=== PATIENT | female | born 1945 | race Caucasian/White ===

== ENCOUNTER 2018-02-05 01:12 | Outpatient (CLI) | payer OTHER, SELFPAY ==
--- NOTE | 2018-02-05 10:22 | DI.RAD_ITS ---
SYMPTOM/DIAGNOSIS: PRODUCTIVE COUGH, NO RESPONSE TO AB, R05 PA AND LATERAL CHEST: The lungs are free of infiltrate. There is no pleural effusion. The cardiovascular structures are intact. SUMMARY: No evidence of acute cardiopulmonary disease.
== END 2018-02-05 01:32 ==
PROVIDERS: PCP Family Medicine; Visit Provider Family Medicine
DX: R05 Cough (principal)
CPT/HCPCS: 71046

== ENCOUNTER 2018-11-19 00:36 | Outpatient (CLI) | payer OTHER, SELFPAY ==
--- NOTE | 2018-11-19 05:44 | DI.US_ITS ---
SYMPTOM/DIAGNOSIS: LUQ PAIN ABDOMEN ULTRASOUND: The visualized liver parenchyma appears somewhat echogenic and there is decrease through transmission raising the possibility of hepatic steatosis. Dependent portions of the liver are non visualized. No evidence of cholelithiasis or biliary dilatation. Pancreas appears intact as visualized. The kidneys are unremarkable bilaterally with no evidence of hydronephrosis or nephrolithiasis. There is a question of mild splenomegaly with the spleen measuring up to about 15 cm. in length. No focal splenic lesion identified. Abdominal aorta and IVC are of normal diameter as visualized. CONCLUSION: No evidence of cholelithiasis. Hepatic steatosis and question mild splenomegaly.
--- NOTE | 2018-11-19 07:30 | DI.MAMMO_ITS ---
SYMPTOM/DIAGNOSIS: SCREENING, Z12.31 MAMMOGRAMS: Mammograms were interpreted according to the usual protocol including computer analysis with CAD system, tomosynthesis and C view imaging. The breasts are of moderate density with fairly symmetrical distribution of fibroglandular tissue. No dominant mass identified in either breast. There is a group of microcalcifications in the left breast which have appeared stable on previous examinations including 01/2016. On the current examination, there is an increased number of microcalcifications in this area which lies in the lower outer quadrant of the left breast. This includes some questionable new pleamorphic forms. No other significant change identified in either breast. Regarding the change in the group of microcalcifications of the left breast, the possibility of malignancy could not be excluded. Additional evaluation with magnification spot compression views of the left breast and left breast ultrasound recommended to evaluate the need for biopsy. CONCLUSION: Additional mammographic views of the left breast requested as described above. Breast ultrasound recommended. Category 0. Breast density, Category B. MQSA ASSESSMENT OF FINDINGS: Incomplete: Needs additional imaging evaluation. Category 0. Patient will receive a letter notifying them of these results. BI-RADS category B. There are scattered areas of fibroglandular density.
== END 2018-11-19 00:56 ==
PROVIDERS: PCP Family Medicine; Visit Provider Family Medicine
DX: Z12.31 Encounter for screening mammogram for malignant neoplasm of breast (principal); R92.8 Other abnormal and inconclusive findings on diagnostic imaging of breast; R10.12 Left upper quadrant pain; K76.0 Fatty (change of) liver, not elsewhere classified; R16.1 Splenomegaly, not elsewhere classified
CPT/HCPCS: 77063; 77067; 76700

== ENCOUNTER 2018-11-26 00:37 | Outpatient (CLI) | payer OTHER, SELFPAY ==
--- NOTE | 2018-11-26 10:00 | DI.COMBO_ITS ---
SYMPTOM/DIAGNOSIS: F/U INCREASED NUMBER OF MICROCALCIFICATIONS ON MAMMOGRAM LT BREAST LEFT BREAST ADDITIONAL VIEWS AND LEFT BREAST ULTRASOUND: Additional images are interpreted according to the usual protocol including tomosynthesis and 2D imaging. Mediolateral magnification compression spot films of the left breast show a grouping of small calcifications, some of which appear pleamorphic as previously noted. At ultrasound, there is no mass. The possibility of a malignancy could not be excluded in this patient and further assessment with a biopsy is recommended. IMPRESSION: Category 4, biopsy is recommended. MQSA ASSESSMENT OF FINDINGS: Suspicious. Biopsy should be considered. Category 4. Patient will receive a letter notifying them of these results. BI-RADS category B. There are scattered areas of fibroglandular density.
== END 2018-11-26 00:57 ==
PROVIDERS: PCP Family Medicine; Visit Provider Family Medicine
DX: Z12.31 Encounter for screening mammogram for malignant neoplasm of breast (principal); R92.0 Mammographic microcalcification found on diagnostic imaging of breast
CPT/HCPCS: 76642; 77063; 77067

== ENCOUNTER 2020-02-24 07:59 | Outpatient (CLI) | payer OTHER, SELFPAY ==
[2020-02-26 14:48] LABS: Patient Race White; SARS-CoV-2 RNA Undetected (Undetected); SARS-CoV-2 Specimen Source Nasal
== END 2020-02-24 08:19 ==
PROVIDERS: PCP Family Medicine; Visit Provider Emergency Medicine
DX: J02.9 Acute pharyngitis, unspecified (principal); R05 Cough; R51.9 Headache, unspecified; R53.83 Other fatigue
CPT/HCPCS: U0003

== ENCOUNTER 2020-05-30 20:00 | Emergency (ER) | payer OTHER, SELFPAY ==
[2020-05-30 20:12] VITALS: BP 191/70; PULSE 79; RESP 18; O2SAT 95
--- NOTE | 2020-05-30 20:13 | ED.GENADUL_ITS ---
Discharge Plan Disposition Patient Disposition: HOME Condition: Good Discharge Details Clinical Impression: Contusion of right wrist, Abrasion Primary Care Provider: Karen Tobias ED Provider: Debbie Herrera Home Meds and New Rx's Prescriptions: Continued Restasis 1 EACH dropperette 1 drp OU BID Qty: 3 RF: 4 clobetasol-emollient 15 GM cream 15 gm Topical BID 14 Days Qty: 1 RF: 0 albuterol sulfate [ProAir HFA] 8.5 GM HFA aerosol inhaler 2 puff Inhalation Q6H PRN Qty: 1 RF: 0 amlodipine 5 mg tablet 5 mg PO DAILY Qty: 90 RF: 4 lisinopril 40 mg tablet 40 mg PO DAILY Qty: 90 RF: 4 pantoprazole [Protonix] 40 mg tablet,delayed release (DR/EC) 40 mg PO DAILY Qty: 90 RF: 4 pravastatin 20 mg tablet 20 mg PO DAILY Qty: 90 RF: 4 sertraline 50 mg tablet 50 mg PO DAILY Qty: 90 RF: 4 ketoconazole 2 % cream 1 applic TP BID Qty: 60 RF: 3 Discharge Instructions Instructions: Contusion in Adults (ED) Additional Instructions: Encourage rest, ice, elevation. May continue with Tylenol and/or ibuprofen as needed for discomfort. Please continue with splint while pain persist. Please follow-up with primary care for reevaluation next 1 to 2 weeks. Also discussed your elevated blood pressure further with your primary care. If you develop any new or worsening symptoms please seek care urgently once again. Referrals: Karen Tobias MD [Primary Care Provider] - Discharge Data Discharge Date/Time-TO BE ENTERED AT DEPARTURE: 05/30/20 20:55 Medical Decision Making Patient is a pleasant 74-year-old [id number] female presents today with chief complaint of right wrist pain. She reports a prior to arrival she fell and caught herself on a gate. She denies other injury condition. Did not trigger hand. She has been noted to tingling. Pain is at radiate. Indicates the distal radius as area of maximal tenderness. Suffered a small superficial abrasion on the anterior aspect of the wrist. Sensation is intact. No pain over the snuffbox. Good range of motion with no ligamentous. Capillary refill intact, 2+ distal pulses. Full range of motion of her fingers and elbow. Range of motion of the wrist is limited secondary to pain. Patient reports that she had NSAID prior to arrival. We will augment this with Tylenol. Patient is reviewed by myself. Do not see any misalignment or fracture. When read from radiologist. Nothing evidence to suggest scaphoid fracture. She has no pain with axial loading of the thumb, no pain palpation of the anatomical snuffbox. We will place the patient in a universal wrist splint to help support during the time of discomfort. Encouraged rest, ice, elevation. She will continue with Tylenol and ibuprofen as needed for comfort. Blood pressure is initially quite elevated lipids come down significantly. She does have a history of hypertension will discuss this further with her primary care. Also questions and concerns were addressed and she is agreement this plan. She will follow-up with primary care in the next 1 to 2 weeks for reevaluation of her wrist. FINDINGS: Bones/joints: No fracture or subluxation. Degenerative changes. Soft tissues: Normal. IMPRESSION: No acute findings. HPI General Mode of arrival: ambulatory . Date/Time Provider Initiated Documentation: 05/30/20 20:12 . Limitations to Documentation: no limitations . Information obtained by: patient and RN notes reviewed . History of Present Illness 74 year old F presents to the emergency department with the chief complaint of right wrist pain after FOOSH, described as severe, with intens ity rated at 10. Quality is described as aching, and is localized to the right and upper extremity. Patient reports no radiation. Patient started experiencing this hour(s) (1) and it has been constant. Immobilization improves symptom(s), Movement worsens symptoms . Patient notes no other symptoms.. Patient did receive the following treatments prior to arrival, NSAID Related Data Home Medications Medication Instructions Recorded Confirmed Restasis 1 drp OU BID #3 ea 11/04/17 03/12/19 clobetasol-emollient 15 gm TOPICAL BID 14 Days #1 tube 11/04/17 03/12/19 albuterol sulfate [ProAir HFA] 2 puff INHALATION Q6H PRN #1 01/01/18 03/12/19 inhaler amlodipine 5 mg tablet 5 mg PO DAILY #90 tab-cap 08/17/19 lisinopril 40 mg tablet 40 mg PO DAILY #90 tab-cap 08/17/19 pantoprazole 40 mg tablet,delayed 40 mg PO DAILY #90 tab-cap 08/17/19 release pravastatin 20 mg tablet 20 mg PO DAILY #90 tab-cap 08/17/19 sertraline 50 mg tablet 50 mg PO DAILY #90 tab-cap 08/17/19 ketoconazole 2 % topical cream 1 applic TP BID #60 gm 10/29/19 Previous Rx's Medication Instructions Recorded Restasis 1 drp OU BID #3 ea 11/04/17 clobetasol-emollient 15 gm TOPICAL BID 14 Days #1 tube 11/04/17 albuterol sulfate [ProAir HFA] 2 puff INHALATION Q6H PRN #1 01/01/18 inhaler amlodipine 5 mg tablet 5 mg PO DAILY #90 tab-cap 08/17/19 lisinopril 40 mg tablet 40 mg PO DAILY #90 tab-cap 08/17/19 pantoprazole 40 mg tablet,delayed 40 mg PO DAILY #90 tab-cap 08/17/19 release pravastatin 20 mg tablet 20 mg PO DAILY #90 tab-cap 08/17/19 sertraline 50 mg tablet 50 mg PO DAILY #90 tab-cap 08/17/19 ketoconazole 2 % topical cream 1 applic TP BID #60 gm 10/29/19 Allergies Allergy/AdvReac Type Severity Reaction Status Date / Time Metronidazole HCl AdvReac Severe stomach Unverified 03/12/19 09:00 [From Flagyl] upset amoxicillin [Amoxicillin] AdvReac Intermediate GI UPSET Unverified 03/12/19 09:00 clavulanic acid AdvReac Intermediate GI UPSET Unverified 03/12/19 09:00 erythromycin base AdvReac Intermediate Nausea Unverified 03/12/19 09:00 [Erythromycin Base] meloxicam AdvReac Intermediate Nausea Unverified 03/12/19 09:00 Sulfa (Sulfonamide AdvReac Intermediate NAUSEA AND Unverified 03/12/19 09:00 Antibiotics) VOMITING Review of Systems Constitutional Constitutional: Reports as per HPI, Denies chills, Denies fever(s), Denies headache(s) and Denies weakness ENT Ears, Nose, Mouth, and Throat: Denies headache(s) Cardiovascular Cardiovascular: Reports as per HPI Respiratory Respiratory: Reports as per HPI and Denies cough Musculoskeletal Musculoskeletal: Reports as per HPI and Denies tingling Integumentary/Breasts Skin/Breast: Reports as per HPI, Denies rash and Denies wounds Neurologic Neurologic: Reports as per HPI, Denies headache(s), Denies tingling, Denies paresthesias and Denies weakness [facility] Medical History Acute gouty arthritis (05/14/17) Benign essential hypertension COPD (chronic obstructive pulmonary disease) Diverticulosis of colon without diverticulitis GERD (gastroesophageal reflux disease) Heart murmur Hypercholesterolemia Non-alcoholic fatty liver disease Osteoarthritis of knee Polyp of colon 07/2010; 12/03/12 : multiple polyps including tubular adenomas and pandiverticulosis. 2016:sessile serrated adenoma/ Surgical History Abdominal hysterectomy fibroids Bilateral salpingectomy with oophorectomy Cervical Procedure (~1983) 1983; cryotherapy and bx Colonoscopy - IV Sedation (12/03/12) Colonoscopy - MAC (04/20/16) Dilation and curettage (~1994) for benign reasons. Had superficial wound dehiscence. Social History Smoking/Tobacco Use Status: Former Tobacco Use Quit Date: 06/13/12 Pack-years: 25 Smoking risk assessment performed?: Yes Alcohol Intake: current Alcohol Intake frequency: a few times a month Drug use: Never Substance use type: does not use Adopted: Yes Duration: 15-30 minutes/day Frequency: 3-4 times per week Seatbelt use: always Do you feel safe at home: Yes Do you feel safe in your relationship?: Yes Exam Const General: cooperative, healthy appearing, comfortable, no acute distress, well developed and well groomed Nutritional Appearance: average body habitus and well nourished Orientation: alert and awake Resp Effort & Inspection: normal respiratory effort, able to speak in complete sentences and no respiratory distress Cardio Rate: regular rate Rhythm: regular rhythm Skin Trauma: abrasion (anterior right wrist) Neuro General: patient alert and patient awake Cognition: normal cognition Speech: speech normal Gait: normal gait Motor: muscle tone normal throughout Sensory Exam: no sensory deficits noted Extrem Elbow/forearm/wrist images: 1. area of tenderness and swelling. Small area of abrasion noted with no active bleeding, no deep wound. Full ROM of fingers and elbow. No numbness or tingling. No snuff box tenderness. ROM of wrist limited secondary to pain. No palpable fracture. Psych Appearance: grossly normal and well kempt Mental Status: mental status grossly normal Speech and Movement: speech and movement normal
--- NOTE | 2020-05-30 20:15 | DI.RAD_ITS ---
EXAM: XR WRIST RT COMPLETE CLINICAL HISTORY: radial pain after FOOSH. TECHNIQUE: 2D digital imaging was performed. COMPARISON: No exams were available for comparison FINDINGS: BONES: On the lateral view there appears to be disruption of the cortex of the posterior aspect of th e distal radius suspicious for nondisplaced fracture. No bony destructive lesion is seen. JOINTS: The carpal bones are normally aligned. Degenerative changes are seen in the wrist particularl y at the 1st CMC joint. SOFT TISSUE: Soft tissue swelling about the wrist. IMPRESSION: Findings suspicious for nondisplaced fracture involving the posterior cortex of the distal radius bes t appreciated on the lateral view. DATA REPOSITORY: RADIATION DOSE DELIVERED:
[2020-05-30] MEDS: Acetaminophen 500 MG TAB 1000 MG PO (20:28)
[2020-05-30 20:48] VITALS: BP 165/74
[2020-05-30 20:52] VITALS: BP 165/74; PULSE 79; RESP 18; TEMP 36.4; O2SAT 95
--- NOTE | 2020-05-30 21:09 | DI.VRAD_ITS ---
PROCEDURE INFORMATION: Exam: XR Right Wrist Exam date and time: 05/30/2020 8:26 PM Age: 74 years old Clinical indication: Wrist; Right; Patient HX: Radial pain after foosh TECHNIQUE: Imaging protocol: XR Right wrist. Views: 3 or more views. COMPARISON: No relevant prior studies available. FINDINGS: Bones/joints: No fracture or subluxation. Degenerative changes. Soft tissues: Normal. IMPRESSION: No acute findings. Dictated and Authenticated by: Brenton Palmer MD. Ordering:MELODIE Lewis MD
== END 2020-05-30 20:55 | disposition home or self-care (01) ==
PROVIDERS: Emergency Provider Physician Assistant; PCP Family Medicine
DX: S60.811A Abrasion of right wrist, initial encounter (principal); X50.9XXA Other and unspecified overexertion or strenuous movements or postures, initial encounter; I10 Essential (primary) hypertension; J44.9 Chronic obstructive pulmonary disease, unspecified; Z87.891 Personal history of nicotine dependence
CPT/HCPCS: 29125; 99283; 73110

== ENCOUNTER 2020-06-06 10:21 | Outpatient (CLI) | payer OTHER, SELFPAY ==
--- NOTE | 2020-06-06 09:30 | DI.RAD_ITS ---
EXAM: XR WRIST RT COMPL NAVICULAR CLINICAL HISTORY: R wrist injury. TECHNIQUE: 2D digital imaging was performed. COMPARISON: CR,XR XR WRIST RT COMPLETE from 05/30/2020 FINDINGS: There is no evidence of acute fracture nor carpal dislocation nor significant ulnar variance. Previo usly described addition density on the dorsal aspect of distal radius is unchanged. I do not see an obvious fracture line at this level. Degenerative changes are noted in the lateral aspect of the wri st at the articulation between the thumb metacarpal and trapezium. There are no erosions. No signif icant ulnar variance. IMPRESSION: DATA REPOSITORY: RADIATION DOSE DELIVERED:
== END 2020-06-06 10:41 ==
PROVIDERS: PCP Family Medicine; Referring Provider Family Medicine; Visit Provider Student in an Organized Health Care Education/Training Program
DX: S60.211A Contusion of right wrist, initial encounter (principal); M19.031 Primary osteoarthritis, right wrist; M25.531 Pain in right wrist; S52.511A Displaced fracture of right radial styloid process, initial encounter for closed fracture; W01.0XXA Fall on same level from slipping, tripping and stumbling without subsequent striking against object, initial encounter
CPT/HCPCS: 99214; 73110

== ENCOUNTER 2020-07-01 10:15 | Outpatient (CLI) | payer OTHER, SELFPAY ==
--- NOTE | 2020-07-01 10:00 | DI.RAD_ITS ---
EXAM: XR WRIST RT COMPL NAVICULAR CLINICAL HISTORY: right wrist pain. TECHNIQUE: 2D digital imaging was performed. COMPARISON: CR XR WRIST RT COMPL NAVICULAR from 06/06/2020 FINDINGS: BONES: There is a subacute appearing fracture extending transversely through the distal radial metaph ysis. There is no visible involvement of the articular surface. The distal ulna and carpal bones ap pear intact. Degenerative changes are seen at the 1st carpal metacarpal joint.. No bony destructive lesion is seen. JOINTS: The carpal bones are normally aligned. SOFT TISSUE: Normal. IMPRESSION: Subacute nondisplaced fracture of the distal radius. DATA REPOSITORY: RADIATION DOSE DELIVERED:
== END 2020-07-01 10:16 | disposition home or self-care (01) ==
LOC: DIORS 10:16
PROVIDERS: PCP Family Medicine; Referring Provider Family Medicine; Visit Provider Student in an Organized Health Care Education/Training Program
DX: M25.531 Pain in right wrist (principal); M18.51 Other unilateral secondary osteoarthritis of first carpometacarpal joint, right hand; S52.511A Displaced fracture of right radial styloid process, initial encounter for closed fracture; S52.591D Other fractures of lower end of right radius, subsequent encounter for closed fracture with routine healing; W19.XXXD Unspecified fall, subsequent encounter
CPT/HCPCS: 99214; 73110

== ENCOUNTER 2020-07-29 11:33 | Outpatient (CLI) | payer OTHER, SELFPAY ==
--- NOTE | 2020-07-29 11:06 | DI.RAD_ITS ---
EXAM: XR WRIST RT LIMITED INDICATION: f/u fracture. COMPARISON: CR XR WRIST RT COMPL NAVICULAR from 06/06/2020 CR XR WRIST RT COMPL NAVICULAR from 06/06/2020 CR XR WRIST RT COMPL NAVICULAR from 07/01/2020 CR XR WRIST RT COMPL NAVICULAR from 07/01/2020 TECHNIQUE: 2D digital imaging was performed. FINDINGS: Increasing sclerosis, consistent with continued healing is noted at the distal radial fracture which remains nondisplaced. Degenerative changes are again noted at the 1st carpal metacarpal joint. DATA REPOSITORY: RADIATION DOSE DELIVERED:
== END 2020-07-29 11:34 | disposition home or self-care (01) ==
LOC: DIORS 11:33
PROVIDERS: PCP Family Medicine; Referring Provider Family Medicine; Visit Provider Student in an Organized Health Care Education/Training Program
DX: S52.591D Other fractures of lower end of right radius, subsequent encounter for closed fracture with routine healing (principal); M18.11 Unilateral primary osteoarthritis of first carpometacarpal joint, right hand; X58.XXXD Exposure to other specified factors, subsequent encounter
CPT/HCPCS: 99213; 73100

== ENCOUNTER 2020-08-22 18:24 | Outpatient (REF) | payer OTHER, SELFPAY ==
[2020-08-24 12:24] LABS: COVID-19 RT-PCR UVMMC Result Negative (Negative)
== END 2020-08-22 18:25 | disposition home or self-care (01) ==
LOC: LBN 18:24
PROVIDERS: PCP Family Medicine; Visit Provider Nurse Practitioner Family
DX: Z20.822 Contact with and (suspected) exposure to COVID-19 (principal); J02.9 Acute pharyngitis, unspecified
CPT/HCPCS: U0003

== ENCOUNTER 2020-09-02 02:15 | Outpatient (CLI) | payer OTHER, SELFPAY ==
[2020-09-02 11:27] LABS: Hemoglobin A1C 6.2 % (<5.7)
[2020-09-02 11:43] LABS: ALT 73 U/L (14-59); AST 50 U/L (15-37); Albumin 3.9 g/dL (3.4-5.0); Alkaline Phosphatase 146 U/L (46-116); Anion Gap 8.5 mmol/L (3-11); BUN 13 mg/dL (7-18); Bilirubin, Total 0.8 mg/dL (0.2-1.0); CO2 28.5 mmol/L (21.0-32.0); CREATININE 0.9 mg/dL (0.55-1.02); Calculated LDL 114 mg/dL (<100); Chloride 106 mmol/L (98-107); Cholesterol 189 mg/dL (<200); Glucose 146 mg/dL (74-106); HDL Cholesterol 37 mg/dL (40-60); Potassium 3.9 mmol/L (3.5-5.1); Sodium 143 mmol/L (136-145); Total Protein 7.4 g/dL (6.4-8.2); Triglyceride 192 mg/dL (<150)
== END 2020-09-02 02:16 | disposition home or self-care (01) ==
LOC: LBO 02:15
PROVIDERS: PCP Family Medicine; Visit Provider Family Medicine
DX: I10 Essential (primary) hypertension (principal); R73.03 Prediabetes; E83.42 Hypomagnesemia
CPT/HCPCS: 36415; 80053; 80061; 83036; 83735

== ENCOUNTER 2020-09-12 12:27 | Outpatient (CLI) | payer OTHER, SELFPAY ==
[2020-09-12] MEDS: Albuterol HFA 18 GM 200 PUFF INH IH (11:23)
[2020-09-12] MEDS: Inhaler, Assist Device 1 EACH MC (11:23)
--- NOTE | 2020-09-12 13:21 | W.PFT ---
Date of service: 09/12/20 Time of Service: 10:40 Pulmonary Function Test Result Interpretation Spirometry: Mild obstructive airways disease with Some, but not significant bronchodilator response Lung Volumes: No evidence of restriction Diffusion Capacity: Mildly reduced which is normal when corrected to alveolar volume Airway Pressure: Elevated Impression Borderline mild obstructive airways disease with some but not significant bronchodilator response Clinical Correlation therefore is recommended.
== END 2020-09-12 12:28 | disposition home or self-care (01) ==
LOC: RT 09-14 12:27
PROVIDERS: PCP Family Medicine; Visit Provider Family Medicine
DX: R06.09 Other forms of dyspnea (principal); R07.89 Other chest pain; Z87.891 Personal history of nicotine dependence
CPT/HCPCS: 94060; 94726; 94729

== ENCOUNTER 2020-09-15 02:29 | Outpatient (CLI) | payer OTHER, SELFPAY ==
--- NOTE | 2020-09-15 07:30 | DI.MAMMO_ITS ---
Exam(s) MAMMO SCREENING EXAM: MAMMO SCREENING CLINICAL HISTORY: screening,Z12.39 TECHNIQUE: Mammograms were interpreted according to the usual protocol including computer analysis w [employer] CAD system, tomosynthesis and C-view imaging. COMPARISON: FINDINGS: The breasts are of moderate density with fairly symmetrical distribution of fibroglandular tissue. N o dominant mass or clumped microcalcification is identified in either breast. The current examinatio n is compared with previous examinations including November 2018 and there has been no gross interval juan nge in appearance in comparison with the prior studies. IMPRESSION: No specific evidence of malignancy at this time. Routine screening examinations are suggested at yea rly intervals in this age group according to the ACS ACR guidelines. BI-RADS Category 1 - Negative Breast Density - Category B - Scattered areas of fibroglandular density
--- NOTE | 2020-09-15 12:56 | DI.US_ITS ---
APPROVED REPORT EXAM: Comprehensive 2D, Doppler, and color-flow Echocardiogram Patient Location: Out-Patient Cover Cutter: Roxie Rivera RDCS (AE) Indications: Dyspnea on exertion Other Information Study Quality: Adequate Conclusion Normal left ventricular chamber size. Mild concentric left ventricular hypertrophy. Estimated eject ion fraction is 60 to 65%. Wall motion is normal Normal right ventricular size and systolic function Both atria are normal in size No significant valvular disease Wall motion Left Ventricle The left ventricle is normal size. The left ventricular systolic function is normal. The left ventric ular ejection fraction is within the normal range. Mild concentric left ventricular hypertrophy. Ther e is normal LV segmental wall motion. There is no ventricular septal defect visualized. LVEF is 60-65 %. Right Ventricle The right ventricle is normal size. The right ventricular systolic function is normal. The RVSP is 34 .3mmHg. Atria The left atrium size is normal. The right atrium size is normal. The interatrial septum is intact wit h no evidence for an atrial septal defect. Aortic Valve The aortic valve is normal in structure. There is no aortic valvular stenosis. No aortic regurgitatio n is present. Mitral Valve The mitral valve is normal in structure. No evidence of mitral valve stenosis. Trace mitral regurgita tion. Tricuspid Valve The tricuspid valve is normal in structure. There is no tricuspid valve stenosis. Trace tricuspid reg urgitation. Pulmonic Valve The pulmonary valve is normal in structure. There is no pulmonic valvular stenosis. Trace to mild pul aliyah regurgitation. Great Vessels The aortic root is normal in size. The ascending aorta is normal in size. Aortic arch is not well vis ualized. IVC is normal in size and collapses >50% with inspiration. Pericardium There is no pericardial effusion. 2D Dimensions IVSD d PLAX 1.12 cm F: 0.6-1.0 LV Vol A2C d MOD 89.4 mL LVPW d PLAX 1.16 cm F: 0.6 - 1.0 LV Vol A4C d MOD 112.5 mL LVID d PLAX 4.70 cm F: 3.8 - 5.2 LA vol/ BSA A2C s A-L 28.9 mL/m2 LVDs 3.00 cm F: 2.2 - 3.5 LA vol/ BSA A4C s A-L 35.2 mL/m2 Ao Root d 2.40 cm F: 2.7 - 3.3 LA Vol/ BSA Biplane s A-L 33.4 mL/m2 RA Area A4C 15.72 cm2 LA Area A4C s MOD 21.84 cm2 RA Vol/ BSA A4C s A-L 21.5 mL/m2 LA Area A2C s MOD 18.92 cm2 Ao Asc Diam d 3.27 cm F: 2.3 - 3.1 LV EF A4C MOD 58.9 % LV EF Teichholz 64.9 % LV EF A2C MOD 67.7 % LVEF (Todd's) 60.67 % F: 54 - 74 LV EF Biplane MOD 60.7 % LV Volume 76.39 mL F: 46 - 106 SV 61.63 mL LV Volume Index 38.58 mL/m2 F: 29 - 61 SV Index 31.06 mL/m2 LV Vol Biplane MOD 101.6 mL FS 35.50 % M-Mode TAPSE 2.75 cm (M/F) >1.7 LV Diastology MV E' medial 0.108 (>0.07 m/s) E/A Ratio 1.2 LV E/e MED 10.90 (<14) MV E Vmax 1.17 (0.4-1.3 m/s) MV E' lateral 0.093 (>0.1 m/s) MV A Vmax 0.95 (0.4-1.3 m/s) LV E/e LAT 12.60 (<14) MV E/A Ratio 1.19 MV E/E' medial 10.91 MV E/E' lateral 12.63 Aortic Valve LVOT Area 2.92 cm2 AoV Area Vmax 2.42 cm2 LVOT Vmax 1.56 m/s AoV Area/ BSA (Vmax) 1.22 cm2/m2 LVOT Mean Manuel. 1.03 m/s SONALI Mean Manuel. 2.18 cm2 LVOT Peak Grad 9.7 mmHg SONALI Mean Manuel. Index 1.10 cm2/m2 LVOT Mean Grad 5.0 mmHg LVOT VTI 0.334 m LVOT Diam s 1.90 cm AoV Vmax 1.88 m/s Velocity Ratio 0.82 AoV Mean Manuel. 1.38 m/s AoV Peak Grad 14.1 mmHg LVOT SV 97.47 mL AoV Mean Grad 8.4 mmHg AoV VTI 0.456 m AoV Area VTI 2.14 cm2 AoV Area/ BSA (VTI) 1.08 cm/m2 Mitral Valve MV DT 284 (160-240 msec) MV PHT 82 msec MV Area PHT 2.67 cm2 MV VTI 0.382 m MV VTI Annulus 0.397 m MV Area VTI 2.66 (4.0-6.0 cm2) Pulmonary Valve PV Vmax 1.17 (0.5-1.5 m/s) RVOT Peak Gr. 5.42 mmHg PV Peak Grad 5.5 mmHg RVOT Mean Gr. 2.70 mmHg PV Mean Grad 2.9 mmHg RVOT VTI 0.257 m PV VTI 0.236 m RVOT Vmax 1.16 m/s Tricuspid Valve TR Peak Grad 31.3 mmHg TR Vmax 2.80 m/s RA Pressure 3.00 mmHg RVSP (TR) 34.3 mmHg
== END 2020-09-15 02:49 ==
PROVIDERS: PCP Family Medicine; Visit Provider Family Medicine
DX: R06.09 Other forms of dyspnea (principal); Z12.31 Encounter for screening mammogram for malignant neoplasm of breast
CPT/HCPCS: 77063; 77067; 93306

== ENCOUNTER → 2020-09-23 10:02 | Outpatient (BNVA) | payer OTHER, SELFPAY | PROVIDERS: PCP Family Medicine; Referring Provider Family Medicine; Visit Provider Surgery | DX: R15.2 Fecal urgency (principal); J44.9 Chronic obstructive pulmonary disease, unspecified; Z87.891 Personal history of nicotine dependence; R06.02 Shortness of breath | CPT/HCPCS: 99214 ==

== ENCOUNTER 2020-10-12 09:26 | Day surgery (SDC) | payer OTHER, SELFPAY ==
--- NOTE | 2020-10-12 06:59 | W.COLOREPORT ---
Date of service: 10/12/20 Time of Service: 10:43 Colonoscopy Report Date of procedure: 10/12/20 Pre-op diagnosis general: Hx of polyps Post-op diagnosis procedure note: other (diverticulosis, polyps, lipoma) Procedure: Colonoscopy with polypectomy Surgeon: Ruchi Fisher Anesthesia Type: General:No Airway (ASA 3/ Mc Noe CRNA) Estimated blood loss (mL): 3 Pathology: other (Cecal polyp, sigmoid polyp, lipoma bx) Complications: None Disposition: same day Indications: Mrs Restrepo is a pleasant 75-year-old female who is here today to discuss another colonoscopy. Her last colonoscopy was in 2015 at which time she was noted to have a sessile serrated adenoma in the transverse colon. She was asked to come back in 5 years. She denies any melena, hematochezia, abdominal pain or unintentional weight loss. Over the last year she has developed with fecal urgency and incontinence usually about 15 to 20 minutes after eating. She has also developed urinary frequency and incontinence. This started gradually. She says sometimes she does have a more solid stool which she is able to control. She still gets the urgency but does not have any incontinence with that. She has not noted any blood in her stool. She has had a hysterectomy in the past. She has not felt like there is tissue coming out of the rectum. There is no prolapse of her bladder that she is aware of. She does have a past medical history of COPD. She gets short of breath with walking has a tight chest with walking as well. She denies any chest pain. She did have a recent echo. She has an ejection fracture of 60 to 65%. There is no aortic stenosis. The echocardiogram was reviewed. Risks, benefits and complications have been reviewed. Complications include but are not limited to bleeding, pain, perforation, missed small lesion/polyp, sore throat, aspiration and adverse reaction to the medications. Questions were entertained and answered to their satisfaction and they wished to proceed. No guarantees were given or implied. Proceed with colonoscopy under sedation Prep: Miralax/Dulcolax Procedure Start Time: :43 Procedure End Time: 11:11 Retraction Time: 23 minutes Findings: Diverticulosis polyps of cecum and sigmoid colon ? lipoma at the ileocecal valve Procedure Description: After informed consent was obtained the patient was taken to the procedure room and placed in a left decubitous position. Monitors were applied and a time out was done. The patients name, date of , procedure, allergies to medications and metal in their body was reviewed. The patient was then sedated. Once sedated and comfortable a rectal exam was done. External exam was normal. Internal exam revealed a normal sphincter tone and no palpable masses. The scope was then introduced and retro-flexed. No internal hemorrhoids, polyps or masses were identified on retro-flexion. The scope was then advanced to the cecum without difficulty. The ileocecal vlave and appendiceal orifice were identified. The prep was adequate. The scope was then slowly retracted over 23 minutes back into the rectum. Polyps were removed with cold forceps in the cecum and sigmoid colon. Biopsies were done of a soft mass that looked like a lipoma at the ileocecal vlave. There was moderate diverticulosis noted of the descending and sigmoid colon. The scope was removed and the patient was woken up and taken back to Same day surgery in stable condition. The patient tolerated the procedure well and there were no immediate complications. Follow up: The patient should follow up in 5 years unless they develop changes in bowel habits or other new gastrointestinal complaints.
--- NOTE | 2020-10-12 07:00 | W.PM.DSUDISC ---
Discharge Plan Disposition Patient Disposition: HOME Condition: Good Discharge Details Reason For Visit: Hx of colon polyps Attending Provider: Ruchi Fisher Primary Care Provider: Karen Tobias Home Meds and New Rx's Prescriptions: Continued atorvastatin 40 mg tablet 20 mg PO DAILY Qty: 30 RF: 4 amlodipine 5 mg tablet 10 mg PO DAILY Qty: 90 RF: 0 lisinopril 40 mg tablet 40 mg PO DAILY Qty: 90 RF: 4 sertraline 50 mg tablet 50 mg PO DAILY Qty: 90 RF: 4 pantoprazole [Protonix] 40 mg tablet,delayed release (DR/EC) 40 mg PO DAILY Qty: 90 RF: 2 ketoconazole 2 % cream 1 applic TP BID Qty: 60 RF: 3 Discontinued bisacodyl [Dulcolax (bisacodyl)] 5 mg tablet,delayed release (DR/EC) 5 mg PO ONCE Qty: 4 RF: 0 polyethylene glycol 3350 17 gram powder in packet 255 g PO DAILY Qty: 15 RF: 0 Discharge Instructions Additional Instructions: Findings: 2 small polyps a lipoma ( benign fatty tumour) Diverticulosis Follow up: 5 years Please call if you develop: fevers >101.5 Nausea or Vomiting Abdominal pain that is not transient Rectal bleeding that is more then a tbsp A hard abdomen and inability to pass gas DAY SURGERY UNIT POST ENDOSCOPY INSTRUCTIONS Instructions for everyone who is given Anesthesia: For your safety, please do the following for the next 24 Hours: a. Do not drive or operate dangerous equipment b. Do not drink alcohol beverages or use any recreational drugs for the first 24 hours or while taking pain medications. The medications in your body may have a reaction that can be dangerous. c. Do not make any important decisions or sign any important papers 1. Generally there are no restrictions on your activity after a day or so has gone by, but you may feel a bit fatigued for a few days. 2. After you arrive home you may have a light meal and return to a normal diet as you can tolerate it without feeling sick to your stomach. 3. After surgery, you may feel pain or discomfort. This should be only transient, but if it persists please contact your doctor. 4. If there are any questions regarding the findings of your procedure, please feel free to contact your doctor. 6. If you are unable to contact your doctor with a problem, contact the hospital at [phone]. 7. Continue all your regular medications unless directed otherwise. I understand the above instructions and have no questions. Signature of Patient or Responsible Adult Escort Date/Time Name of Responsible Adult Escort Signature of Nurse Date/Time Activity:: Activity as Tolerated Diet:: High Fiber diet Discharge Orders Discharge Orders: Discharge Order (Routine); Ordered 10/12/20 Ordered By: Ruchi Fisher
[2020-10-12 10:05] VITALS: BP 160/73; PULSE 73; RESP 18; TEMP 36.3; O2SAT 95
[2020-10-12] MEDS: Lactated Ringers 1,000 ML 80 ML IV (10:20)
--- NOTE | 2020-10-12 10:20 | W.ANESPRE ---
General Info Date of Service Date Performed: 10/12/20 Height: 5 ft Weight: 96.7 kg Body Mass Index (BMI): 41.6 Surgical Procedure: Operation Date: 10/12/20 11:05 Proposed Procedures Side Surgeon p Colonoscopy Ruchi Fisher MD Meds Allergies and Home Medications Allergies Allergy/AdvReac Type Severity Reaction Status Date / Time Metronidazole HCl AdvReac Severe stomach Verified 10/12/20 10:01 [From Flagyl] upset amoxicillin [Amoxicillin] AdvReac Intermediate GI UPSET Verified 10/12/20 10:01 clavulanic acid AdvReac Intermediate GI UPSET Verified 10/12/20 10:01 erythromycin base AdvReac Intermediate Nausea Verified 10/12/20 10:01 [Erythromycin Base] meloxicam AdvReac Intermediate Nausea Verified 10/12/20 10:01 Sulfa (Sulfonamide AdvReac Intermediate NAUSEA AND Verified 10/12/20 10:01 Antibiotics) VOMITING Home Medication Medication Instructions Recorded lisinopril 40 mg tablet 40 mg PO DAILY #90 tab-cap 09/02/20 pantoprazole 40 mg tablet,delayed 40 mg PO DAILY #90 tab-cap 09/02/20 release sertraline 50 mg tablet 50 mg PO DAILY #90 tab-cap 09/02/20 atorvastatin 40 mg tablet 20 mg PO DAILY #30 tab 09/07/20 amlodipine 5 mg tablet 10 mg PO DAILY #90 tab-cap 09/09/20 ketoconazole 2 % topical cream 1 applic TP BID #60 gm 09/13/20 bisacodyl 5 mg tablet,delayed 5 mg PO ONCE #4 tab 09/23/20 release polyethylene glycol 3350 17 gram 255 g PO DAILY #15 ea 09/23/20 oral powder packet Current Visit Medications: Current Medications Generic Name Dose Route Start Last Admin Trade Name Freq PRN Reason Stop Dose Admin Hyoscyamine Sulfate 0.125 mg 10/12/20 07:01 Hyoscyamine 0.125 Mg Sl/Oral/Chew SL DIRECTED PRN Ringer's Solution 1,000 mls @ 80 mls/hr 10/12/20 06:00 IV 11/10/20 23:59 INFUSION RADHA IV Miscellaneous Supplies 1 each 10/12/20 06:00 Iv Access IV 11/10/20 23:59 DIRECTED RADHA Ondansetron HCl 4 mg 10/12/20 07:01 Ondansetron 4 Mg/2 Ml Vial IVP Q4H PRN PRN Nausea / Vomiting Sodium Chloride 0 ml 10/12/20 06:00 Normal Saline Flush 10 Ml Syr IV 11/10/20 23:59 PRN PRN Sodium Chloride 0 ml 10/12/20 06:00 Normal Saline 10 Ml Vial IJ 11/10/20 23:59 DIRECTED PRN Sterile Water 0 ml 10/12/20 06:00 Water,Injection,Sterile 10 Ml Vial IJ 11/10/20 23:59 DIRECTED PRN PFSH Active Problems Active Problems: Problem Status Onset Code Chronic obstructive lung disease J44.9 Depressive disorder F32.9 Diverticulosis of colon without diverticulitis 12/01/12 K57.30 Essential hypertension 09/08/13 I10 Gastroesophageal reflux disease K21.9 Heart murmur R01.1 Hyperlipidemia 08/12/12 E78.5 Increased body mass index 08/18/13 R63.8 Non-alcoholic fatty liver disease 12/01/12 K76.0 Pre-diabetes R73.03 Serrated adenoma of colon 04/20/16 D12.6 Smoker F17.200 Exertional dyspnea R06.00 Fracture of right distal radius 05/30/20 S52.501A Osteoarthritis of knee M17.10 Medical History Medical History Acute gouty arthritis (05/14/17) Benign essential hypertension COPD (chronic obstructive pulmonary disease) Diverticulosis of colon without diverticulitis Fracture of right distal radius (05/30/20) GERD (gastroesophageal reflux disease) Heart murmur Hypercholesterolemia Non-alcoholic fatty liver disease Osteoarthritis of knee Polyp of colon 07/2010; 12/03/12 : multiple polyps including tubular adenomas and pandiverticulosis. 2016:sessile serrated adenoma/ Surgical History Surgical History (Updated 10/12/20 @ 10:04 by Danelle Lange) Abdominal hysterectomy fibroids Bilateral salpingectomy with oophorectomy Cervical Procedure (~1983) 1983; cryotherapy and bx Colonoscopy - IV Sedation (12/03/12) Colonoscopy - MAC (04/20/16) Dilation and curettage (~1994) for benign reasons. Had superficial wound dehiscence. Hx of breast biopsy Left Tobacco Smoking/Tobacco Use Status: Former Tobacco Use Passive smoking exposure: Yes Alcohol Alcohol Intake: current Alcohol intake frequency: a few times a month Alcohol type: beer, wine and hard liquor Substance Use Substance use: Never Substance use type: does not use Details: alcohol: t-7 Vital Signs and Lab Results Vital Signs Most Recent Vital Signs in EMR: Most Recent Vital Signs Temp Pulse Resp BP Pulse Ox 36.3 C L 73 18 160/73 H 95 10/12/20 10:10/12/20 10:10/12/20 10:10/12/20 10:10/12/20 10:05 Lab Results Blood Type / Crossmatch: No Data to Display Complete Blood Count: No Data to Display Complete Metabolic Panel: No Data to Display Liver Function Panel: No Data to Display Coagulation Panel: No Data to Display Cardiac Panel: No Data to Display Arterial Blood Gas: No Data to Display Venous Blood Gas: No Data to Display Pancreas Panel: No Data to Display Thyroid Panel: No Data to Display Infectious Disease: No Data to Display Blood Cultures: No Data to Display Toxicology Panel: No Data to Display Imaging and Studies Imaging and Studies Echocardiogram Summary: 09/15/20 : 1945 Age: 75 APPROVED REPORT EXAM: Comprehensive 2D, Doppler, and color-flow Echocardiogram Patient Location: Out-Patient Film Writer: Roxie Rivera RDCS (AE) Indications: Dyspnea on exertion Other Information Study Quality: Adequate Conclusion Normal left ventricular chamber size. Mild concentric left ventricular hypertrophy. Estimated ejection fraction is 60 to 65%. Wall motion is normal Normal right ventricular size and systolic function Both atria are normal in size No significant valvular disease Pulmonary Function Summary: PFT reviewed and WNL Anesthesia Assessment and Plan Anesthesia History Personal History: No History of Anesthesia Complications Family History: No Family History of Anesthesia Complications Exercise Tolerance Exercise Tolerance: Metabolic Equivalents<4 Pertinent Negatives Pertinent Negatives: No Symptoms of GERD, No Major Cardiovascular Symptoms or Complaints and No Major Pulmonary Symptoms or Complaints (Recent SOB) Cardiac & Pulmonary Exam Cardiac Exam: Normal S1/S2 Heart Sounds and Heart Murmur Present (Unable to auscultate) Pulmonary Exam: Clear Bilateral Breath Sounds Airway Exam Known Difficult Airway: No Mallampati Class: 2 Mouth Opening: Normal (> 3cm) Thyromental Distance: Greater than 3 cm Neck Range of Motion: Full ROM Neck Circumference: Normal Teeth Condition: Normal Dentition ASA Classification ASA Score: ASA 3 Emergency Case?: No NPO Status NPO Status: NPO Clears >2 hours, Solids >8 hours Anesthesia Plan Resuscitation Status: Full Code Anesthesia Technique: General Anesthesia Airway Planned: Natural Airway Monitors Used: Standard Monitors
[2020-10-12 10:22] VITALS: BMI 41.6
--- NOTE | 2020-10-12 10:50 | BOWEL_PTH ---
PATIENT: Ariella Restrepo LOC: [facility] U#:[id number] AGE/SX: 75/F ROOM: RE10/12/[address]: Ruchi Fisher MD : 1945 BED: DIS: 10/12/2020 SPEC #: [id number] RECD: 10/12/20 12:45 STATUS: MALIKA MCKEON #: [id number] ROBERTO CARLOS: 10/12/20 10:[address]: Ruchi Fisher DEPT: Surgical Specimen RECD BY: Tea Guillen ENTERED: 10/12/20 12:47 SP TYPE: Bowel OTHR DR: Karen Tobias MD Tissues: 1 - BIOPSY BOWEL 2 - SOFT TISSUE MISC (INC. LIPOMA) 3 - BIOPSY BOWEL Procedures: GROSS AND MICRO LEVEL 4 GROSS AND MICRO LEVEL 3 Comments: [id number]
[2020-10-12 11:13] VITALS: BP 117/66; PULSE 62; RESP 18; TEMP 36.1; O2SAT 95
--- NOTE | 2020-10-12 11:15 | W.ANESPOSTOP ---
Postoperative Evaluation Date, Time and Location Date Performed: 10/12/20 Time Performed: 11:15 Patient Location: Day Surgery Unit Vital Signs Most Recent Imported Vital Signs: Most Recent Vital Signs Temp Pulse Resp BP Pulse Ox 36.3 C L 73 18 160/73 H 95 10/12/20 10:05 10/12/20 10:05 10/12/20 10:05 10/12/20 10:05 10/12/20 10:05 Most Recent Manually Entered Vital Signs: Adult Blood Pressure: 117/66 Heart Rate: 62 Respirations: 18 Oxygen Saturation (%): 95 Temperature (C): 36.1 C Pain Score (0-10 Scale): 0 Pain Score Most Recent Pain Score: Most Recent Pain Score Pain Level 0 10/12/20 10:05 Assessment Mental Status: Arousable with meaningful communication Airway and Respiratory Function: Patent airway with normal (patient baseline) respiratory exam Cardiovascular Function: Hemodynamically Stable Hydration Status: Adequately Hydrated Nausea & Vomiting: No Nausea or Vomiting Pain: Pt. Denies Any Pain Peripheral Nerve Block: Patient did not receive a nerve block
[2020-10-12 11:16] VITALS: BP 117/66; PULSE 62; RESP 18; TEMPC 36.1; O2SAT 95
[2020-10-12 11:35] VITALS: BP 142/68; PULSE 60; RESP 18; TEMP 36.4; O2SAT 96
== END 2020-10-12 12:24 | disposition home or self-care (01) ==
LOC: SUR 09:27
PROVIDERS: PCP Family Medicine; Visit Provider Surgery
PROC: 0DJD8ZZ Inspection of Lower Intestinal Tract, Via Natural or Artificial Opening Endoscopic (ICD-10-PCS; CPT 45378; principal; 2020-10-12 11:00)
DX: Z12.11 Encounter for screening for malignant neoplasm of colon (principal); Z86.010 Personal history of colon polyps; D12.0 Benign neoplasm of cecum; K57.30 Diverticulosis of large intestine without perforation or abscess without bleeding; D17.5 Benign lipomatous neoplasm of intra-abdominal organs
CPT/HCPCS: 45380; 88305; 88304; J2001

== ENCOUNTER 2020-11-26 13:54 | Emergency (ER) | payer OTHER, SELFPAY ==
[2020-11-26 14:00] VITALS: BP 189/55; PULSE 83; TEMP 36.7; O2SAT 96
--- NOTE | 2020-11-26 14:15 | DI.CT_ITS ---
Exam(s) CT HEAD WO EXAM: CT HEAD WO CLINICAL HISTORY: fall, struck posterior head. TECHNIQUE: Imaging Protocol: Axial computed tomography images with coronal and sagittal reformatted images were created and reviewed COMPARISON: No exams were available for comparison FINDINGS: There are no skull fractures nor fluid in the visualized paranasal sinuses. Mild mucosal thickening is noted in left sphenoid sinus. There is no evidence of intracranial hemorrhage, mass effect, or shift of midline structures. There are no extra-axial fluid collections. The ventricles are not enlarged or shifted and there is no blo od within the ventricular system nor within the basal cisterns. IMPRESSION: No acute intracranial findings on this noninfused CT scan of the brain. No evidence of intracranial hemorrhage, intra or extra-axial, given the trauma history here. RADIATION DOSE DELIVERED: 666.3mGy.cm Total DLP DATA REPOSITORY: All CT scans at this facility are submitted to the National Radiology Data Registry (NRDR) Dose Index Registry (DIR) with the [employer] (A[employer]). RADIATION OPTIMIZATION: All CT scans at this facility use at least one of these dose optimization te chniques: automated exposure control; mA and/or kV adjustment per patient size (includes targeted exa ms where dose is matched to clinical indication); or iterative reconstruction.
--- NOTE | 2020-11-26 14:25 | W.ED.GENAD ---
Discharge Plan Disposition Patient Disposition: HOME Condition: Stable Discharge Details Clinical Impression: Laceration of scalp, Head injury Primary Care Provider: Karen Tobias ED Provider: Debbie Herrera Home Meds and New Rx's Prescriptions: Continued lisinopril 40 mg tablet 40 mg PO DAILY Qty: 90 RF: 4 sertraline 50 mg tablet 50 mg PO DAILY Qty: 90 RF: 4 pantoprazole [Protonix] 40 mg tablet,delayed release (DR/EC) 40 mg PO DAILY Qty: 90 RF: 2 ketoconazole 2 % cream 1 applic TP BID Qty: 60 RF: 3 amlodipine 10 mg tablet 10 mg PO DAILY Qty: 30 RF: 0 atorvastatin 40 mg tablet 10 mg PO DAILY RF: 0 Discharge Instructions Instructions: Laceration (ED), Head Injury (ED) Additional Instructions: There is no evidence at this time for bleeding inside of your head in imaging. Your laceration was closed with candie. Keep wound clean, dry, covered. Tylenol as needed for discomfort. Please monitor wound for signs infection including redness, warmth, drainage, increased pain, fever/chills. If you develop these or the new/worsening symptoms please seek care urgently once again. Please return in 1 week for suture removal. Referrals: Karen Tobias MD [Primary Care Provider] - Discharge Data Discharge Date/Time-TO BE ENTERED AT DEPARTURE: 11/26/20 16:21 Medical Decision Making Patient is a pleasant 75 year old female, brought in by , with c/c of head injury and scalp laceration. She states that she tripped while vacuuming and fell backward striking her head against the fireplace. Denies LOC. States that she is having pain over area that struck and area of laceration bu tno real headache. Denies visual changes. No N/V. Denies weakness, sensoary changes. Patient is not anticoagulated. On exam, patient appears nontoxic. She has 1.5cm laceration posterior scalp with associated swelling. No palpable skull fracture. C-spine without tenderness, full ROM. Patient has minimal bleeding. Discussed closure options. we discussed risks/benefits as well as expected procedural steps of closure iwith candie. Patient voices understanding and wishes to proceed. Mechanism and age also has me concerned for possible ICH. Will obtain CT head. Please see procedure note. Patient tolerated this well. Wound was anesthetized with lido with epi. Sufficient anesthesia was obtained. Wound was irrigated, explored to base in a bloodless field with no FB or debris noted. Closed with one staple. Patient tolerated this well. Wound care discussed in depth. Imaging reviewed by radiologist: FINDINGS: Brain: There is hypoattenuation in the supratentorial white matter, likely sequela of chronic small vessel ischemic disease. No acute intracranial hemorrhage, midline shift or mass effect. No CT evidence of acute territorial infarction. Cerebral ventricles: No ventriculomegaly. Paranasal sinuses: Visualized sinuses are unremarkable. No fluid levels. Mastoid air cells: Visualized mastoid air cells are well aerated. Bones/joints: Unremarkable. No acute fracture. Soft tissues: Small right occipital scalp hematoma noted. Skin staple in place. IMPRESSION: 1. Hypoattenuation in the supratentorial white matter, likely sequela of chronic small vessel ischemic disease. 2. No acute intracranial abnormality. Discussed these findings with the patient. She has had improvement of her pain with ice and tylenol. Return precautions discussed. Wound care discussed. She will return in one week for reevaluation and staple removal. All of her questions and concerns were addressed, she is in agreement with this plan. [facility] General Mode of arrival: ambulatory. Date/Time Provider Initiated Documentation: 11/26/20 13:59. Limitations to Documentation: no limitations. Information obtained by: patient, family (hsuband) and RN notes reviewed. History of Present Illness 75 year old F presents to the emergency department with the chief complaint of scalp laceration, described as severe, with intensity rated at 8. Quality is described as aching, and is localized to the head. Patient reports no radiation. Patient started experiencing this minute(s) and it has been constant. No relieving factors improve symptom(s), No exacerbating factors reported . Patient notes headaches (over area of contusion); denies confusion, chest pain, fever/chills, nausea/vomiting, shortness of breath, syncope and weakness. Patient did receive the following treatments prior to arrival, none Related Data Home Medications Medication Instructions Recorded Confirmed lisinopril 40 mg tablet 40 mg PO DAILY #90 tab-cap 09/02/20 11/26/20 pantoprazole 40 mg tablet,delayed 40 mg PO DAILY #90 tab-cap 09/02/20 11/26/20 release sertraline 50 mg tablet 50 mg PO DAILY #90 tab-cap 09/02/20 11/26/20 ketoconazole 2 % topical cream 1 applic TP BID #60 gm 09/13/20 11/26/20 amlodipine 10 mg tablet 10 mg PO DAILY #30 tab 11/03/20 11/26/20 atorvastatin 10 mg PO DAILY 11/26/20 11/26/20 Previous Rx's Medication Instructions Recorded lisinopril 40 mg tablet 40 mg PO DAILY #90 tab-cap 09/02/20 pantoprazole 40 mg tablet,delayed 40 mg PO DAILY #90 tab-cap 09/02/20 release sertraline 50 mg tablet 50 mg PO DAILY #90 tab-cap 09/02/20 ketoconazole 2 % topical cream 1 applic TP BID #60 gm 09/13/20 amlodipine 10 mg tablet 10 mg PO DAILY #30 tab 11/03/20 Allergies Allergy/AdvReac Type Severity Reaction Status Date / Time Metronidazole HCl AdvReac Severe stomach Verified 11/26/20 14:04 [From Flagyl] upset amoxicillin [Amoxicillin] AdvReac Intermediate GI UPSET Verified 11/26/20 14:04 clavulanic acid AdvReac Intermediate GI UPSET Verified 11/26/20 14:04 erythromycin base AdvReac Intermediate Nausea Verified 11/26/20 14:04 [Erythromycin Base] meloxicam AdvReac Intermediate Nausea Verified 11/26/20 14:04 Sulfa (Sulfonamide AdvReac Intermediate NAUSEA AND Verified 11/26/20 14:04 Antibiotics) VOMITING General Stated Complaint: HeadInjury STEFANIA: 3 Review of Systems Constitutional Constitutional: Reports as per HPI, Denies chills, Denies fever(s), Denies frequent falls, Reports headache(s) and Denies weakness Eyes Eyes: Reports as per HPI, Denies blurry vision, Denies change in vision and Denies photophobia ENT Ears, Nose, Mouth, and Throat: Denies vertigo, Reports headache(s) and Denies neck pain Cardiovascular Cardiovascular: Reports as per HPI, Denies chest pain, Denies lightheadedness, Denies radiating jaw, neck or arm pain, Denies dyspnea and Denies dyspnea on exertion Respiratory Respiratory: Reports as per HPI, Denies chest congestion, Denies cough, Denies dyspnea, Denies dyspnea on exertion, Denies stridor and Denies wheezing Gastrointestinal Gastrointestinal: Reports as per HPI, Denies nausea and Denies vomiting Musculoskeletal Musculoskeletal: Reports as per HPI, Denies back pain, Denies myalgias, Denies muscle cramps, Denies neck pain and Denies numbness Integumentary/Breasts Skin/Breast: Reports as per HPI and Reports wounds Neurologic Neurologic: Reports as per HPI, Denies abnormal movements, Denies abnormal speech, Denies behavioral changes, Denies confusion, Denies vertigo, Denies frequent falls, Reports headache(s), Denies localized weakness, Denies numbness, Denies sensory deficit and Denies weakness Psychiatric Psychiatric: Denies behavioral changes and Denies confusion Allergic/Immunologic Allergic/Immunologic: Denies wheezing [facility] Medical History (Updated 11/26/20 @ 15:53 by SINDHU Posey) Acute gouty arthritis (05/14/17) Benign essential hypertension COPD (chronic obstructive pulmonary disease) Diverticulosis of colon without diverticulitis Fracture of right distal radius (05/30/20) GERD (gastroesophageal reflux disease) Heart murmur Hypercholesterolemia Non-alcoholic fatty liver disease Osteoarthritis of knee Polyp of colon 07/2010; 12/03/12 : multiple polyps including tubular adenomas and pandiverticulosis. 2016:sessile serrated adenoma/ Surgical History Abdominal hysterectomy fibroids Bilateral salpingectomy with oophorectomy Cervical Procedure (~1983) 1983; cryotherapy and bx Colonoscopy - IV Sedation (12/03/12) Colonoscopy - MAC (04/20/16) Dilation and curettage (~1994) for benign reasons. Had superficial wound dehiscence. History of colonoscopy (~10/2020) Hx of breast biopsy Left Social History Smoking/Tobacco Use Status: Former Tobacco Use Quit Date: 06/13/12 Pack-years: 25 Smoking risk assessment performed?: Yes Alcohol Intake: current Alcohol Intake frequency: a few times a month Alcohol type: beer, wine and hard liquor Drug use: Never Substance use type: does not use Details: alcohol: t-7 Adopted: Yes Duration: 15-30 minutes/day Frequency: 3-4 times per week Seatbelt use: always Do you feel safe at home: Yes Do you feel safe in your relationship?: Yes Exam Const General: cooperative, healthy appearing, comfortable, no acute distress, well developed and well groomed Nutritional Appearance: well nourished and overweight Orientation: alert, awake and oriented x3 [facility] Head: no palpable skull fracture, no Meyer's sign, contusion (posterior scalp), laceration, no occipital foramen tenderness, no palpable skull fracture and no raccoon eyes Head images: 1. area of swelling. Clintt has 1.5cm linear laceration into the subQ tissue. Deep structures intact. No active bleeding. Surrounding tissue is swollen and bruised. Ears: hearing grossly normal bilaterally, external ears normal and TM's normal bilaterally General nose exam: external nose normal Mouth: oral mucosae normal and moist mucous membranes Throat: posterior oropharynx normal Eyes General: appearance normal, both eyes and all related structures Alignment and Position: alignment normal Periorbital: periorbital findings normal Eyelids: eyelids normal Sclera: sclerae normal Cornea: corneas normal Pupils: PERRL EOM: EOM intact bilaterally Neck Neck: normal visual inspection and full ROM Resp Effort & Inspection: normal respiratory effort, able to speak in complete sentences and no respiratory distress Auscultation: clear to auscultation bilaterally, no rales, no rhonchi and no wheezes Cardio Rate: regular rate Rhythm: regular rhythm Heart Sounds: S1 normal and S2 normal Back/Spine/Pelvis Cervical Spine: normal cervical lordosis, cervical ROM normal, No cervical muscular tenderness, No pain with cervical ROM, No cervical spinal tenderness and No step off deformity Skin Trauma: laceration Neuro General: patient alert, patient awake and patient oriented x3 Cranial Nerves: CN's II-XI intact bilaterally Cognition: normal cognition Speech: speech normal Gait: normal gait Motor: muscle tone normal throughout, strength 5/5 throughout, no pronator drift, no movement abnormalities noted and no fasciculations Sensory Exam: no sensory deficits noted Coordination: [id number] test normal and [id number] test normal Extrem General: normal to inspection and capillary refill normal Psych Appearance: grossly normal and well kempt Mental Status: mental status grossly normal Speech and Movement: speech and movement normal Course Vital Signs Vital signs: Vital Signs Temperature 36.7 C 11/26/20 14:00 Pulse 83 11/26/20 14:00 Blood Pressure 189/55 H 11/26/20 14:00 Pulse Oximetry 96 11/26/20 14:00 Temperature 36.7 C 11/26/20 14:00 Temperature Source Temporal Artery Scan 11/26/20 14:00 Pulse 83 11/26/20 14:00 Respiratory Effort Non-Labored 11/26/20 14:05 Blood Pressure 189/55 H 11/26/20 14:00 Blood Pressure Position Sitting 11/26/20 14:00 Pulse Oximetry 96 11/26/20 14:00 Oxygen Delivery Method Room Air 11/26/20 14:00 Oxygen Flow Rate 0 11/26/20 14:00 Pain Level 8 11/26/20 14:00 Procedures Laceration Laceration 1: Site: scalp Size (cm): 1.5 Description: linear Depth: simple, single layer Local Anesthetic: Lidocaine 1% and with Epi Amount of anesthesia used (mL): 3 Pre-repair: wound explored, irrigated extensively and deep structures intact Skin layer closed with: other (candie) Number of sutures: 1
--- NOTE | 2020-11-26 15:43 | DI.VRAD_ITS ---
PROCEDURE INFORMATION: Exam: CT Head Without Contrast Exam date and time: 11/26/2020 2:22 PM Age: 75 years old Clinical indication: Injury or trauma; Fall; Abrasion; Head, generalized TECHNIQUE: Imaging protocol: Computed tomography of the head without contrast. Total images: 965 COMPARISON: No relevant prior studies available. FINDINGS: Brain: There is hypoattenuation in the supratentorial white matter, likely sequela of chronic small vessel ischemic disease. No acute intracranial hemorrhage, midline shift or mass effect. No CT evidence of acute territorial infarction. Cerebral ventricles: No ventriculomegaly. Paranasal sinuses: Visualized sinuses are unremarkable. No fluid levels. Mastoid air cells: Visualized mastoid air cells are well aerated. Bones/joints: Unremarkable. No acute fracture. Soft tissues: Small right occipital scalp hematoma noted. Skin staple in place. IMPRESSION: 1. Hypoattenuation in the supratentorial white matter, likely sequela of chronic small vessel ischemic disease. 2. No acute intracranial abnormality. Dictated and Authenticated by: Blanca Chan MD. Ordering:MELODIE Lewis MD
[2020-11-26] MEDS: Acetaminophen 325 MG TAB 650 MG PO (15:55)
[2020-11-26 16:20] VITALS: BP 173/48; PULSE 78; RESP 16; TEMP 36.5; O2SAT 95
== END 2020-11-26 16:21 | disposition home or self-care (01) ==
PROVIDERS: Emergency Provider Physician Assistant; PCP Family Medicine
DX: S01.01XA Laceration without foreign body of scalp, initial encounter (principal); S09.90XA Unspecified injury of head, initial encounter; W01.198A Fall on same level from slipping, tripping and stumbling with subsequent striking against other object, initial encounter
CPT/HCPCS: 12001; 90471; 99281; 70450

== ENCOUNTER 2021-01-23 14:21 | Outpatient (REF) | payer OTHER, SELFPAY ==
[2021-01-24 02:18] LABS: COVID-19 RT-PCR UVMMC Result Negative (Negative)
== END 2021-01-23 14:22 | disposition home or self-care (01) ==
LOC: LBN 14:21
PROVIDERS: PCP Family Medicine; Visit Provider Family Medicine
DX: Z20.822 Contact with and (suspected) exposure to COVID-19 (principal)
CPT/HCPCS: U0003

== ENCOUNTER 2021-02-02 00:37 | Outpatient (CLI) | payer OTHER, SELFPAY ==
--- NOTE | 2021-02-02 06:45 | DI.RAD_ITS ---
Exam(s) XR CHEST 2V PA LATERAL EXAM: XR CHEST 2V PA LATERAL CLINICAL HISTORY: exertional dyspnea,EX SMOKER,R06.00. TECHNIQUE: 2D digital imaging was performed. COMPARISON: CR XR CHEST 2V PA LATERAL from 02/05/2018 FINDINGS: Heart size is mildly enlarged. Mediastinum not widened. Lungs are clear. No infiltrates nor pleural effusions. No pulmonary edema. IMPRESSION: No acute pulmonary findings.Mild cardiomegaly again noted. No pulmonary edema. No pleural effusions . DATA REPOSITORY: RADIATION DOSE DELIVERED:
--- NOTE | 2021-02-02 06:45 | DI.NM_ITS ---
APPROVED REPORT Exam: Pharmacologic Patient Location: Out-Patient Room/Bed: Stress Nurse: Anamika Rose RN Ordering Provider:JAMES MARMOLEJO, Contact Number: [phone] BMI: 40.43 Baseline Rhythm: Sinus Rhythm Indications: Exertional dyspnea Medical History Medical History: Hypertension, hyperlipidemia, pre-diabetes, smoker (current), asthma, COPD, obesity, gerd, non-etoh fatty liver disease, osetoarthritis, depression, hx heart murmur Cardiac Medications: Lisinopril, hydrochlorothiazide, sertraline, pantoprazole Allergies: Metronidazole, amoxicillin, clavulanic acid, erythromycin, meloxicam, sulf abx Cardiac Risk Factors: Hypertension, hyperlipidemia, pre-diabetes, smoker (current), asthma, COPD, obe sity, family hx Previous Cardiac Procedures: None Pretest Chest Pain Characteristics: None Exercise History: Sedentary Physical Disabilities: None Lung Sounds: Clear to auscultation Heart Sounds: Regular Stress Test Details Test: Pharmacologic stress was paired with low level exercise. Reason for pharmacologic stress test: physical limitation. Rest Isotope: Tc-99m Sestamibi. Dose: 11.5 Date: 02/02/2021 Injection Time: 0900 Stress Isotope: Tc-99m Sestamibi. Dose: 37.0 Date: 02/02/2021 Injection Time: 1030 HR Resting HR Supine: 60 bpm Max Heart Rate (APMHR): 145.430353 bpm Resting HR Standin bpm Target HR (85% APMHR): 123.344987 bpm Max HR Achieved: 118 bpm % of APMHR: 81.38 Recovery HR: 75 bpm HR response to stress: Normal HR response to stress BP Resting BP Supine: 188/74 mmHg Resting BP Standin/78 mmHg Max BP: 188/74 mmHg Recovery BP: 172/78 mmHg BP response to stress: Normal blood pressure response to stress. ECG Resting ECG: Sinus Rhythm Ectopy: Rare PAC Stress ECG: Sinus Tachycardia ST Change: Horizontal ST depression, Downsloping ST depression Lead(s): II, III, aVF, V6 Maximum ST Deviation: 1 mm Arrhythmia: None Comment: ST depression occurred 90 seconds after Lexiscan injection Recovery ECG: Sinus Rhythm Recovery ST Change: Horizontal ST depression Lead(s): II, III, aVF, V6 Recovery ST Deviation: 0.5 mm Recovery Arrhythmia: Rare PAC Clinical Stress Symptoms: General Fatigue, Dyspnea, Chest tightness Exercise capacity: 2.00 METs Rate Pressure Product: 74630 Stress ECG Conclusion 1. Resting electrocardiogram showed left ventricular hypertrophy 2. Patient underwent stress with both exercise and regadenoson. Peak heart rate achieved was 81% of predicted for age 3. Electrocardiographically the test was consistent with myocardial ischemia with 1.5 [address] d epression noted in the inferior and anterolateral leads 4. There were no significant dysrhythmias Stress Test Summary STAGE HR BP Symptoms NOTES Supine 60 188/74 1 min post Lexiscan injection 66 180/78 moderate SOB SpO2 95% 3 min post Lexiscan injection 117 184/80 chest tightness 6/10 SpO2 93% 6 min post Lexiscan injection 108 180/76 mild SOB, symptoms resolving SpO2 94% 9 min post Lexiscan injection 86 172/78 SpO2 94% 12 min post Lexiscan injection 75 symptoms resolved SpO2 96% Pt ambulated on treadmill for walking Lexiscan test at 1.3mph and 0% grade for 4 minutes. MPI Conclusion Normal myocardial perfusion without evidence of ischemia or prior infarction EF is 73% Radiologist Interpretation Radiologist Interpretation by: Jose Cardona MD Interpretation Date/Time: 02/03/2021 18:55:24
[2021-02-02] MEDS: Regadenoson 0.4 MG/5 ML SYR IVP (10:20)
== END 2021-02-02 00:57 ==
PROVIDERS: PCP Family Medicine; Visit Provider Family Medicine
DX: R06.09 Other forms of dyspnea (principal); F17.210 Nicotine dependence, cigarettes, uncomplicated; I51.7 Cardiomegaly; Z82.49 Family history of ischemic heart disease and other diseases of the circulatory system; J44.9 Chronic obstructive pulmonary disease, unspecified; E66.9 Obesity, unspecified; I10 Essential (primary) hypertension; E78.5 Hyperlipidemia, unspecified; R73.03 Prediabetes; I25.5 Ischemic cardiomyopathy
CPT/HCPCS: 78452; 93016; 93018; 71046; 93017; J2785

== ENCOUNTER 2021-03-01 12:05 | Outpatient (REF) | payer MEDICARE, SELFPAY ==
[2021-03-03 10:51] LABS: COVID-19 RT-PCR UVMMC Result Negative (Negative)
== END 2021-03-01 12:06 | disposition home or self-care (01) ==
LOC: LBN 12:05
PROVIDERS: PCP Family Medicine; Visit Provider Family Medicine
DX: Z20.822 Contact with and (suspected) exposure to COVID-19 (principal)
CPT/HCPCS: U0003

== ENCOUNTER 2021-03-07 00:21 | Outpatient (CLI) | payer MEDICARE, SELFPAY ==
[2021-03-07 10:35] LABS: Abs Immature Grans 0.01 10^3/uL (0.0-0.06); Absolute Basophil Count 0.05 10^3/uL (0.0-0.2); Absolute Eosinophil Count 0.13 10^3/uL (0.0-0.7); Absolute Lymphocyte Count 0.72 10^3/uL (1.2-3.4); Basophils % 1.4; Eosinophils % 3.6; HCT 32.8 % (36.0-46.0); HGB 9.6 g/dL (11.2-15.7); Immature Grans % 0.3; Lymphocytes % 19.9; MCH 24.5 pg (27.0-33.0); MCHC 29.3 % (32.0-36.0); MCV 83.7 fL (80-95); MPV 11.8 fL (8.0-11.0); Monocytes % 8.3; Neutrophils % 66.5; Nucleated RBC 0 %; Platelet Count 103 10^3/uL (130-400); RBC 3.92 10^6/uL (3.93-5.22); RDW 17.1 % (11.7-14.6); RDW-SD 52.1 fL; WBC 3.61 10^3/uL (4.4-10.8)
[2021-03-07 10:54] LABS: Hemoglobin A1C 5.8 % (<5.7)
[2021-03-07 10:59] LABS: ALT 47 U/L (14-59); AST 38 U/L (15-37); Albumin 3.9 g/dL (3.4-5.0); Alkaline Phosphatase 125 U/L (46-116); Anion Gap 9.4 mmol/L (3-11); BUN 15 mg/dL (7-18); CO2 28.6 mmol/L (21.0-32.0); Calcium 9.1 mg/dL (8.5-10.1); Calculated LDL 101 mg/dL (<100); Chloride 103 mmol/L (98-107); Cholesterol 165 mg/dL (<200); Estimated GFR 54.05 (mL/min/1.73m2); Ferritin 13 ng/mL (8-252); Glucose 144 mg/dL (74-106); HDL Cholesterol 37 mg/dL (40-60); Potassium 4.2 mmol/L (3.5-5.1); Sodium 141 mmol/L (136-145); Total Protein 7.7 g/dL (6.4-8.2); Triglyceride 135 mg/dL (<150)
--- NOTE | 2021-03-07 11:14 | DI.CT_ITS ---
Exam(s) CT CHEST W EXAM: CT CHEST W CLINICAL HISTORY: R06.00,EXERTIONAL DYSPNEA,EX SMOKER,NEG CARDIAC TECHNIQUE: Imaging Protocol: Axial computed tomography images with coronal and sagittal reformatted images were created and reviewed CONTRAST MATERIAL: Intravenous: Omnipaque 350 Contrast volume:85ml. COMPARISON: CT RENAL COLIC WO CONTRAST from 11/14/2008 CT RENAL COLIC WO CONTRAST from 11/14/2008 CT ABD PELVIS WITH CONTRAST from 07/03/2010 CT ABD PELVIS WITH CONTRAST from 07/03/2010 CT ABD PELVIS WITH CONTRAST from 09/04/2012 CT ABD PELVIS WITH CONTRAST from 09/04/2012 CT ABD PELVIS WITH CONTRAST from 11/24/2012 CT ABD PELVIS WITH CONTRAST from 11/24/2012 CT RENAL COLIC WO CONTRAST from 11/24/2016 CT RENAL COLIC WO CONTRAST from 11/24/2016 CR XR CHEST 2V PA LATERAL from 02/02/2021 FINDINGS: Tracheobronchial tree: No bronchiectasis or mucous plugging. Mediastinum and Jyothi: No dominant adenopathy or fluid collection. Pulmonary parenchyma: 9 x 9 x 10 millimeter small circumscribed nodule left costophrenic angle, incre ased in size from 6 millimeters on the 2017 exam. 5 millimeter nodule left lower lobe. Other nodule s measuring 3 millimeters left lower lobe. 3 x 4 millimeter nodule right middle lobe. 3 millimeter nodule medial right upper lobe. Other tiny scattered nodules. No consolidation. Linear scarring or atelectasis left lung base. Mild emphysematous changes greatest left upper lobe. No significant in terstitial changes. Pleura: No effusion or pneumothorax. Heart: The heart is mildly dilated, left atrium and left ventricle.. Mild coronary artery calcificat ions are seen. Aorta: Thoracic aorta non-dilated. Moderate calcification. Upper abdomen: Enlarged liver, hepatic steatosis. Nodular contour Lymph nodes: Within normal limits. Bones: Degenerative changes in the thoracic spine. No compression fractures. IMPRESSION: 1. 9 x 10 millimeter circumscribed nodule left lingula, at the costophrenic angle, increased in size from 2017. Multiple other tiny nodules are seen. PET-CT could be considered for further evaluation. 2. Enlarged nodular liver could indicate cirrhosis. RADIATION DOSE DELIVERED: 692.66mGy.cm Total DLP DATA REPOSITORY: All CT scans at this facility are submitted to the National Radiology Data Registry (NRDR) Dose Index Registry (DIR) with the [employer] ([employer]). RADIATION OPTIMIZATION: All CT scans at this facility use at least one of these dose optimization te chniques: automated exposure control; mA and/or kV adjustment per patient size (includes targeted exa ms where dose is matched to clinical indication); or iterative reconstruction.
[2021-03-07] MEDS: Normal Saline - Diluent 50 ML VIAL IV (11:15)
[2021-03-07] MEDS: Omnipaque 350 MG/ML 100 ML BTL IJ (11:15)
== END 2021-03-07 00:41 ==
PROVIDERS: PCP Family Medicine; Visit Provider Family Medicine
DX: R06.09 Other forms of dyspnea (principal); R91.1 Solitary pulmonary nodule; J98.4 Other disorders of lung; R16.0 Hepatomegaly, not elsewhere classified; K76.89 Other specified diseases of liver; R74.8 Abnormal levels of other serum enzymes
CPT/HCPCS: 80053; 80061; 71260; 82728; 83036; 83915; 85025; J3490

== ENCOUNTER 2021-07-11 01:21 | Outpatient (CLI) | payer MEDICARE, SELFPAY ==
--- NOTE | 2021-07-11 09:25 | DI.CT_ITS ---
Exam(s) CT CHEST HIGH RESOLUTION EXAM: CT CHEST HIGH RESOLUTION CLINICAL HISTORY: f/u lung nodules,r91.8. TECHNIQUE: Imaging protocol: Axial computed tomography images were obtained and coronal and sagittal reformatted images were created and reviewed. COMPARISON: CT CT CHEST W from 03/07/2021 FINDINGS: Tracheobronchial tree: Patent where visualized. Pulmonary parenchyma: There is a stable 4 mm nodule in the right middle lobe. There are 2 stable 2 m m nodules in the right lower lobe. There is a stable 1 cm nodule in the left costophrenic angle. Th ere is a stable 2 mm nodule in the left lingula. The left lower lobe pulmonary nodules are stable. No new pulmonary nodules are present. There is scarring or atelectasis in the lung bases. No focal consolidating infiltrates are seen. No bronchiectasis is present. Mild interstitial disease is seen in the lung bases, right greater than left. Mediastinum and Jyothi: Stable mildly prominent mediastinal lymph nodes. The esophagus is unremarkable . Thyroid gland: Unremarkable. Pleura: No effusion or pneumothorax. Heart: Mild cardiomegaly. Coronary artery calcifications are present. No pericardial effusion. Aorta: Thoracic aorta non-dilated. Atherosclerosis. Upper abdomen: There is a nodular contour of the liver suggesting hepatic cirrhosis. The spleen jennifer ears enlarged. There is diffuse decreased attenuation of the liver consistent with fatty infiltratio n. Lymph nodes: No axillary adenopathy. Soft tissues: Unremarkable. Bones:Within normal limits for the patient's age. IMPRESSION: 1. Stable pulmonary nodules. No new pulmonary nodules. 2. A follow-up CT scan in 12-18 months is recommended dependent upon the estimated risk of the patien t. (Jimmy et al, 2017). RADIATION DOSE DELIVERED: 857.99mGy.cm Total DLP 857.99mGy.cm Total DLP DATA REPOSITORY: All CT scans at this facility are submitted to the National Radiology Data Registry (NRDR) Dose Index Registry (DIR) with the [employer] ([employer]). RADIATION OPTIMIZATION: All CT scans at this facility use at least one of these dose optimization te chniques: automated exposure control; mA and/or kV adjustment per patient size (includes targeted exa ms where dose is matched to clinical indication); or iterative reconstruction.
== END 2021-07-11 01:41 ==
PROVIDERS: PCP Family Medicine; Visit Provider Family Medicine
DX: R91.8 Other nonspecific abnormal finding of lung field (principal); J98.4 Other disorders of lung; K76.89 Other specified diseases of liver; R16.1 Splenomegaly, not elsewhere classified; K76.0 Fatty (change of) liver, not elsewhere classified
CPT/HCPCS: 71250

== ENCOUNTER → 2021-11-16 08:01 | Outpatient (CLI) | payer MEDICARE, SELFPAY ==
--- NOTE | 2021-11-16 08:30 | DI.US_ITS ---
Exam(s) US LOWER EXTREMITY VENOUS RT EXAM: US LOWER EXTREMITY VENOUS RT CLINICAL HISTORY: r/o DVT,PHLEBITIS, RT LEG SWELLING, M79.89,I80.3 TECHNIQUE: Grayscale, color, and doppler imaging of the deep venous system of the right lower extrem ity was performed. COMPARISON: US US ECHOCARDIOGRAM from 09/15/2020 FINDINGS: There is no evidence of intraluminal thrombus and there is normal compression and augmentation demons trated within the common femoral vein, femoral vein, and popliteal vein. In the ipsilateral calf the interrogated veins also exhibit normal compression/ augmentation properti es. The ipsilateral saphenofemoral junction is patent. IMPRESSION: 1. No evidence of DVT in the right lower extremity. DATA REPOSITORY:
== END ==
PROVIDERS: PCP Family Medicine; Visit Provider Family Medicine
DX: I80.3 Phlebitis and thrombophlebitis of lower extremities, unspecified (principal)
CPT/HCPCS: 93971

== ENCOUNTER 2022-01-22 14:09 | Outpatient (REF) | payer MEDICARE, SELFPAY | END 2022-01-22 14:10 | disposition home or self-care (01) | LOC: LBN 14:09 | PROVIDERS: PCP Family Medicine; Visit Provider Physician Assistant | DX: N39.0 Urinary tract infection, site not specified (principal) | CPT/HCPCS: 87086 ==

== ENCOUNTER 2022-02-13 06:37 | Emergency (ER) | payer MEDICARE, SELFPAY ==
[2022-02-13] VITALS (36 sets, daily range): BP systolic 103–184; BP diastolic 42–104; PULSE 58–89; RESP 12–30; TEMP 36.7; O2SAT 95
--- NOTE | 2022-02-13 06:15 | RT.EKG_ITS ---
APPROVED REPORT Exam: Resting ECG Reason for Exam: pain with inspiration Patient Location: E HR:61 bpm ECG Measurements Heart Rate 61 AXIS AL 183 P 48 QRSd 88 QRS -6 QT 400 T 97 QTc 402 Conclusion Sinus rhythm...normal P axis, V-rate 60- 99 LVH with secondary repolarization abnormality...multi-LVH criteria, abnrm ST-T I have reviewed and interpreted ECG and agree with software generated interpretation.
--- NOTE | 2022-02-13 06:37 | W.ED.GENAD ---
Discharge Plan Disposition Patient Disposition: STILL A PATIENT Condition: Stable Discharge Details Chief Complaint: RespSymp Clinical Impression: Chest pain Primary Care Provider: Colleen Vargas ED Provider: Jose Verma [facility] and New Rx's Prescriptions: No Action Spiriva Respimat 2.5 mcg/actuation mist 2 puff inhalation DAILY Qty: 4 2RF albuterol sulfate [ProAir HFA] 90 mcg/actuation HFA aerosol inhaler 2 puff inhalation Q6H PRN (Reason: shortness of breath or wheezing) Qty: 8.5 0RF phenazopyridine [Pyridium] 200 mg tablet 200 mg PO TID PRN (Reason: pain) Qty: 6 0RF doxycycline hyclate 100 mg capsule 100 mg PO BID Qty: 14 0RF benzonatate 100 mg capsule 100 mg PO TID PRN (Reason: cough) Qty: 14 0RF ferrous sulfate 325 mg (65 mg iron) tablet 325 mg PO BID Qty: 90 1RF lisinopril 40 mg tablet 40 mg PO DAILY Qty: 90 4RF pantoprazole [Protonix] 40 mg tablet,delayed release (DR/EC) 40 mg PO DAILY Qty: 90 2RF sertraline 50 mg tablet 50 mg PO DAILY Qty: 90 4RF hydrochlorothiazide 12.5 mg tablet 12.5 mg PO DAILY Qty: 90 3RF ketoconazole 2 % cream 1 applic TP BID Qty: 60 1RF atorvastatin 40 mg tablet 10 mg PO DAILY Rx Instructions: 4-28-21 redecreased the dose re:pt not taking the rx before so back to usual rx Medical Decision Making Patient presenting to ED with left-sided chest pain that occurred during coughing and continues though much improved. Patient called EMS and presents to ED for concern of a heart attack. Her EKG is sinus rhythm with nonspecific ST changes but nothing acute. Her episode does not appear to be cardiac in nature and more likely chest wall from coughing. Consider possible pulmonary process but has been on doxycycline for few days now. Do not suspect dissection or PE. Patient's main concern is heart attack and she has been reassured but we will get labs including troponins, chest x-ray. Because of the bronchitic cough and slight wheezing with her history of smoking we will try albuterol neb. Medical Records Medical records reviewed: Yes I reviewed the patient's medical records. ECG Data Attestation: I personally reviewed and interpreted this ECG (s) as follows: Prior ECG tracings: not available for review Interpretation: See EKG HPI General Mode of arrival: EMS. Date/Time Provider Initiated Documentation: 02/13/22 06:44. Limitations to Documentation: no limitations. Information obtained by: patient, EMS, RN notes reviewed and old records reviewed. HPI Narrative: Patient presents to ED with left-sided chest pain that occurred this morning after coughing. She describes the pain as severe and she thought she was having a heart attack. Pain is improved on its own. She has been ill with URI symptoms including cough, congestion, low-grade fevers, malaise for couple of weeks. She was seen at [facility] last week. While the notes do not reflect that she was placed on antibiotic she states after the fact they did put her on doxycycline. She finishes this in a few days. Her symptoms have not really improved nor have they worsened in regards to the URI. Her chest pain is reproducible and pleuritic in nature. She is not short of breath per se but is unable to take a deep breath because of the pain. Pain is much improved at this point and did not radiate anywhere when it occurred. Related Data Home Medications Medication Instructions Recorded Confirmed atorvastatin 40 mg tablet 10 mg PO DAILY 11/26/20 02/05/22 ferrous sulfate 325 mg (65 mg 325 mg PO BID #90 tabs 03/10/21 02/05/22 iron) tablet albuterol sulfate 90 mcg/actuation 2 puff inhalation Q6H PRN 06/21/21 02/05/22 aerosol inhaler (ProAir HFA) shortness of breath or wheezing #8.5 grams tiotropium bromide 2.5 2 puff inhalation DAILY #4 grams 06/21/21 02/05/22 mcg/actuation mist for inhalation (Spiriva Respimat) hydrochlorothiazide 12.5 mg tablet 12.5 mg PO DAILY #90 tabs 06/30/21 02/05/22 lisinopril 40 mg tablet 40 mg PO DAILY #90 tab-caps 06/30/21 02/05/22 pantoprazole 40 mg tablet,delayed 40 mg PO DAILY #90 tab-caps 06/30/21 02/05/22 release (Protonix) sertraline 50 mg tablet 50 mg PO DAILY #90 tab-caps 06/30/21 02/05/22 ketoconazole 2 % topical cream 1 applic topical BID #60 grams 10/02/21 02/05/22 phenazopyridine 200 mg tablet 200 mg PO TID PRN pain 6 doses #6 01/22/22 02/05/22 (Pyridium) tabs benzonatate 100 mg capsule 100 mg PO TID PRN cough #14 caps 02/08/22 02/08/22 doxycycline hyclate 100 mg capsule 100 mg PO BID #14 caps 02/08/22 02/08/22 Previous Rx's Medication Instructions Recorded ferrous sulfate 325 mg (65 mg 325 mg PO BID #90 tabs 03/10/21 iron) tablet albuterol sulfate 90 mcg/actuation 2 puff inhalation Q6H PRN 06/21/21 aerosol inhaler (ProAir HFA) shortness of breath or wheezing #8.5 grams tiotropium bromide 2.5 2 puff inhalation DAILY #4 grams 06/21/21 mcg/actuation mist for inhalation (Spiriva Respimat) hydrochlorothiazide 12.5 mg tablet 12.5 mg PO DAILY #90 tabs 06/30/21 lisinopril 40 mg tablet 40 mg PO DAILY #90 tab-caps 06/30/21 pantoprazole 40 mg tablet,delayed 40 mg PO DAILY #90 tab-caps 06/30/21 release (Protonix) sertraline 50 mg tablet 50 mg PO DAILY #90 tab-caps 06/30/21 ketoconazole 2 % topical cream 1 applic topical BID #60 grams 10/02/21 phenazopyridine 200 mg tablet 200 mg PO TID PRN pain 6 doses #6 01/22/22 (Pyridium) tabs benzonatate 100 mg capsule 100 mg PO TID PRN cough #14 caps 02/08/22 doxycycline hyclate 100 mg capsule 100 mg PO BID #14 caps 02/08/22 Allergies Allergy/AdvReac Type Severity Reaction Status Date / Time Metronidazole HCl AdvReac Severe stomach Verified 02/13/22 06:45 [From Flagyl] upset amoxicillin [Amoxicillin] AdvReac Intermediate GI UPSET Verified 02/13/22 06:45 clavulanic acid AdvReac Intermediate GI UPSET Verified 02/13/22 06:45 erythromycin base AdvReac Intermediate Nausea Verified 02/13/22 06:45 [Erythromycin Base] meloxicam AdvReac Intermediate Nausea Verified 02/13/22 06:45 Sulfa (Sulfonamide AdvReac Intermediate NAUSEA AND Verified 02/13/22 06:45 Antibiotics) VOMITING General STEFANIA: 3 Review of Systems Narrative: 02/23 Review of Systems completed and is negative except as stated above in HPI (Systems reviewed: Const, Eyes, ENT, Resp, CV, GI, , MSK, Skin, Neuro) PFSH All Active Problems (Updated 02/13/22 @ 08:01 by Jose Verma MD) Chest pain (Acute) Phlebitis of right leg (Acute) Prediabetes (Acute) Morbid obesity with BMI of 40.0-44.9, adult (Acute) Exertional dyspnea (Acute) ongoing symptoms, negative cardiopulmonary evaluation at [facility] [place] Pulmonary nodules/lesions, multiple (Acute) ongoing evaluation at [facility] [place] Urinary incontinence (Acute) OAB (overactive bladder) (Acute) Fecal incontinence (Acute) Chronic obstructive lung disease (Acute) PFTs September 2020 with FVC of 1.88 (77% predicted), FEV1 of 1.37 (75% predicted) and FEV1/FVC of 73%, TLC 4.70 (103% predicted), DLCO 76% Depressive disorder (Acute) Essential hypertension (Acute 09/08/13) Hyperlipidemia (Acute 08/12/12) Non-alcoholic fatty liver disease (Acute 12/01/12) +ultrasound 2014/persistent elevated transaminases/neg. Hep.B and Hep.C Fib 4 score of 4.0 Medical History Acute gouty arthritis (05/14/17) Diverticulosis of colon without diverticulitis Fracture of right distal radius (05/30/20) after a fall at home, tripping injury, managed nonoperatively. Generalized osteoarthritis of multiple sites present, but not very bothersome - affects back, hands GERD (gastroesophageal reflux disease) Heart murmur normal echocardiogram History of tobacco abuse quit 2014, smoked 1/2 ppd x 50 yrs Nonobstructive atherosclerosis of coronary artery (~05/2021) 05/15/21: Coronary calcium score 331, consistent with heavy atherosclerotic plaque burden and 80th percentile rank based on age race and gender nonobstructive calcified coronary artery disease. Polyp of colon 07/2010; 12/03/12 : multiple polyps including tubular adenomas and pandiverticulosis. 2016:sessile serrated adenoma/ Tubular adenoma (~10/2020) Surgical History History of colonoscopy (~10/2020) Hx of breast biopsy Left Status post abdominal hysterectomy Social History Smoking/Tobacco Use Status: Former Tobacco Use tobacco type: cigarettes Quit Date: 06/13/12 Pack-years: 25 Second Hand Exposure: Yes Smoking risk assessment performed?: Yes Alcohol Intake: current Alcohol Intake frequency: a few times a month Alcohol type: beer Drug use: Never Substance use type: does not use Details: alcohol: t-7 Adopted: Yes Caregiver/Support person: No Household members: spouse Do you need help understanding health information?: Never Pets and animals: Yes Pets and animals: dog(s) Sexually active: No Do you think of yourself as: straight/heterosexual Current gender identity: female What is your relationship status?: How often do you talk on the phone with friends or family?: three or more times per week How often do you get together with friends or relatives?: once per week How often do you attend anglican or mu-ism services?: 4 or more times per year Do you belong to any clubs or organized social groups?: yes Panel score (0-1 are the most socially isolated patients): 4 What type of physical activity do you participate in: decline to answer Duration: decline to answer Frequency: decline to answer Jessica/Amish: Judaism Special jessica needs: No Seatbelt use: always Drive intox or ride w/intox piledriver carpenter: No Do you feel safe at home: Yes Do you feel safe in your relationship?: Yes Exam Narrative Exam Narrative: Const: Obese elderly female in NAD. HEENT: NC/AT. Normal facial exam. Eyes: Normal conjunctiva and sclera. Neck: Supple. Trachea midline. Lungs: Normal respiratory effort. Bronchitic cough present. Few scattered wheezes throughout. Minimal left-sided reproducible chest pain. Cor: RRR without murmur/gallop. Good radial pulses. GI: Soft. NT/ND. No guarding or rebound. Neuro: A+O x 3. Normal speech, mentation, gait. Cranial nerves II - XII grossly intact. No gross motor or sensory deficit. Ext: No C/C/E. Skin: Warm and dry without rash. Sign Out Sign Out Data: Sign Out Comment: Pending chest x-ray, delta Trop, reevaluation for improvement with albuterol in regards to respiratory symptoms Last updated by Jose Verma MD at 02/13/22 07:58
--- NOTE | 2022-02-13 06:45 | DI.RAD_ITS ---
Exam(s) XR PORTABLE CHEST AP EXAM: XR PORTABLE CHEST AP CLINICAL HISTORY: cough, SOB. TECHNIQUE: 2D digital imaging was performed. COMPARISON: CR XR CHEST 2V PA LATERAL from 02/02/2021 FINDINGS: Single AP portable view. Heart size is upper normal. The mediastinum is not widened. Lungs are clear. No infiltrates nor obvious pleural effusions. IMPRESSION: No acute pulmonary findings on this single AP portable view of the chest. DATA REPOSITORY: RADIATION DOSE DELIVERED:
[2022-02-13 07:16] LABS: Abs Immature Grans 0.01 10^3/uL (0.0-0.06); Absolute Basophil Count 0.04 10^3/uL (0.0-0.2); Absolute Lymphocyte Count 1.24 10^3/uL (1.2-3.4); Absolute Monocyte Count 0.24 10^3/uL (0.1-0.8); Absolute Neutrophil Count 2.11 10^3/uL (1.2-6.7); Basophils % 1.1; Eosinophils % 2.7; HCT 34.1 % (36.0-46.0); HGB 10.6 g/dL (11.2-15.7); Immature Grans % 0.3; Lymphocytes % 33.2; MCH 26.8 pg (27.0-33.0); MCHC 31.1 % (32.0-36.0); MCV 86 fL (80-95); MPV 12.8 fL (8.0-11.0); Monocytes % 6.4; Neutrophils % 56.3; RBC 3.95 10^6/uL (3.93-5.22); RDW 15.8 % (11.7-14.6); RDW-SD 50.1 fL; WBC 3.74 10^3/uL (4.4-10.8)
[2022-02-13] MEDS: Albuterol 2.5 MG/3 ML INH SOLN VIAL UPD (07:27)
[2022-02-13 07:34] LABS: Platelet Count 85 10^3/uL (130-400)
[2022-02-13 07:45] LABS: Anion Gap 8.3 mmol/L (3-11); BUN 22 mg/dL (7-18); CO2 28.7 mmol/L (21.0-32.0); CREATININE 0.9 mg/dL (0.55-1.02); Calcium 9.4 mg/dL (8.5-10.1); Chloride 104 mmol/L (98-107); Estimated GFR 66.26 (mL/min/1.73m2); Glucose 113 mg/dL (74-106); Potassium 3.9 mmol/L (3.5-5.1); Sodium 141 mmol/L (136-145); Troponin I < 50 ng/L (<or=60)
--- NOTE | 2022-02-13 09:33 | W.EDPROG ---
Date of service: 02/13/22 Time of Service: 09:33 Medical Decision Making patient's labs and xray unremarkable, she denies pain now and no longer has wheezing, will obtain delta troponin and given her hx of copd start her on prednisone second troponin negative and she remains stable and states she has no pain and feels well, normal lung sounds now. She is stable for d/c, do not feel more anbitiotics indicated advised to continue her doxy and will have her continue prednisone as well, advised to f/u with pcp and return precautions given Sign Out Sign Out Data: Sign Out Comment: Pending chest x-ray, delta Trop, reevaluation for improvement with albuterol in regards to respiratory symptoms Last updated by Jose Verma MD at 02/13/22 07:58 Discharge Plan Disposition Patient Disposition: HOME Condition: Stable Discharge Details Clinical Impression: Chest pain, Chronic obstructive lung disease Primary Care Provider: Colleen Vargas ED Provider: Catracho Grossman Home Meds and New Rx's Prescriptions: New prednisone 20 mg tablet 60 mg PO DAILY 4 Days Qty: 12 0RF Continued Spiriva Respimat 2.5 mcg/actuation mist 2 puff inhalation DAILY Qty: 4 2RF albuterol sulfate [ProAir HFA] 90 mcg/actuation HFA aerosol inhaler 2 puff inhalation Q6H PRN (Reason: shortness of breath or wheezing) Qty: 8.5 0RF phenazopyridine [Pyridium] 200 mg tablet 200 mg PO TID PRN (Reason: pain) Qty: 6 0RF doxycycline hyclate 100 mg capsule 100 mg PO BID Qty: 14 0RF benzonatate 100 mg capsule 100 mg PO TID PRN (Reason: cough) Qty: 14 0RF ferrous sulfate 325 mg (65 mg iron) tablet 325 mg PO BID Qty: 90 1RF lisinopril 40 mg tablet 40 mg PO DAILY Qty: 90 4RF pantoprazole [Protonix] 40 mg tablet,delayed release (DR/EC) 40 mg PO DAILY Qty: 90 2RF sertraline 50 mg tablet 50 mg PO DAILY Qty: 90 4RF hydrochlorothiazide 12.5 mg tablet 12.5 mg PO DAILY Qty: 90 3RF ketoconazole 2 % cream 1 applic TP BID Qty: 60 1RF atorvastatin 40 mg tablet 10 mg PO DAILY Rx Instructions: 4--21 redecreased the dose re:pt not taking the rx before so back to usual rx Discharge Instructions Instructions: COPD (Chronic Obstructive Pulmonary Disease) (ED) Additional Instructions: I suspect you have chest wall pain from the coughing continue the doxycycline and take the prednisone, the next dose of prednisone would be tomorrow follow up with your primary care provider within 1 week especially if symptoms continue if you feel more ill, have severe worsening pain or difficulty breathing return to the emergency department
[2022-02-13 10:22] LABS: Troponin I < 50 ng/L (<or=60)
== END 2022-02-13 11:35 | disposition home or self-care (01) ==
PROVIDERS: Emergency Medicine; Emergency Provider Emergency Medicine; PCP Family Medicine
DX: J44.9 Chronic obstructive pulmonary disease, unspecified (principal); R07.9 Chest pain, unspecified; E66.9 Obesity, unspecified; Z87.891 Personal history of nicotine dependence
CPT/HCPCS: 80048; 93005; 94640; 99283; 71045; 84484; 85025; 93010; 99285; J7613

== ENCOUNTER 2022-03-05 10:33 | Outpatient (CLI) | payer MEDICARE, SELFPAY ==
--- NOTE | 2022-03-05 10:15 | DI.RAD_ITS ---
Exam(s) XR KNEE RT 3V AP,LAT,PAULINA EXAM: XR KNEE RT 3V AP,LAT,PAULINA CLINICAL HISTORY: medial knee pain. TECHNIQUE: 2D digital imaging was performed. Three views. COMPARISON: No exams were available for comparison FINDINGS: BONES: No acute fracture is present. No bony destructive lesion is seen. JOINTS: Moderate narrowing medial femoral tibial joint space. Mild periarticular spurring. No joint effusion is seen. SOFT TISSUE: Normal. IMPRESSION: Moderate degenerative changes medial femoral tibial joint. DATA REPOSITORY: RADIATION DOSE DELIVERED:
== END 2022-03-05 10:34 | disposition home or self-care (01) ==
LOC: DIORS 10:33
PROVIDERS: PCP Family Medicine; Referring Provider Family Medicine; Visit Provider Physician Assistant Surgical
DX: M17.11 Unilateral primary osteoarthritis, right knee (principal)
CPT/HCPCS: 20610; 73562; J1040

== ENCOUNTER → 2022-05-21 10:08 | Outpatient (BNVA) | payer MEDICARE, SELFPAY | PROVIDERS: PCP Family Medicine; Referring Provider Family Medicine; Visit Provider Student in an Organized Health Care Education/Training Program | DX: M17.11 Unilateral primary osteoarthritis, right knee (principal) | CPT/HCPCS: 20610; J1040 ==

== ENCOUNTER 2022-05-28 02:59 | Outpatient (CLI) | payer MEDICARE, SELFPAY ==
[2022-05-28 12:20] LABS: Abs Immature Grans 0.03 10^3/uL (0.0-0.06); Absolute Basophil Count 0.05 10^3/uL (0.0-0.2); Absolute Eosinophil Count 0.15 10^3/uL (0.0-0.7); Absolute Lymphocyte Count 1.25 10^3/uL (1.2-3.4); Basophils % 1.1; Eosinophils % 3.3; HCT 34.3 % (36.0-46.0); HGB 10.3 g/dL (11.2-15.7); Immature Grans % 0.7; Lymphocytes % 27.9; MCH 26.2 pg (27.0-33.0); MCV 87 fL (80-95); MPV 12.8 fL (8.0-11.0); Monocytes % 6.7; Neutrophils % 60.3; RBC 3.93 10^6/uL (3.93-5.22); RDW 16.4 % (11.7-14.6); RDW-SD 53.1 fL; WBC 4.48 10^3/uL (4.4-10.8)
[2022-05-28 12:29] LABS: Iron 161 ug/dL (50-170); Total Iron Binding Capacity 448 ug/dL (250-450); Transferrin Sat 36 % (15-50)
[2022-05-28 12:49] LABS: ALT 42 U/L (14-59); AST 39 U/L (15-37); Albumin 4.1 g/dL (3.4-5.0); Alkaline Phosphatase 109 U/L (46-116); Anion Gap 8.7 mmol/L (3-11); BUN 14 mg/dL (7-18); Bilirubin, Total 0.8 mg/dL (0.2-1.0); CO2 28.3 mmol/L (21.0-32.0); CREATININE 0.9 mg/dL (0.55-1.02); Chloride 104 mmol/L (98-107); Estimated GFR 66.26 (mL/min/1.73m2); Glucose 109 mg/dL (74-106); Potassium 3.7 mmol/L (3.5-5.1); Sodium 141 mmol/L (136-145); Total Protein 7.6 g/dL (6.4-8.2)
[2022-05-28 12:55] LABS: Diff Comment Diff Reviewed; Platelet Count 88 10^3/uL (130-400); RBC Morphology Normal
== END 2022-05-28 03:00 | disposition home or self-care (01) ==
LOC: LOS 02:59
PROVIDERS: PCP Family Medicine; Visit Provider Family Medicine
DX: K76.0 Fatty (change of) liver, not elsewhere classified (principal); R06.00 Dyspnea, unspecified; R73.03 Prediabetes; Z00.00 Encounter for general adult medical examination without abnormal findings
CPT/HCPCS: 36415; 80053; 83540; 83550; 85025

== ENCOUNTER → 2022-08-23 08:41 | Outpatient (BNVA) | payer MEDICARE, SELFPAY | PROVIDERS: PCP Family Medicine; Referring Provider Family Medicine | DX: M65.311 Trigger thumb, right thumb (principal); M17.11 Unilateral primary osteoarthritis, right knee | CPT/HCPCS: 20610; J1040 ==

== ENCOUNTER → 2022-09-24 09:48 | Outpatient (BNVA) | payer MEDICARE, SELFPAY | PROVIDERS: PCP Family Medicine; Referring Provider Family Medicine; Visit Provider Student in an Organized Health Care Education/Training Program | DX: M65.311 Trigger thumb, right thumb (principal) | CPT/HCPCS: 99213 ==

== ENCOUNTER 2022-10-16 10:01 | Day surgery (SDC) | payer MEDICARE, SELFPAY ==
--- NOTE | 2022-10-16 07:37 | W.PM.DSUDISC ---
Date of service: 10/16/22 Time of Service: 07:38 Discharge Plan Disposition Patient Disposition: Home Condition: Good Discharge Details Reason For Visit: Right trigger thumb Attending Provider: Mumtaz Coelho Primary Care Provider: Colleen Vargas Home Meds and New Rx's Prescriptions: Continued albuterol sulfate [ProAir HFA] 90 mcg/actuation HFA aerosol inhaler 2 puff inhalation Q6H PRN (Reason: shortness of breath or wheezing) Qty: 8.5 0RF hydrochlorothiazide 25 mg tablet 25 mg PO DAILY Qty: 90 3RF ferrous sulfate 325 mg (65 mg iron) tablet 325 mg PO BID Qty: 90 1RF pantoprazole [Protonix] 40 mg tablet,delayed release (DR/EC) 40 mg PO DAILY Qty: 90 3RF lisinopril 40 mg tablet 40 mg PO DAILY Qty: 90 4RF sertraline 50 mg tablet 50 mg PO DAILY Qty: 90 4RF ketoconazole 2 % cream 1 applic TP BID Qty: 60 1RF Discharge Instructions Stand Alone Forms: Laquita Pascal Finger Release Activity:: Elevate Remove Dressings/Wound Care:: 48 hours Shower/Bathe:: 48 hours Diet:: As Tolerated Discharge Orders Discharge Orders: Discharge Order (Routine); Ordered 10/16/22 Ordered By: Cassie Iraheta
[2022-10-16 10:19] VITALS: BP 180/59; PULSE 60; RESP 18; TEMP 36.4; O2SAT 94
[2022-10-16] MEDS: Sodium Bicarbonate 50 MEQ/50 ML VIAL (13:05)
[2022-10-16] MEDS: Lidocaine 1% Multi-Dose W/EPI 1/100,000 50 ML VIAL (13:05)
[2022-10-16 13:23] VITALS: BP 174/42; PULSE 60; RESP 16; TEMP 36.5; O2SAT 96
--- NOTE | 2022-10-16 18:25 | W.PM.OP ---
Date of service: 10/16/22 Time of Service: 14:00 Operative Note Operative Note DATE OF PROCEDURE: 10/16/22 PRE-OP DIAGNOSIS: Right trigger thumb POST-OP DIAGNOSIS: same PROCEDURE: Trigger Finger Release -right thumb SURGEON: Mumtaz Coelho Refer to Anesthesia Record ESTIMATED BLOOD LOSS: 0 PATHOLOGY: none sent COMPLICATIONS: None Patient was transported to: same day Patient's condition: stable Indications: I have seen Ariella in clinic for symptoms of a trigger finger. The catching, clicking, locking, and pain limited function. The diagnosis of trigger finger was evident. The symptoms had not responded to conservative measures. I discussed trigger finger release with the patient. I reviewed the risks of the procedure to include, but not limited to, bleeding, infection, pain, stiffness, incomplete release, damage to nerves or vessels, continued catching, recurrence. Despite these risks, the patient elected to proceed. Findings: There was a tightened A1 kim which was released. The flexor tendons were inspected and the patient was able to move the finger without any catching, clicking, or locking. Procedure Description: Ariella was greeted in the preoperative holding area where the correct side was identified and marked. The consent was reviewed with the patient and signed. All questions were answered. She was taken back to the operating room. The patient was placed into the supine position on the operating room table with the right arm on an arm board. All bony prominences were well padded. No prophylactic antibiotics were administered since this was a clean, elective hand surgical case. The right arm was then prepped with Chloraprep and draped in a standard fashion with stockinette and extremity drape. A timeout to confirm correct identity, side and site, procedure, allergies, anesthesia, and medical concerns was performed. The surgical site was marked as a longitudinal incision directly over the A1 kim of the involved digit. This was confirmed with palpation during finger flexion. This area, overlying the metacarpal head, was then anesthetized with 1% Lidocaine. The patient tolerated this well and once the anesthetic had setup, the procedure began. A longitudinal incision was made through skin only, approximately 1cm. The deep tissues were dissected bluntly. Once the A1 kim and flexor tendons were identified the soft tissue including neurovascular structures were retracted medially and laterally. There were no crossing structures over the A1 kim. The proximal edge of the kim was identified and the kim was incised with tenotomy scissors. There was a release of the tendons once this was fully released. The tendons were then removed from the wound and inspected. Excess synovium was resected. The tendons were then returned and the patient was asked to move the finger into deep flexion and back to extension. There was no recreation of the pre-operative symptoms. The hand was then once more inspected for any A0 kim or area of possible constriction. The wound was then irrigated and the skin was closed with a 4-0 Nylon. This was dressed with gauze and a Conform dressing. The patient tolerated the procedure well and was returned to the Same Day Surgery area in a stable condition suffering no known complication.
== END 2022-10-16 13:50 | disposition home or self-care (01) ==
PROVIDERS: PCP Family Medicine; Visit Provider Student in an Organized Health Care Education/Training Program
PROC: (CPT 26055; principal; 2022-10-16 11:15)
DX: M65.311 Trigger thumb, right thumb (principal)
CPT/HCPCS: 26055

== ENCOUNTER 2022-10-23 18:40 | Outpatient (REF) | payer MEDICARE, SELFPAY | END 2022-10-23 18:41 | disposition home or self-care (01) | LOC: LBN 18:40 | PROVIDERS: PCP Family Medicine; Visit Provider Physician Assistant | DX: J02.9 Acute pharyngitis, unspecified (principal) | CPT/HCPCS: 87070 ==

== ENCOUNTER → 2022-12-19 13:01 | Outpatient (BNVA) | payer MEDICARE, SELFPAY | PROVIDERS: PCP Family Medicine; Referring Provider Family Medicine | DX: M17.11 Unilateral primary osteoarthritis, right knee (principal) | CPT/HCPCS: 20610; J1040 ==

== ENCOUNTER → 2023-03-19 10:20 | Outpatient (BNVA) | payer MEDICARE, SELFPAY | PROVIDERS: PCP Family Medicine; Referring Provider Family Medicine; Visit Provider Podiatrist | DX: M21.611 Bunion of right foot (principal); M79.672 Pain in left foot; M79.674 Pain in right toe(s); M20.42 Other hammer toe(s) (acquired), left foot; M20.41 Other hammer toe(s) (acquired), right foot; L84 Corns and callosities | CPT/HCPCS: 99214 ==

== ENCOUNTER 2023-04-01 19:38 | Outpatient (CLI) | payer MEDICARE, SELFPAY ==
--- NOTE | 2023-04-01 15:15 | DI.RAD_ITS ---
Exam(s) XR LUMBAR SPINE COMPLETE EXAM: XR LUMBAR SPINE COMPLETE CLINICAL HISTORY: back pain M54.9 DORSALGIA. TECHNIQUE: 2D digital imaging was performed. Five views. COMPARISON: CR LUMBAR SPINE AP, LAT from 11/24/2016 FINDINGS: BONES: No fracture or destructive lesion. Vertebral body heights are maintained. Facet degenerative changes of S1. DISKS: Severe narrowing of the L5-S1 disc space. Small endplate osteophytes. Intervertebral disc sp aces are maintained. ALIGNMENT: Lumbar spinal alignment is within normal limits. SOFT TISSUE: Aorta is calcified and normal in diameter. IMPRESSION: Degenerative changes greatest at L5-S1 DATA REPOSITORY: RADIATION DOSE DELIVERED:
== END 2023-04-01 19:39 | disposition home or self-care (01) ==
LOC: DI 19:39 → LBN 21:43
PROVIDERS: PCP Nurse Practitioner Family; Visit Provider Physician Assistant
DX: M54.9 Dorsalgia, unspecified (principal); L02.224 Furuncle of groin; M47.817 Spondylosis without myelopathy or radiculopathy, lumbosacral region
CPT/HCPCS: 72110; 87070; 87205

== ENCOUNTER 2023-04-12 11:18 | Outpatient (CLI) | payer MEDICARE, SELFPAY ==
--- NOTE | 2023-04-12 10:45 | DI.RAD_ITS ---
Exam(s) XR HAND LT COMPLETE EXAM: XR HAND LT COMPLETE CLINICAL HISTORY: left thumb pain. TECHNIQUE: 2D digital imaging was performed of the left hand. Three views were obtained. AP, later al and oblique views were obtained. COMPARISON: No exams were available for comparison FINDINGS: BONES: No acute fracture is present. No bony destructive lesion is seen. JOINTS: No dislocation present. There are moderate degenerative changes seen in the hand with joint s pace narrowing and osteophytes at the interphalangeal joints. The findings are most marked at the DIP joints of the 2nd through 5th fingers. The thumb is well maintained with mild degenerative changes s een at the 1st CMC joint. SOFT TISSUE: Normal. IMPRESSION: 1. No acute fracture or dislocation. 2. Mild degenerative changes seen at the 1st CMC joint of the thumb. DATA REPOSITORY: RADIATION DOSE DELIVERED:
== END 2023-04-12 11:19 | disposition home or self-care (01) ==
LOC: DIORS 11:18
PROVIDERS: PCP Nurse Practitioner Family; Referring Provider Family Medicine; Visit Provider Student in an Organized Health Care Education/Training Program
DX: M17.11 Unilateral primary osteoarthritis, right knee; M18.12 Unilateral primary osteoarthritis of first carpometacarpal joint, left hand
CPT/HCPCS: 20600; 73130; J1030

== ENCOUNTER 2023-06-06 13:42 | Outpatient (REF) | payer MEDICARE, SELFPAY ==
[2023-06-06 22:19] LABS: Bilirubin Negative (Negative); Blood Trace-intact (Negative); Clarity Cloudy (Clear); Glucose Negative (Negative); Ketones Negative (Negative); Leukocyte Esterase Moderate (Negative); Nitrite Negative (Negative); Urobilinogen 0.2 mg/dL (Up to 0.2)
[2023-06-06 22:29] LABS: Bacteria Moderate HPF (Negative); C & S Indicated? Yes; Casts Negative LPF (Negative); Crystals Negative HPF (Negative); Epithelial Cells Rare HPF (Negative); Mucus Negative (Negative); RBC 0-2 HPF (0-2); WBC >50 HPF (0-5)
== END 2023-06-06 13:43 | disposition home or self-care (01) ==
LOC: LBN 13:42
PROVIDERS: PCP Nurse Practitioner Family; Visit Provider Nurse Practitioner Family
DX: R30.0 Dysuria (principal); R35.0 Frequency of micturition; R82.998 Other abnormal findings in urine
CPT/HCPCS: 87077; 81003; 81015; 87086; 87186

== ENCOUNTER 2023-08-12 13:29 | Outpatient (REF) | payer MEDICARE, SELFPAY ==
[2023-08-12 21:29] LABS: Bilirubin Negative (Negative); Blood Negative (Negative); Clarity Turbid (Clear); Glucose Negative (Negative); Ketones Negative (Negative); Leukocyte Esterase Small (Negative); Nitrite Negative (Negative); Urobilinogen 0.2 mg/dL (Up to 0.2); pH 5.5 (5-8)
[2023-08-12 21:37] LABS: Bacteria Few HPF (Negative); C & S Indicated? Yes; Crystals Moderate Amorphous HPF (Negative); Epithelial Cells Rare HPF (Negative); Mucus Negative (Negative); Other Cells Rare Transitional (Negative); RBC 0-2 HPF (0-2); WBC 20-50 HPF (0-5)
== END 2023-08-12 13:30 | disposition home or self-care (01) ==
LOC: LBN 13:29
PROVIDERS: PCP Nurse Practitioner Family; Visit Provider Nurse Practitioner Family
DX: R35.0 Frequency of micturition (principal); R39.15 Urgency of urination; N39.0 Urinary tract infection, site not specified
CPT/HCPCS: 87077; 81003; 81015; 87086; 87186

== ENCOUNTER 2023-10-11 15:30 | Inpatient (IN) | payer MEDICARE, SELFPAY ==
[2023-10-11] VITALS (28 sets, daily range): BP systolic 134–205; BP diastolic 27–114; PULSE 60–75; RESP 14–25; TEMP 36.7–37.3; O2SAT 94–97
--- NOTE | 2023-10-11 15:30 | RT.EKG_ITS ---
APPROVED REPORT Exam: Resting ECG Reason for Exam: Altered mental status Patient Location: E HR:66 bpm ECG Measurements Heart Rate 66 AXIS IN 172 P 60 QRSd 85 QRS -9 QT 389 T 123 QTc 407 Conclusion Sinus rhythm...normal P axis, V-rate 60- 99 Probable LVH with secondary repol abnrm...multiple LVH criteria Narrow complex normal sinus rhythm at a rate of 66. Left axis deviation LVH based on voltage criteri a. Intervals within normal limits. T wave inversion in aVL with ST segment flattening left lateral chest wall leads. Compared to prior dated 2 years ago T wave inversions and ST segment flattening ar e similar. No acute injury pattern.
--- NOTE | 2023-10-11 15:39 | W.ED.GENAD ---
Discharge Plan Disposition Patient Disposition: Admit to [facility] Discharge Details Clinical Impression: Hx of falling, Symptomatic anemia, Thrombocytopenia Admit Date/Time: 10/11/23 20:03 Admit Provider: Mc Valdez Attending Provider: Mc Valdez Primary Care Provider: Rachel Cortez ED Provider: Donald Mata [facility] General Date/Time Provider Initiated Documentation: 10/11/23 15:39. HPI Narrative: MDM This is an overall well-appearing normothermic and not tachycardic 78-year-old female with history of Elkins arrives emergency department private vehicle in the setting of multiple falls and increased fatigue concerning for possibility of subarachnoid hemorrhage secondary to thrombocytopenia for which patient will undergo CT head. Patient does have extensive left-sided bruising however is not hypoxic and has no flail segments. Given that her fall was 1 week ago will obtain a screening two-view chest x-ray to assess for possibility of rib fractures. Equal breath sounds so doubt pneumothorax. No chest pain to doubt ACS however will obtain a troponin to assess for myocardial injury. Patient does have some shortness of breath secondary to COPD but given no chest pain and not suspicious for PE so I did not obtain a D-dimer. No pain out of proportion to suggest necrotizing soft tissue infection. No dysuria nor frequency so doubt UTI. Patient does have incontinence at baseline however has no back pain so I am not suspicious for cauda equina syndrome. I considered CVA however the patient has no focal neurological deficits and has a GCS of 15 so I did not feel that she would be a tPA candidate nor require an MRI. No nuchal rigidity nor fevers to suggest meningitis I did not feel that she required a lumbar puncture. No tonic-clonic activity to suggest seizure so I did not feel that she required an EEG. I considered sepsis however the patient does not appear septic and is not tachypneic nor tachycardic so did not draw blood cultures treat empirically with IV antibiotics nor check a lactate. My suspicion is low for GI bleed however as the patient is not tachycardic nor hypotensive however will obtain a CBC to assess for anemia. 4:30 PM Patient was found to have new anemia with a hemoglobin of 5.6 which certainly could be the cause of her weakness. Written and verbal consent obtained for transfusion of 2 units of PRBCs. She again denied black or bloody stools. She had no melena and no gross blood on rectal exam. Given trauma and anemia will obtain CT chest abdomen pelvis with T and L recons to assess for any traumatic intra-abdominal injuries. Negative troponin. Comprehensive metabolic panel showing no DELFINA. Mild new hyperbilirubinemia. Will obtain LDH to ensure that there is not a destructive process at play. No acute LFT abnormalities. Mild hyperglycemia but no anion gap and normal bicarbonate??not consistent with DKA. 4:52 PM CBC shows leukopenia more pronounced compared to prior. Patient has persistent thrombocytopenia. Reassuring normal LDH. 6 PM Chest with no signs of PE nor dissection. Stable pulmonary nodules. No acute intra-abdominal process. Hepatomegaly and small perihepatic ascites. No fracture nor subluxation of spine. Given soft nontender abdomen no fevers I am not suspicious for spontaneous bacterial peritonitis I do not feel that the patient requires a paracentesis. Patient has no signs of skull fracture. No obvious subdural. I met with the patient and her . Given her symptomatic anemia of unknown etiology we will plan on hospitalizing patient overnight. 6:[address] Valdez who agreed graciously to accept the patient for hospitalization. Chronic conditions affecting the care of the patient: Elevated BMI ELKINS History obtained from an outside historian: Patient's External record review: N/A Diagnostic interpretations performed by me: Per my independent interpretation chest x-ray shows: Per my independent interpretation EKG shows: Narrow complex normal sinus rhythm at a rate of 66. Left axis deviation LVH based on voltage criteria. Intervals within normal limits. T wave inversion in aVL with ST segment flattening left lateral chest wall leads. Compared to prior dated 2 years ago T wave inversions and ST segment flattening are similar. No acute injury pattern. ]Medications: N/A Social determinants of health affecting disposition: N/A Management discussed with: Hospitalist Treatment/interventions considered:N/A Response to therapies provided: N/A HPI This is an 78-year-old female with history of elevated BMI and ELKINS presents emergency department via private vehicle with her in the setting of increased fatigue and periods of confusion. Patient reportedly has seen off for the past several weeks. She has also been taking falls at home which is new. Patient reports that she is pale. No black nor bloody stools. Patient is incontinent of stool and urine at baseline. She denies dysuria and frequency. Apparently 8 months ago she hit her head. She has baseline shortness of breath secondary to COPD and remote history of tobacco use. No routine ethanol. No illicits. Patient denies nausea vomiting fevers dysuria chest pain and abdominal pain. She has not noticed any focal neurological deficits. Exam General: Well-appearing in no acute distress speaking in complete sentences. Head: Normocephalic, atraumatic. Eye: Extraocular eye movements intact. No conjunctival injection. No scleral icterus. Ear, nose, mouth, throat: Grossly normal inspection. Normal voice, handling secretions normally. Neck: Trachea midline. No midline cervical spinal tenderness. Cardiovascular: Well-perfused distal extremities. Regular rate and rhythm. Chest wall: No chest wall tenderness. No crepitance. Respiratory: Nonlabored respiration. Clear lungs bilaterally. No prolonged expiratory phase. Gastrointestinal: Mildly distended abdomen. Soft nontender. Rectal: With patient's nurse Amy as a art critic I completed a rectal exam. Patient had an external nonthrombosed and nonbleeding hemorrhoid at approximately the 12 o'clock position. No melena. No stigmata of recent bleed. Back: Left-sided flank bruises with tenderness. No flail segments. No midline thoracic nor lumbar spinal tenderness. No step-offs. No deformities. Musculoskeletal: No edema. Moving all 4 extremities spontaneously. Skin: Normal for age and race, grossly normal temperature and turgor. No acute rash. Neurologic: Alert and appropriate, no apparent acute deficits. Cranial nerves II through XII intact grossly. No dysmetria. No dysdiadochokinesia. No pronator drift. 5 out of 5 bilateral upper and lower extremity strength. GCS 15. Psychiatric: Mood and manner are appropriate. Grooming and personal hygiene are appropriate. Related Data Home Medications Medication Instructions Recorded Confirmed ferrous sulfate 325 mg (65 mg 325 mg PO BID #90 tabs 03/10/21 10/11/23 iron) tablet ketoconazole 2 % topical cream 1 applic topical BID #60 grams 10/09/22 10/11/23 albuterol sulfate 90 mcg/actuation 2 puff inhalation Q6H PRN 11/21/22 10/11/23 aerosol inhaler (ProAir HFA) shortness of breath or wheezing #8.5 grams pantoprazole 40 mg tablet,delayed 40 mg PO DAILY #90 tab-caps 03/22/23 10/11/23 release (Protonix) hydrochlorothiazide 25 mg tablet See Rx Instructions .Route 07/02/23 10/11/23 .COMPLEX #90 tabs lisinopril 40 mg tablet See Rx Instructions .Route 09/26/23 10/11/23 .COMPLEX #90 tabs sertraline 50 mg tablet See Rx Instructions .Route 09/26/23 10/11/23 .COMPLEX #90 tabs nystatin 100,000 unit/gram topical 1 applic topical TID #30 grams 09/27/23 10/11/23 powder Previous Rx's Medication Instructions Recorded ferrous sulfate 325 mg (65 mg 325 mg PO BID #90 tabs 03/10/21 iron) tablet ketoconazole 2 % topical cream 1 applic topical BID #60 grams 10/09/22 albuterol sulfate 90 mcg/actuation 2 puff inhalation Q6H PRN 11/21/22 aerosol inhaler (ProAir HFA) shortness of breath or wheezing #8.5 grams pantoprazole 40 mg tablet,delayed 40 mg PO DAILY #90 tab-caps 03/22/23 release (Protonix) hydrochlorothiazide 25 mg tablet See Rx Instructions .Route 07/02/23 .COMPLEX #90 tabs lisinopril 40 mg tablet See Rx Instructions .Route 09/26/23 .COMPLEX #90 tabs sertraline 50 mg tablet See Rx Instructions .Route 09/26/23 .COMPLEX #90 tabs nystatin 100,000 unit/gram topical 1 applic topical TID #30 grams 09/27/23 powder Allergies Allergy/AdvReac Type Severity Reaction Status Date / Time Metronidazole HCl AdvReac Severe stomach Verified 10/11/23 15:50 [From Flagyl] upset amoxicillin [Amoxicillin] AdvReac Intermediate GI UPSET Verified 10/11/23 15:50 clavulanic acid AdvReac Intermediate GI UPSET Verified 10/11/23 15:50 doxycycline AdvReac Intermediate severe Verified 10/11/23 15:50 reflux erythromycin base AdvReac Intermediate Nausea Verified 10/11/23 15:50 [Erythromycin Base] meloxicam AdvReac Intermediate Nausea Verified 10/11/23 15:50 Sulfa (Sulfonamide AdvReac Intermediate NAUSEA AND Verified 10/11/23 15:50 Antibiotics) VOMITING doxycycline AdvReac Other (See Uncoded 10/11/23 15:50 Comment) General STEFANIA: 3 Medical Decision Making Quality:SDOH Health Related Social Needs: No Data to Display PFSH All Active Problems (Updated 10/11/23 @ 20:16 by Mc Valdez) Acute blood loss anemia (Acute) Thrombocytopenia (Chronic) Symptomatic anemia (Acute) Hx of falling (Acute) Osteoarthritis of carpometacarpal joint of left thumb (Chronic) 40 mg Depo: 04/12/23 Back pain (Acute) Bunion, right foot (Acute) Acquired hammer toe of left foot (Acute) Acquired hammer toe of right foot (Acute) Toe pain, left (Acute) Toe pain, right (Acute) Trigger thumb of right hand (Acute) Chronic obstructive lung disease (Chronic) PFTs September 2020 with FVC of 1.88 (77% predicted), FEV1 of 1.37 (75% predicted) and FEV1/FVC of 73%, TLC 4.70 (103% predicted), DLCO 76% Depressive disorder (Acute) Essential hypertension (Chronic 09/08/13) Hyperlipidemia (Chronic 08/12/12) Non-alcoholic fatty liver disease (Chronic 12/01/12) +ultrasound 2014/persistent elevated transaminases/neg. 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 Kim, [facility] [place] History Generalized osteoarthritis of multiple sites present, but not very bothersome - affects back, hands History of tobacco abuse quit 2014, smoked 1/2 ppd x 50 yrs Nonobstructive atherosclerosis of coronary artery (~05/2021) 05/15/21: Coronary calcium score 331, consistent with heavy atherosclerotic plaque burden and 80th percentile rank based on age race and gender nonobstructive calcified coronary artery disease. Tubular adenoma (~10/2020) Fracture of right distal radius (05/30/20) after a fall at home, tripping injury, managed nonoperatively. Polyp of colon 07/2010; 12/03/12 : multiple polyps including tubular adenomas and pandiverticulosis. 2016:sessile serrated adenoma/ Heart murmur normal echocardiogram Acute gouty arthritis (05/14/17) Diverticulosis of colon without diverticulitis GERD (gastroesophageal reflux disease) Surgical History History of colonoscopy (~10/2020) Hx of breast biopsy Left Status post abdominal hysterectomy Social History Smoking/Tobacco Use Status: Former Tobacco Use tobacco type: cigarettes Quit Date: 06/13/12 Pack-years: 25 Second Hand Exposure: Yes Smoking risk assessment performed?: Yes Alcohol Intake: former Drug use: Never Substance use type: does not use Details: alcohol: t-7 Adopted: Yes Caregiver/Support person: No Household members: spouse Housing: house Number of Children: 2 number of grandchildren: 3 Do you need help understanding health information?: Never Pets and animals: Yes Pets and animals: dog(s) Sexually active: No Do you think of yourself as: straight/heterosexual Current gender identity: female What is your relationship status?: How often do you talk on the phone with friends or family?: twice per week How often do you get together with friends or relatives?: once per week How often do you attend presybeterian or congregation services?: 4 or more times per year Do you belong to any clubs or organized social groups?: yes Panel score (0-1 are the most socially isolated patients): 4 What type of physical activity do you participate in: none and decline to answer Duration: 15-30 minutes/day Frequency: 3-4 times per week Jessica/Christian: Islam Special jessica needs: No Agree to transfusion: Yes Seatbelt use: always Drive intox or ride w/intox locomotive driver: No Do you feel safe at home: Yes Do you feel safe in your relationship?: Yes Victim of physical abuse: No Victim of emotional abuse: No Victim of sexual abuse: No Would you like helpful sources: No
--- NOTE | 2023-10-11 15:45 | DI.CT_ITS ---
Exam(s) CT HEAD WO EXAM: CT HEAD WO CLINICAL HISTORY: History of falling. TECHNIQUE: Imaging Protocol: Axial computed tomography images with coronal and sagittal reformatted images were created and reviewed COMPARISON: CT CT HEAD WO from 11/26/2020 FINDINGS: There is significant patient motion artifact limiting the examination. Ventricles and Extra axial spaces: Normal in size and morphology for the patient's age. Hemorrhage: None. Cerebral parenchyma: There are areas of decreased attenuation in the white matter likely reflecting c hronic microvascular ischemic disease. Midline shift: None. Brainstem/Cerebellum: Normal. Calvarium: Normal. Visualized Paranasal sinuses/Mastoids: Clear. Soft Tissues: Unremarkable. IMPRESSION: 1. Suboptimal examination secondary to patient motion artifact. 2. No evidence of a skull fracture. No large hemorrhage is seen. Small subdural or subarachnoid hem orrhage may be missed secondary to the patient's motion artifact. 3. Age-related cerebral atrophy and small vessel ischemic disease. Small infarct may be missed secon rios to patient's motion artifact. RADIATION DOSE DELIVERED: 727.43mGy.cm Total DLP DATA REPOSITORY: All CT scans at this facility are submitted to the National Radiology Data Registry (NRDR) Dose Index Registry (DIR) with the [employer] (ACR). RADIATION OPTIMIZATION: All CT scans at this facility use at least one of these dose optimization te chniques: automated exposure control; mA and/or kV adjustment per patient size (includes targeted exa ms where dose is matched to clinical indication); or iterative reconstruction.
[2023-10-11 16:07] LABS: Abs Immature Grans 0.01 10^3/uL (0.0-0.06); Absolute Basophil Count 0.02 10^3/uL (0.0-0.2); Absolute Eosinophil Count 0.07 10^3/uL (0.0-0.7); Absolute Lymphocyte Count 0.81 10^3/uL (1.2-3.4); Absolute Monocyte Count 0.21 10^3/uL (0.1-0.8); Absolute Neutrophil Count 2.02 10^3/uL (1.2-6.7); Basophils % 0.6 %; Eosinophils % 2.2 %; Immature Grans % 0.3 %; Lymphocytes % 25.8 %; MCH 19.7 pg (27.0-33.0); MCHC 26.7 % (32.0-36.0); MCV 74 fL (80-95); Monocytes % 6.7 %; Neutrophils % 64.4 %; RBC 2.84 10^6/uL (3.93-5.22); RDW 18.6 % (11.7-14.6); RDW-SD 49.8 fL; WBC 3.14 10^3/uL (4.4-10.8)
[2023-10-11 16:11] LABS: HGB 5.6 g/dL (11.2-15.7)
--- NOTE | 2023-10-11 16:15 | DI.CT_ITS ---
Exam(s) CT CHEST PE ABD PELVIS W CT THORACIC LUMBAR SPINE REC EXAM: CT CHEST PE ABD PELVIS W CLINICAL HISTORY: Left-sided bruising anemia. TECHNIQUE: Imaging Protocol: Axial CT angiography was performed with multi-slice acquisition and mu lti-planar and/or 3D reconstructions. CONTRAST MATERIAL: Intravenous: Omnipaque 350contrast volume:100 mL COMPARISON: CT RENAL COLIC WO CONTRAST from 11/24/2016 CT,NM,TMT NM MPI REST STRESS GRP from 02/02/[address] CHEST W from 03/07/2021 FINDINGS: CHEST: Tracheobronchial tree: Patent where visualized. Pulmonary parenchyma: There is a stable 5 mm nodule in the left lower lobe (series 9, image 446). Th ere is a nodule also seen in the left lingula which now measures 1.0 cm compared to 0.8 cm on the shantell or examination. (Series 9, image 356). The nodule is fat density may represent hamartoma. There is a stable 5 mm nodule in the medial aspect of the right lower lobe (series 9, image 376). There is a stable 4 mm nodule in the medial aspect of the right upper lobe (series 9, image 184). No focal con solidating infiltrates are seen. There is scarring in the left lower lobe. Pulmonary Arteries: No evidence of filling defect to suggest pulmonary emboli. Mediastinum and Jyothi: No dominant adenopathy or fluid collection. The esophagus is unremarkable. Visualized thyroid gland: Unremarkable. Pleura: No effusion or pneumothorax. Heart: The heart is not dilated. Coronary artery calcification is present. No pericardial effusion. Aorta: Thoracic aorta non-dilated. No evidence of dissection. Atherosclerotic calcification is prese nt. Bones: Within normal limits for the patient's age. No displaced rib fractures are seen. Soft tissues: Unremarkable. Thoracic spine recons: There are degenerative changes seen in the thoracic spine. No acute fracture or subluxation is seen in the thoracic spine. ABDOMEN: Liver: There is a nodular contour of the liver suggesting hepatic cirrhosis. The liver is enlarged. No measurable mass. Portal, Superior Mesenteric, and Splenic Veins: Unremarkable. Gallbladder and Biliary Tract: No radiodense calculus or dilation. Pancreas: Normal density, no abnormal calcifications or inflammatory process. Spleen: Splenomegaly. Adrenals: No masses seen. Kidneys: Normal size, contour and axis. No radiodense stones or obstructive uropathy. There is a simp le cyst in the right kidney. No follow-up is recommended. Abdominal Aorta: Abdominal portion non-dilated. Atherosclerotic calcification is present. Bowel: There is diverticulosis of the colon without evidence of acute diverticulitis. No evidence of bowel wall thickening or obstruction. Normal appendix. Peritoneal Cavity: Small amount of perihepatic ascites. No free air. Lymph Nodes: Within normal limits. Bones: Within normal limits for the patient's age. Soft Tissues: Unremarkable. Lumbar spine recons: Degenerative changes are seen in the lumbar spine. No acute fracture or subluxa tion is seen. PELVIS: Bladder: Symmetric distention, no gross wall thickening. Reproductive Organs: Status post hysterectomy. Lymph Nodes: Within normal limits. Bones: Within normal limits. IMPRESSION: 1. No evidence pulmonary embolism, thoracic aortic dissection or aneurysm. 2. Stable pulmonary nodules. 3. No acute pulmonary process. 4. No acute abdominal or pelvic process. 5. Findings of hepatic cirrhosis and hepatosplenomegaly. Small perihepatic ascites. 6. No acute fracture or subluxation in the thoracic or lumbar spine. RADIATION DOSE DELIVERED: 1,712.03mGy.cm Total DLP DATA REPOSITORY: All CT scans at this facility are submitted to the National Radiology Data Registry (NRDR) Dose Index Registry (DIR) with the [employer] (ACR). RADIATION OPTIMIZATION: All CT scans at this facility use at least one of these dose optimization te chniques: automated exposure control; mA and/or kV adjustment per patient size (includes targeted exa ms where dose is matched to clinical indication); or iterative reconstruction.
[2023-10-11 16:23] LABS: ALT 31 U/L (14-59); AST 23 U/L (15-37); Alkaline Phosphatase 90 U/L (46-116); Anion Gap 8.7 mmol/L (3-11); BUN 18 mg/dL (7-18); Bilirubin, Total 1.4 mg/dL (0.2-1.0); CO2 27.3 mmol/L (21.0-32.0); CREATININE 0.9 mg/dL (0.55-1.02); Calcium 9.1 mg/dL (8.5-10.1); Chloride 106 mmol/L (98-107); Estimated GFR 65.44 (mL/min/1.73m2); Glucose 110 mg/dL (74-106); Potassium 3.5 mmol/L (3.5-5.1); Sodium 142 mmol/L (136-145); Total Protein 7.1 g/dL (6.4-8.2); Troponin I < 50 ng/L (< or =60)
[2023-10-11 16:32] LABS: Platelet Count 88 10^3/uL (130-400)
[2023-10-11 16:33] LABS: Anisocytosis 1+; Diff Comment RBC Morph Reviewed; Hypochromasia 2+; Microcytosis 1+; Poikilocytes 1+
[2023-10-11] MEDS: Normal Saline - Diluent 50 ML VIAL IJ (16:38)
[2023-10-11] MEDS: Omnipaque 350 MG/ML 100 ML BTL IJ (16:39)
[2023-10-11 16:48] LABS: LDH 176 U/L (81-234)
[2023-10-11 19:43] LABS: Lactate 0.9 mmol/L (0.6-1.4)
--- NOTE | 2023-10-11 19:43 | HPE_ITS ---
Date of service: 10/11/23 Time of Service: 19:45 Assessment and Plan Assessment and plan (1) Acute blood loss anemia: Start date: 10/11/23 Status: Acute Assessment and plan: This is a 78-year-old lady who has had recent onset of pedal edema and positional dizziness which she describes as vertiginous though it is mostly with standing upright from lying down. She had no positional vertiginous symptoms when lying down. She has no history of vertigo. He feels better nonthermal transfusion with 2 units of packed red blood cells and follow-up H&H will be performed with continued transfusion if she has a hemoglobin below 7 g/dL. She was not cardiovascularly stable when seen in the ED and was admitted to the [facility] floor. She does not have tachycardia and has been monitored telemetry while being transfused. Will check for deficiencies with patient chronically on ferrous sulfate with mild anemia. She seems to have lost 5 g/dL with now microcytic anemia in the last 6 months. She does have SAENZ with no history of esophageal varices and no reported history of upper GI bleed. She also has a reported history of lower GI bleeding with a history of colon polyps last colonoscopy 2022. If she has occult blood in her stool and if she does not respond to transfusions, surgical consultation will be ordered. She is a full code. (2) Hx of falling: Start date: 10/11/23 Status: Acute Assessment and plan: Patient has had positional dizziness but not true orthostasis as measured in the ED. She describes the dizziness as vertiginous and with pedal edema and progressive symptoms it could be associate with her anemia. She appears to be feeling better after transfusion. Monitor clinically the patient having negative imaging of her head because of recent falls. Imaging of the chest and thoracic spine as well as abdomen also negative for any injuries from her falls. (3) Non-alcoholic fatty liver disease: Status: Chronic Assessment and plan: PT/INR slightly elevated liver function test normal but continued thrombocytopenia which is not severe and slightly elevated bilirubin. Trend labs while hospitalized. (4) Thrombocytopenia: Status: Chronic Assessment and plan: Chronic and stable with patient not having DVT prophylaxis with Lovenox or heparin because of this problem. Also she would not be prophylaxed because of lower GI bleed though this does not sound like an acute GI bleed (5) Essential hypertension: Status: Chronic Assessment and plan: Not controlled presently off her usual morning meds. Restart medications and monitor blood pressure. She was not hypotensive with her bleeding and is most apparent over time patient will to hemoglobin of 5 g/dL. (6) Chronic obstructive lung disease: Status: Chronic Assessment and plan: Continue albuterol nebulizer as needed. Patient is on controller therapy. She has decreased aeration of lung exam but no evidence of pneumonia. Qualifiers: COPD type: chronic bronchitis Chronic bronchitis type: simple Qualified Code(s): J41.0 - Simple chronic bronchitis History of Present Illness History of Present Illness Chief Complaint: Vertiginous dizziness with falls N arrative: Is a 78-year-old female patient presented to the ED via private vehicle after having several falls at home and feeling that the world was spinning especially when she would change positions of sitting. She had no significant head injury but did have bruising over her extremities. She does have Saenz with thrombocytopenia chronically and in the ED her PT/INR was not significantly elevated. She gives no history of esophageal varices. She fell a week ago but was continued to have dizziness prompting this ED visit. She was found to be anemic in the ED drop in her hemoglobin 5 g/dL over the last 5 months from 10 to 5 g/dL. She also has significant microcytosis which was new. She is on iron supplement at home. She also takes Protonix. She denies any abdominal discomfort or black tarry stools. She has had no hematochezia. She has no history of GI bleeds. She denies any hemoptysis with history of COPD. She is only on rescue inhalers. Denies fever, shortness of breath but has had some slight pedal edema recently. She is not on diuretics. She does think antihypertensives which she missed this morning. Her blood pressure was elevated in the ED and she did receive her morning doses this evening. Her troponin was negative and she did not have tachycardia. She also had no hypotension manage visit the ED. He did have positional dizziness with further vertiginous type and patient was last week. She was initiated on IV transfusion of packed blood cells receiving 2 units. Follow-up hemoglobin is pending. She does feel slightly better. She will be admitted for observation and trending hemoglobins status post transfusion. Heme test stools for occult blood and if positive consider in-hospital surgical consultation. If negative patient can have outpatient workup with EGD and consider repeat colonoscopy with last performed October 2022 revealing polyps no diverticulosis. She is a full code. Review of Systems Narrative: 13 point review of systems otherwise unrevealing or stable. PFSH All Active Problems (Updated 10/11/23 @ 20:16 by Mc Valdez) Acute blood loss anemia (Acute) Thrombocytopenia (Chronic) Symptomatic anemia (Acute) Hx of falling (Acute) Osteoarthritis of carpometacarpal joint of left thumb (Chronic) 40 mg Depo: 04/12/23 Back pain (Acute) Bunion, right foot (Acute) Acquired hammer toe of left foot (Acute) Acquired hammer toe of right foot (Acute) Toe pain, left (Acute) Toe pain, right (Acute) Trigger thumb of right hand (Acute) Chronic obstructive lung disease (Chronic) PFTs September 2020 with FVC of 1.88 (77% predicted), FEV1 of 1.37 (75% predicted) and FEV1/FVC of 73%, TLC 4.70 (103% predicted), DLCO 76% Depressive disorder (Acute) Essential hypertension (Chronic 09/08/13) Hyperlipidemia (Chronic 08/12/12) Non-alcoholic fatty liver disease (Chronic 12/01/12) +ultrasound 2014/persistent elevated transaminases/neg. 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 Kim, [facility] Medical History Generalized osteoarthritis of multiple sites present, but not very bothersome - affects back, hands History of tobacco abuse quit 2014, smoked 1/2 ppd x 50 yrs Nonobstructive atherosclerosis of coronary artery (~05/2021) 05/15/21: Coronary calcium score 331, consistent with heavy atherosclerotic plaque burden and 80th percentile rank based on age race and gender nonobstructive calcified coronary artery disease. Tubular adenoma (~10/2020) Fracture of right distal radius (05/30/20) after a fall at home, tripping injury, managed nonoperatively. Polyp of colon 07/2010; 12/03/12 : multiple polyps including tubular adenomas and pandiverticulosis. 2016:sessile serrated adenoma/ Heart murmur normal echocardiogram Acute gouty arthritis (05/14/17) Diverticulosis of colon without diverticulitis GERD (gastroesophageal reflux disease) Surgical History History of colonoscopy (~10/2020) Hx of breast biopsy Left Status post abdominal hysterectomy Social History Smoking/Tobacco Use Status: Former Tobacco Use tobacco type: cigarettes Quit Date: 06/13/12 Pack-years: 25 Second Hand Exposure: Yes Smoking risk assessment performed?: Yes Alcohol Intake: former Drug use: Never Substance use type: does not use Details: alcohol: t-7 Adopted: Yes Caregiver/Support person: No Household members: spouse Housing: house Number of Children: 2 number of grandchildren: 3 Do you need help understanding health information?: Never Pets and animals: Yes Pets and animals: dog(s) Sexually active: No Do you think of yourself as: straight/heterosexual Current gender identity: female What is your relationship status?: How often do you talk on the phone with friends or family?: twice per week How often do you get together with friends or relatives?: once per week How often do you attend restorationist or catholic services?: 4 or more times per year Do you belong to any clubs or organized social groups?: yes Panel score (0-1 are the most socially isolated patients): 4 What type of physical activity do you participate in: none and decline to answer Duration: 15-30 minutes/day Frequency: 3-4 times per week Jessica/Mormonism: Denominational Special jessica needs: No Agree to transfusion: Yes Seatbelt use: always Drive intox or ride w/intox driver guide: No Do you feel safe at home: Yes Do you feel safe in your relationship?: Yes Victim of physical abuse: No Victim of emotional abuse: No Victim of sexual abuse: No Would you like helpful sources: No Meds Allergies and Home Medications Allergies Allergy/AdvReac Type Severity Reaction Status Date / Time Metronidazole HCl AdvReac Severe stomach Verified 10/11/23 15:50 [From Flagyl] upset amoxicillin [Amoxicillin] AdvReac Intermediate GI UPSET Verified 10/11/23 15:50 clavulanic acid AdvReac Intermediate GI UPSET Verified 10/11/23 15:50 doxycycline AdvReac Intermediate severe Verified 10/11/23 15:50 reflux erythromycin base AdvReac Intermediate Nausea Verified 10/11/23 15:50 [Erythromycin Base] meloxicam AdvReac Intermediate Nausea Verified 10/11/23 15:50 Sulfa (Sulfonamide AdvReac Intermediate NAUSEA AND Verified 10/11/23 15:50 Antibiotics) VOMITING doxycycline AdvReac Other (See Uncoded 10/11/23 15:50 Comment) Home Medications Medication Instructions Recorded Confirmed Type ferrous sulfate 325 mg (65 mg 325 mg PO BID #90 tabs 03/10/21 10/11/23 Rx iron) tablet ketoconazole 2 % topical cream 1 applic topical BID #60 grams 10/09/22 10/11/23 Rx albuterol sulfate 90 mcg/actuation 2 puff inhalation Q6H PRN 11/21/22 10/11/23 Rx aerosol inhaler (ProAir HFA) shortness of breath or wheezing #8.5 grams pantoprazole 40 mg tablet,delayed 40 mg PO DAILY #90 tab-caps 03/22/23 10/11/23 Rx release (Protonix) hydrochlorothiazide 25 mg tablet See Rx Instructions .Route 07/02/23 10/11/23 Rx .COMPLEX #90 tabs lisinopril 40 mg tablet See Rx Instructions .Route 09/26/23 10/11/23 Rx .COMPLEX #90 tabs sertraline 50 mg tablet See Rx Instructions .Route 09/26/23 10/11/23 Rx .COMPLEX #90 tabs nystatin 100,000 unit/gram topical 1 applic topical TID #30 grams 09/27/23 10/11/23 Rx powder Exam Narrative Exam Narrative: General: Patient appears appropriate for age, moderately obese and in no acute distress. She is alert and oriented x 3. HEENT: Normocephalic, eyes with pupils equal and reactive to light symmetrically, extraocular movement intact and sclera anicteric. There is nystagmus to lateral gaze. Oropharynx with moist Koza and fair dentition. Neck: Supple without JVD. Back: Kyphotic without CVA tenderness. Lungs: Bronchovesicular breath sounds diffusely with decreased aeration but no focalizing rales or rhonchi. No expiratory wheeze. No dullness to percussion. Breast: Exam deferred. Heart: Regular rate and rhythm with 3-6 systolic murmur left arm border. No gallop. Abdomen: Obese contour but soft to palpation without guarding or rebound. No palpable hepatosplenomegaly. Bowel sounds positive and normoactive in all quadrants. Genitalia/rectal: Exam deferred. Occult blood stool samples ordered. Extremities: Nonpitting edema over ankles and feet, no clubbing or cyanosis. Bruising over extremities with some varicose veins in lower extremities. Fair capillary refill. Skin: Pale, warm and dry with bruising as mentioned. Neuro: Cranial nerves II through XII gross intact, no focal motor deficits. No tremor. Romberg testing not performed the patient sat up comfortably in bed without feeling dizzy. Psych: Normal affect and mood. No abnormal thought processes. Remote and recent memory intact. Results Imaging Imaging Studies: EXAM: CT HEAD WO CLINICAL HISTORY: History of falling. TECHNIQUE: Imaging Protocol: Axial computed tomography images with coronal and sagittal reformatted images were created and reviewed COMPARISON: CT CT HEAD WO from 11/26/2020 FINDINGS: There is significant patient motion artifact limiting the examination. Ventricles and Extra axial spaces: Normal in size and morphology for the patient's age. Hemorrhage: None. Cerebral parenchyma: There are areas of decreased attenuation in the white matter likely reflecting chronic microvascular ischemic disease. Midline shift: None. Brainstem/Cerebellum: Normal. Calvarium: Normal. Visualized Paranasal sinuses/Mastoids: Clear. Soft Tissues: Unremarkable. IMPRESSION: 1. Suboptimal examination secondary to patient motion artifact. 2. No evidence of a skull fracture. No large hemorrhage is seen. Small subdural or subarachnoid hemorrhage may be missed secondary to the patient's motion artifact. 3. Age-related cerebral atrophy and small vessel ischemic disease. Small infarct may be missed secondary to patient's motion artifact. Exam(s) CT CHEST PE ABD PELVIS W CT THORACIC LUMBAR SPINE REC EXAM: CT CHEST PE ABD PELVIS W CLINICAL HISTORY: Left-sided bruising anemia. TECHNIQUE: Imaging Protocol: Axial CT angiography was performed with multi- slice acquisition and multi-planar and/or 3D reconstructions. CONTRAST MATERIAL: Intravenous: Omnipaque 350contrast volume:100 mL COMPARISON: CT RENAL COLIC WO CONTRAST from 11/24/2016 CT,NM,TMT NM MPI REST STRESS GRP from 02/02/[address] CHEST W from 03/07/2021 FINDINGS: CHEST: Tracheobronchial tree: Patent where visualized. Pulmonary parenchyma: There is a stable 5 mm nodule in the left lower lobe (series 9, image 446). There is a nodule also seen in the left lingula which now measures 1.0 cm compared to 0.8 cm on the prior examination. (Series 9, image 356). The nodule is fat density may represent hamartoma. There is a stable 5 mm nodule in the medial aspect of the right lower lobe (series 9, image 376). There is a stable 4 mm nodule in the medial aspect of the right upper lobe (series 9, image 184). No focal consolidating infiltrates are seen. There is scarring in the left lower lobe. Pulmonary Arteries: No evidence of filling defect to suggest pulmonary emboli. Mediastinum and Jyothi: No dominant adenopathy or fluid collection. The esophagus is unremarkable. Visualized thyroid gland: Unremarkable. Pleura: No effusion or pneumothorax. Heart: The heart is not dilated. Coronary artery calcification is present. No pericardial effusion. Aorta: Thoracic aorta non-dilated. No evidence of dissection. Atherosclerotic calcification is present. Bones: Within normal limits for the patient's age. No displaced rib fractures are seen. Soft tissues: Unremarkable. Thoracic spine recons: There are degenerative changes seen in the thoracic spine. No acute fracture or subluxation is seen in the thoracic spine. ABDOMEN: Liver: There is a nodular contour of the liver suggesting hepatic cirrhosis. The liver is enlarged. No measurable mass. Portal, Superior Mesenteric, and Splenic Veins: Unremarkable. Gallbladder and Biliary Tract: No radiodense calculus or dilation. Pancreas: Normal density, no abnormal calcifications or inflammatory process. Spleen: Splenomegaly. Adrenals: No masses seen. Kidneys: Normal size, contour and axis. No radiodense stones or obstructive uropathy. There is a simple cyst in the right kidney. No follow-up is recommended. Abdominal Aorta: Abdominal portion non-dilated. Atherosclerotic calcification is present. Bowel: There is diverticulosis of the colon without evidence of acute diverticulitis. No evidence of bowel wall thickening or obstruction. Normal appendix. Peritoneal Cavity: Small amount of perihepatic ascites. No free air. Lymph Nodes: Within normal limits. Bones: Within normal limits for the patient's age. Soft Tissues: Unremarkable. Lumbar spine recons: Degenerative changes are seen in the lumbar spine. No acute fracture or subluxation is seen. PELVIS: Bladder: Symmetric distention, no gross wall thickening. Reproductive Organs: Status post hysterectomy. Lymph Nodes: Within normal limits. Bones: Within normal limits. IMPRESSION: 1. No evidence pulmonary embolism, thoracic aortic dissection or aneurysm. 2. Stable pulmonary nodules. 3. No acute pulmonary process. 4. No acute abdominal or pelvic process. 5. Findings of hepatic cirrhosis and hepatosplenomegaly. Small perihepatic ascites. 6. No acute fracture or subluxation in the thoracic or lumbar spine. EXAM: CT CHEST PE ABD PELVIS W CLINICAL HISTORY: Left-sided bruising anemia. TECHNIQUE: Imaging Protocol: Axial CT angiography was performed with multi- slice acquisition and multi-planar and/or 3D reconstructions. CONTRAST MATERIAL: Intravenous: Omnipaque 350contrast volume:100 mL COMPARISON: CT RENAL COLIC WO CONTRAST from 11/24/2016 CT,NM,TMT NM MPI REST STRESS GRP from 02/02/[address] CHEST W from 03/07/2021 FINDINGS: CHEST: Tracheobronchial tree: Patent where visualized. Pulmonary parenchyma: There is a stable 5 mm nodule in the left lower lobe (series 9, image 446). There is a nodule also seen in the left lingula which now measures 1.0 cm compared to 0.8 cm on the prior examination. (Series 9, image 356). The nodule is fat density may represent hamartoma. There is a stable 5 mm nodule in the medial aspect of the right lower lobe (series 9, image 376). There is a stable 4 mm nodule in the medial aspect of the right upper lobe (series 9, image 184). No focal consolidating infiltrates are seen. There is scarring in the left lower lobe. Pulmonary Arteries: No evidence of filling defect to suggest pulmonary emboli. Mediastinum and Jyothi: No dominant adenopathy or fluid collection. The esophagus is unremarkable. Visualized thyroid gland: Unremarkable. Pleura: No effusion or pneumothorax. Heart: The heart is not dilated. Coronary artery calcification is present. No pericardial effusion. Aorta: Thoracic aorta non-dilated. No evidence of dissection. Atherosclerotic calcification is present. Bones: Within normal limits for the patient's age. No displaced rib fractures are seen. Soft tissues: Unremarkable. Thoracic spine recons: There are degenerative changes seen in the thoracic spine. No acute fracture or subluxation is seen in the thoracic spine. ABDOMEN: Liver: There is a nodular contour of the liver suggesting hepatic cirrhosis. The liver is enlarged. No measurable mass. Portal, Superior Mesenteric, and Splenic Veins: Unremarkable. Gallbladder and Biliary Tract: No radiodense calculus or dilation. Pancreas: Normal density, no abnormal calcifications or inflammatory process. Spleen: Splenomegaly. Adrenals: No masses seen. Kidneys: Normal size, contour and axis. No radiodense stones or obstructive uropathy. There is a simple cyst in the right kidney. No follow-up is recommended. Abdominal Aorta: Abdominal portion non-dilated. Atherosclerotic calcification is present. Bowel: There is diverticulosis of the colon without evidence of acute diverticulitis. No evidence of bowel wall thickening or obstruction. Normal appendix. Peritoneal Cavity: Small amount of perihepatic ascites. No free air. Lymph Nodes: Within normal limits. Bones: Within normal limits for the patient's age. Soft Tissues: Unremarkable. Lumbar spine recons: Degenerative changes are seen in the lumbar spine. No acute fracture or subluxation is seen. PELVIS: Bladder: Symmetric distention, no gross wall thickening. Reproductive Organs: Status post hysterectomy. Lymph Nodes: Within normal limits. Bones: Within normal limits. IMPRESSION: 1. No evidence pulmonary embolism, thoracic aortic dissection or aneurysm. 2. Stable pulmonary nodules. 3. No acute pulmonary process. 4. No acute abdominal or pelvic process. 5. Findings of hepatic cirrhosis and hepatosplenomegaly. Small perihepatic ascites. 6. No acute fracture or subluxation in the thoracic or lumbar spine. Labs 10/11/23 15:50 10/11/23 15:50 Labs: Laboratory Results - last 24 hr 10/11/23 10/11/23 15:50 16:10 WBC 3.14 L RBC 2.84 L Hgb 5.6 L* Hct 21.0 L MCV 74 L MCH 19.7 L MCHC 26.7 L RDW 18.6 H Plt Count 88 L MPV Immature Gran % 0.3 Neutrophils % 64.4 Lymphocytes % 25.8 Monocytes % 6.7 Eosinophils % 2.2 Basophils % 0.6 Nucleated RBC % 0.0 Absolute Neutrophils 2.02 Absolute Lymphocytes 0.81 L Absolute Monocytes 0.21 Absolute Eosinophils 0.07 Absolute Basophils 0.02 RBC Morphology See Below Hypochromasia 2+ Poikilocytosis 1+ Anisocytosis 1+ Microcytosis 1+ Sodium 142 Potassium 3.5 Chloride 106 Carbon Dioxide 27.3 Anion Gap 8.7 BUN 18 Creatinine 0.9 Est GFR (CKD-EPI 2020) 65.44 Glucose 110 H Calcium 9.1 Total Bilirubin 1.4 H AST 23 ALT 31 Alkaline Phosphatase 90 Lactate Dehydrogenase 176 Troponin I < 50 Total Protein 7.1 Albumin 4.0 ABO/Rh O Negative Antibody Screen NEGATIVE Crossmatch See Detail Last Vital Signs Temp 36.9 C 10/11/23 18:59 Pulse 65 10/11/23 18:59 Resp 16 10/11/23 18:59 BP 166/36 H 10/11/23 18:59 Pulse Ox 96 10/11/23 18:59 Time Spent Time spent with Patient: >75 minutes Time was spent: preparing to see the patient(eg.review tests), obtaining and/or reviewing separately otained hiistory, ordering medications,tests, procedures, referring, communicating with other health wound care nurse, indepentently interpreting results and care coordination
[2023-10-11 20:04] LABS: INR 1.1 (0.9-1.1); PTT Activated 26.5 sec (23.6-32.8); Prothrombin Time 11.4 sec (9.1-11.1)
[2023-10-11] MEDS: Acetaminophen 500 MG TAB (20:35)
[2023-10-11] MEDS: Lisinopril 10 MG TAB (21:14)
[2023-10-11] MEDS: hydroCHLOROthiazide 25 MG TAB PO (21:15)
--- NOTE | 2023-10-11 21:49 | NUR.NOTE ---
Nursing Note: pateint incon. lg watery stool. x2 Rn performed pericare. patient tolerated well.
[2023-10-11 22:15] LABS: Iron 25 ug/dL (50-170)
[2023-10-11 22:32] LABS: Ferritin 12 ng/mL (8-252); Folate 10.6 ng/mL (8.6-20.0)
[2023-10-11 22:51] LABS: Vitamin B12 179 pg/mL (193-986)
[2023-10-11] MEDS: traMADol 50 MG TAB 25 MG PO (23:15)
[2023-10-12 00:22] LABS: HCT 25.9 % (36.0-46.0); MCH 21.9 pg (27.0-33.0); MCV 76 fL (80-95); RBC 3.43 10^6/uL (3.93-5.22); RDW 18.4 % (11.7-14.6); RDW-SD 49.9 fL; WBC 3.64 10^3/uL (4.4-10.8)
[2023-10-12 00:24] LABS: Platelet Count 87 10^3/uL (130-400)
[2023-10-12 00:25] LABS: HGB 7.5 g/dL (11.2-15.7)
[2023-10-12 00:33] VITALS: BP 164/62; PULSE 65; RESP 18; TEMP 37.1; O2SAT 95
[2023-10-12 07:29] LABS: INR 1.2 (0.9-1.1); Prothrombin Time 11.5 sec (9.1-11.1)
[2023-10-12 07:31] LABS: ALT 30 U/L (14-59); AST 23 U/L (15-37); Albumin 3.4 g/dL (3.4-5.0); Alkaline Phosphatase 83 U/L (46-116); Anion Gap 10.4 mmol/L (3-11); BUN 16 mg/dL (7-18); Bilirubin, Total 1.8 mg/dL (0.2-1.0); CO2 26.6 mmol/L (21.0-32.0); CREATININE 0.8 mg/dL (0.55-1.02); Calcium 8.5 mg/dL (8.5-10.1); Chloride 107 mmol/L (98-107); Estimated GFR 75.37 (mL/min/1.73m2); Glucose 102 mg/dL (74-106); Potassium 3.4 mmol/L (3.5-5.1); Sodium 144 mmol/L (136-145); Total Protein 6.5 g/dL (6.4-8.2)
[2023-10-12 07:52] VITALS: BP 135/69; PULSE 60; RESP 15; TEMP 36.8; O2SAT 95
[2023-10-12] MEDS: Pantoprazole 40 MG TABCR PO (08:57)
[2023-10-12] MEDS: hydroCHLOROthiazide 25 MG TAB PO (08:57)
[2023-10-12] MEDS: Lisinopril 20 MG TAB 40 MG PO (08:58)
[2023-10-12] MEDS: Ferrous Sulfate 325 MG TAB PO ×2 (08:58→20:05)
[2023-10-12] MEDS: Sertraline 50 MG TAB PO (08:58)
[2023-10-12] MEDS: Normal Saline Flush 10 ML SYR IVP ×2 (09:04→20:06)
--- NOTE | 2023-10-12 09:21 | SCONE_ITS ---
Date of service: 10/12/23 Time of Service: 09:21 Assessment and Plan Assessment and plan (1) Acute blood loss anemia: Status: Acute Assessment and plan: 78-year-old woman with subacute/chronic anemia. No clinical signs to suggest a rapid bleed. It is not even clear where the bleeding would be coming from since she denies any bowel habit changes. She certainly has not seen any blood from either upper or lower orifices. She had a colonoscopy only 3 years ago. She is probably due for another 1 but I do not think it is very urgent and this can be done on an outpatient basis after she is resuscitated, rehydrated, her anemia is improved and her platelet count improves. In the absence of any melanotic stools or seeing blood per rectum, the possibility of this being a lower GI source is unlikely. She can tolerate an EGD easily enough and we can do this on Saturday. I prepared the patient, and her daughter at the bedside, for the possibility that we do not find any results. Namely, that we assess her foregut and it looks perfect and healthy. On the flip side, she might have esophageal varices related to chronic liver disease or she may have an ulcer or even a gastric cancer. I think is worthwhile to look in her foregut before discharge. If we find an answer, then her colonoscopy can definitely be deferred until she is a little bit healthier and more stable and wants to plan it. If the EGD is normal, then we can plan to do an outpatient colonoscopy in the next 3 to 4 weeks when she is resuscitated and clinically improved. Overall plan: N.p.o. Saturday night, EGD Saturday Probably can be discharged home afterwards All other care per the hospitalist team History of Present Illness Narrative: 78-year-old woman has been feeling weak and falling at home for a couple of weeks. She denies denies seeing any blood anywhere. She has not noticed a change in her bowel habits and does not notice black or dark stools. She definitely has not vomited any blood. She has no abdominal pain. Her only complaint this morning is feeling hungry. She has a history of colonoscopies with the most recent being 3 years ago and had sessile serrated adenomas removed. She has never had an upper endoscopy that I can tell or that she recalls. She denies any epigastric pain. There is report that she had a consult with hepatology regarding some degree of SAENZ. It sounds like she was recommended to have an upper endoscopy but never followed through with that. [facility] All Active Problems (Updated 10/11/23 @ 20:16 by Mc Valdez) Acute blood loss anemia (Acute) Thrombocytopenia (Chronic) Symptomatic anemia (Acute) Hx of falling (Acute) Osteoarthritis of carpometacarpal joint of left thumb (Chronic) 40 mg Depo: 04/12/23 Back pain (Acute) Bunion, right foot (Acute) Acquired hammer toe of left foot (Acute) Acquired hammer toe of right foot (Acute) Toe pain, left (Acute) Toe pain, right (Acute) Trigger thumb of right hand (Acute) Chronic obstructive lung disease (Chronic) PFTs September 2020 with FVC of 1.88 (77% predicted), FEV1 of 1.37 (75% predicted) and FEV1/FVC of 73%, TLC 4.70 (103% predicted), DLCO 76% Depressive disorder (Acute) Essential hypertension (Chronic 09/08/13) Hyperlipidemia (Chronic 08/12/12) Non-alcoholic fatty liver disease (Chronic 12/01/12) +ultrasound 2014/persistent elevated transaminases/neg. 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 Kim, [facility] Medical History Generalized osteoarthritis of multiple sites present, but not very bothersome - affects back, hands History of tobacco abuse quit 2014, smoked 1/2 ppd x 50 yrs Nonobstructive atherosclerosis of coronary artery (~05/2021) 05/15/21: Coronary calcium score 331, consistent with heavy atherosclerotic plaque burden and 80th percentile rank based on age race and gender nonobstructive calcified coronary artery disease. Tubular adenoma (~10/2020) Fracture of right distal radius (05/30/20) after a fall at home, tripping injury, managed nonoperatively. Polyp of colon 07/2010; 12/03/12 : multiple polyps including tubular adenomas and pandiverticulosis. 2016:sessile serrated adenoma/ Heart murmur normal echocardiogram Acute gouty arthritis (05/14/17) Diverticulosis of colon without diverticulitis GERD (gastroesophageal reflux disease) Surgical History History of colonoscopy (~10/2020) Hx of breast biopsy Left Status post abdominal hysterectomy Social History Smoking/Tobacco Use Status: Former Tobacco Use tobacco type: cigarettes Quit Date: 06/13/12 Pack-years: 25 Second Hand Exposure: Yes Smoking risk assessment performed?: Yes Alcohol Intake: former Drug use: Never Substance use type: does not use Details: alcohol: t-7 Adopted: Yes Caregiver/Support person: No Household members: spouse Housing: house Number of Children: 2 number of grandchildren: 3 Do you need help understanding health information?: Never Pets and animals: Yes Pets and animals: dog(s) Sexually active: No Do you think of yourself as: straight/heterosexual Current gender identity: female What is your relationship status?: How often do you talk on the phone with friends or family?: twice per week How often do you get together with friends or relatives?: once per week How often do you attend scientology or baptist services?: 4 or more times per year Do you belong to any clubs or organized social groups?: yes Panel score (0-1 are the most socially isolated patients): 4 What type of physical activity do you participate in: none and decline to answer Duration: 15-30 minutes/day Frequency: 3-4 times per week Jessica/Evangelical: Scientology Special jessica needs: No Agree to transfusion: Yes Seatbelt use: always Drive intox or ride w/intox parts driver: No Do you feel safe at home: Yes Do you feel safe in your relationship?: Yes Victim of physical abuse: No Victim of emotional abuse: No Victim of sexual abuse: No Would you like helpful sources: No Exam Narrative Exam Narrative: General: Nontoxic, comfortable and interactive. Obese. Neuro: Alert and oriented x 3 Psych: Reasonable mood and affect as well as seemingly good insight and understanding into her conditions Abdomen: Soft, nondistended and nontender. Heart: Regular Chest: Nonlabored breathing Results Last Vital Signs Temp 98.2 F 10/12/23 07:52 Pulse 60 10/12/23 07:52 Resp 15 10/12/23 07:52 BP 135/69 10/12/23 07:52 Pulse Ox 95 10/12/23 07:52 Labs 10/12/23 12:20 10/12/23 06:35 Labs: Laboratory Results - last 24 hr 10/11/23 10/11/23 10/11/23 15:50 16:10 19:38 WBC 3.14 L RBC 2.84 L Hgb 5.6 L* Hct 21.0 L MCV 74 L MCH 19.7 L MCHC 26.7 L RDW 18.6 H Plt Count 88 L MPV Immature Gran % 0.3 Neutrophils % 64.4 Lymphocytes % 25.8 Monocytes % 6.7 Eosinophils % 2.2 Basophils % 0.6 Nucleated RBC % 0.0 Absolute Neutrophils 2.02 Absolute Lymphocytes 0.81 L Absolute Monocytes 0.21 Absolute Eosinophils 0.07 Absolute Basophils 0.02 RBC Morphology See Below Hypochromasia 2+ Poikilocytosis 1+ Anisocytosis 1+ Microcytosis 1+ PT 11.4 H INR 1.1 APTT 26.5 VBG Lactate 0.9 Sodium 142 Potassium 3.5 Chloride 106 Carbon Dioxide 27.3 Anion Gap 8.7 BUN 18 Creatinine 0.9 Est GFR (CKD-EPI 2020) 65.44 Glucose 110 H Calcium 9.1 Magnesium Iron 25 L Ferritin 12 Total Bilirubin 1.4 H AST 23 ALT 31 Alkaline Phosphatase 90 Lactate Dehydrogenase 176 Troponin I < 50 Total Protein 7.1 Albumin 4.0 Vitamin B12 179 L Folate 10.6 ABO/Rh O Negative Antibody Screen NEGATIVE Crossmatch See Detail 10/12/23 10/12/23 00:15 06:35 WBC 3.64 L RBC 3.43 L Hgb 7.5 L Hct 25.9 L MCV 76 L MCH 21.9 L MCHC 29.0 L D RDW 18.4 H Plt Count 87 L MPV Immature Gran % Neutrophils % Lymphocytes % Monocytes % Eosinophils % Basophils % Nucleated RBC % Absolute Neutrophils Absolute Lymphocytes Absolute Monocytes Absolute Eosinophils Absolute Basophils RBC Morphology Hypochromasia Poikilocytosis Anisocytosis Microcytosis PT 11.5 H INR 1.2 H APTT VBG Lactate Sodium 144 Potassium 3.4 L Chloride 107 Carbon Dioxide 26.6 Anion Gap 10.4 BUN 16 Creatinine 0.8 Est GFR (CKD-EPI 2020) 75.37 Glucose 102 Calcium 8.5 Magnesium 2.0 Iron Ferritin Total Bilirubin 1.8 H AST 23 ALT 30 Alkaline Phosphatase 83 Lactate Dehydrogenase Troponin I Total Protein 6.5 Albumin 3.4 Vitamin B12 Folate ABO/Rh Antibody Screen Crossmatch
[2023-10-12 11:47] VITALS: BP 156/66; PULSE 59; RESP 14; TEMP 36.8; O2SAT 95
[2023-10-12 12:30] LABS: HCT 26.2 % (36.0-46.0)
[2023-10-12 12:33] LABS: HGB 7.6 g/dL (11.2-15.7)
[2023-10-12] MEDS: POTASSIUM CHLORIDE 20 MEQ/100 ML BAG 50 MEQ IVINF (12:52)
[2023-10-12] MEDS: Potassium Chloride 20 MEQ TABCR 40 MEQ PO (12:53)
[2023-10-12] MEDS: Nystatin POWDER 15 GM JAR TP ×2 (14:54→20:05)
--- NOTE | 2023-10-12 17:21 | INITIAL_ITS ---
Date of service: 10/12/23 Time of Service: 17:33 Care Management Initial Assmt Initial Assessment Reason for Hospitalization: Acute anemia with frequent falls, SAENZ Functional Status/Living Situation Patient Presentation: Ariella was sitting up in bed when CM met with her, visiting with her daughter, Lizette. She was pleasant and engaged well in conversation. She stated that per MD, she would likely remain at [facility] to have an EGD on Saturday, as it is not available on the weekend. During the conversation, Ariella displayed some difficulty recalling information, such as her daughter's last name, and her dog's name. Lizette, her daughter, expressed concern about this, and she stated that she has been noticing this change in her recall/cognition recently. Ariella stated that she is very independent, although she has been falling frequently. PT has been consulted to evaluate her for any additional needs. Ariella feels that she will not require services upon discharge, but is open to discussing it, if indicated. She reported that she would prefer to be home, but she is comfortable remaining inpatient while being treated medically. CM will continue to follow. Town of Residence: [place] Resides with: Spouse (Og) Significant Other/Family: Local Natural Supports: Ariella has two daughters, Lizette and Mary, as well as three grand children- Jj, Rachel and Mary. Employment Status: Retired Instrumental Activities of Daily Living (ADLs): Independent Medications Medication Management: No Issues/Barriers identified Advance Directives Advance Directives: Do you have an Advance Directive: N 09/05/12 11:41 AD On File at [facility]: N 08/01/12 07:51 Date Asked 04/20/23 06/06/23 12:31 AD Date Reviewed 10/11/23 10/11/23 20:28 COLST On File at [facility] COLST Date Scanned Code Status Resuscitation Status Full Code Insurance Coverage/Financial Issues Insurance: [employer] MCR replacement ACO Member: No Care Team Visit Care Team Role Provider Type Rachel Cortez, QUIRINO Primary Care Provider NURSE PRACTITIONER Oscar Bianchi MD Other Providers [facility] STAFF PHYSICIAN InPatient Titus Langston Other Providers OTHER Donald Mata MD Emergency Provider [facility] STAFF PHYSICIAN Mc Valdez Admit Provider NON-[facility] STAFF PHYSICIAN Attending Provider Discharge Potential Discharge Needs: Consult Consult Services Needed: Other (surgical), Imaging/labs, PT Evaluation and Other (possible EGD) Anticipated Barriers to Discharge: Medical Status Patient/Family Education Needs: Review discharge instructions, discuss Ask Me Three Transportation: Private vehicle Plan: Anticipate Ariella will return home once medically cleared. She will have a PT evaluation prior to discharge, and may require an EGD while inpatient. She will follow up with his PCP and discharge plan of care. CM will continue to follow. PFSH All Active Problems (Updated 10/11/23 @ 20:16 by Mc Valdez) Acute blood loss anemia (Acute) Thrombocytopenia (Chronic) Symptomatic anemia (Acute) Hx of falling (Acute) Osteoarthritis of carpometacarpal joint of left thumb (Chronic) 40 mg Depo: 04/12/23 Back pain (Acute) Bunion, right foot (Acute) Acquired hammer toe of left foot (Acute) Acquired hammer toe of right foot (Acute) Toe pain, left (Acute) Toe pain, right (Acute) Trigger thumb of right hand (Acute) Chronic obstructive lung disease (Chronic) PFTs September 2020 with FVC of 1.88 (77% predicted), FEV1 of 1.37 (75% predicted) and FEV1/FVC of 73%, TLC 4.70 (103% predicted), DLCO 76% Depressive disorder (Acute) Essential hypertension (Chronic 09/08/13) Hyperlipidemia (Chronic 08/12/12) Non-alcoholic fatty liver disease (Chronic 12/01/12) +ultrasound 2014/persistent elevated transaminases/neg. 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 Kim, [facility] Medical History Generalized osteoarthritis of multiple sites present, but not very bothersome - affects back, hands History of tobacco abuse quit 2014, smoked 1/2 ppd x 50 yrs Nonobstructive atherosclerosis of coronary artery (~05/2021) 05/15/21: Coronary calcium score 331, consistent with heavy atherosclerotic plaque burden and 80th percentile rank based on age race and gender non obstructive calcified coronary artery disease. Tubular adenoma (~10/2020) Fracture of right distal radius (05/30/20) after a fall at home, tripping injury, managed nonoperatively. Polyp of colon 07/2010; 12/03/12 : multiple polyps including tubular adenomas and pandiverticulosis. 2016:sessile serrated adenoma/ Heart murmur normal echocardiogram Acute gouty arthritis (05/14/17) Diverticulosis of colon without diverticulitis GERD (gastroesophageal reflux disease) Surgical History History of colonoscopy (~10/2020) Hx of breast biopsy Left Status post abdominal hysterectomy Social History Smoking/Tobacco Use Status: Former Tobacco Use tobacco type: cigarettes Quit Date: 06/13/12 Pack-years: 25 Second Hand Exposure: Yes Smoking risk assessment performed?: Yes Alcohol Intake: former Drug use: Never Substance use type: does not use Details: alcohol: t-7 Adopted: Yes Caregiver/Support person: No Household members: spouse Housing: house Number of Children: 2 number of grandchildren: 3 Do you need help understanding health information?: Never Pets and animals: Yes Pets and animals: dog(s) Sexually active: No Do you think of yourself as: straight/heterosexual Current gender identity: female What is your relationship status?: How often do you talk on the phone with friends or family?: twice per week How often do you get together with friends or relatives?: once per week How often do you attend pentecostal or jew services?: 4 or more times per year Do you belong to any clubs or organized social groups?: yes Panel score (0-1 are the most socially isolated patients): 4 What type of physical activity do you participate in: none and decline to answer Duration: 15-30 minutes/day Frequency: 3-4 times per week Jessica/Amish: Zoroastrianism Special jessica needs: No Agree to transfusion: Yes Seatbelt use: always Drive intox or ride w/intox drivers' cash clerk: No Do you feel safe at home: Yes Do you feel safe in your relationship?: Yes Victim of physical abuse: No Victim of emotional abuse: No Victim of sexual abuse: No Would you like helpful sources: No SDOH(Care Management) Screening Will the Patient Participate in the Screening?: Yes Do you worry about having a steady place to live?: no Problems where you live: no known problems In the past 12 months, have you had to go without electric, gas, oil or water in your home?: no Have you or anyone in your house had to go without enough food to eat?: no Has lack of transportation kept you from medical appointments or from doing things needed for daily living?: no Has anyone in your support network made you feel unsafe for any reason?: no
--- NOTE | 2023-10-12 17:55 | W.PM.PROGNOT ---
Date of Service Date of service: 10/12/23 Time of Service: 17:55 Assessment and Plan Assessment and plan (1) Acute blood loss anemia: Status: Acute Assessment and plan: Received 2 untis of blood in ED. This am hgb 7.9; recheck @ 1800 and trend History of esophageal varices and no reported history of upper GI bleed. History of lower GI bleeding with a history of colon polyps last colonoscopy 2022. Surgery consulted - will be NPO after midnight 10/12 - EGD 10/13 - patient in agreement She can eat until then Denies maite blood or dark blood from rectum, no vomiting Hemacult pending Urine pending (2) Hx of falling: Start date: 10/11/23 Status: Acute Assessment and plan: Negative CT of her head because of recent falls. Imaging of the chest and thoracic spine as well as abdomen also negative for any injuries from her falls (3) Non-alcoholic fatty liver disease: Status: Chronic Assessment and plan: PT/INR slightly elevated liver function test normal but continued thrombocytopenia which is not severe and slightly elevated bilirubin. Trend labs while hospitalized. (4) Thrombocytopenia: Status: Chronic Assessment and plan: No DVT prophylaxis with Lovenox or heparin in setting of anemia SCD (5) Essential hypertension: Status: Chronic Assessment and plan: Continue antihtn and monitor blood pressure. (6) Chronic obstructive lung disease: Status: Chronic Assessment and plan: Continue albuterol nebulizer as needed Qualifiers: COPD type: chronic bronchitis Chronic bronchitis type: simple Qualified Code(s): J41.0 - Simple chronic bronchitis Subjective Subjective Patient reports: no new complaints, tolerating a regular diet, voiding w/o difficulty and bowel movement; denies diarrhea or vomiting Exam Narrative Exam Narrative: Const: Obese elderly female in NAD. HEENT: Normal facial exam. Eyes: Normal conjunctiva and sclera. Neck: Supple. Trachea midline. Lungs: Normal respiratory effort. Cor: RRR without murmur/gallop. Good radial pulses. GI: Soft. NT/ND. No guarding or rebound. Neuro: A+O x 3. Normal speech, mentation, gait. Cranial nerves II - XII grossly intact. No gross motor or sensory deficit. Ext: No edema, bilateral strength equal 5/5 Skin: Warm and dry without rash. Objective Last Vital Signs Temp 36.8 C 10/12/23 11:47 Pulse 59 L 10/12/23 11:47 Resp 14 10/12/23 11:47 BP 156/66 H 10/12/23 11:47 Pulse Ox 95 10/12/23 11:47 Laboratory Results - last 24 hr 10/11/23 10/11/23 10/12/23 16:10 19:38 00:15 WBC 3.64 L RBC 3.43 L Hgb 7.5 L Hct 25.9 L MCV 76 L MCH 21.9 L MCHC 29.0 L D RDW 18.4 H Plt Count 87 L MPV PT 11.4 H INR 1.1 APTT 26.5 VBG Lactate 0.9 Sodium Potassium Chloride Carbon Dioxide Anion Gap BUN Creatinine Est GFR (CKD-EPI 2020) Glucose Calcium Magnesium Iron 25 L Ferritin 12 Total Bilirubin AST ALT Alkaline Phosphatase Total Protein Albumin Vitamin B12 179 L Folate 10.6 ABO/Rh O Negative Antibody Screen NEGATIVE Crossmatch See Detail 10/12/23 10/12/23 06:35 12:20 WBC RBC Hgb 7.6 L Hct 26.2 L MCV MCH MCHC RDW Plt Count MPV PT 11.5 H INR 1.2 H APTT VBG Lactate Sodium 144 Potassium 3.4 L Chloride 107 Carbon Dioxide 26.6 Anion Gap 10.4 BUN 16 Creatinine 0.8 Est GFR (CKD-EPI 2020) 75.37 Glucose 102 Calcium 8.5 Magnesium 2.0 Iron Ferritin Total Bilirubin 1.8 H AST 23 ALT 30 Alkaline Phosphatase 83 Total Protein 6.5 Albumin 3.4 Vitamin B12 Folate ABO/Rh Antibody Screen Crossmatch Time Spent with Patient Time Spent with Patient: 25-34 minutes Time was spent: preparing to see the patient(eg.review tests), ordering medications,tests, procedures, referring, communicating with other health healthcare representative, indepentently interpreting results, counseling the patient and care coordination
[2023-10-12 20:01] VITALS: BP 183/52; PULSE 60; RESP 16; TEMP 36.5; O2SAT 95
[2023-10-12] MEDS: Acetaminophen 325 MG TAB PO (20:05)
[2023-10-12 20:16] LABS: HCT 26.5 % (36.0-46.0); HGB 7.6 g/dL (11.2-15.7)
[2023-10-12 23:17] VITALS: BP 168/53; PULSE 61; RESP 16; TEMP 36.7; O2SAT 95
[2023-10-13] VITALS (7 sets, daily range): BP systolic 146–191; BP diastolic 45–70; PULSE 58–67; RESP 16–18; TEMP 36.5–37; O2SAT 94–96
[2023-10-13 07:06] LABS: Abs Immature Grans 0.01 10^3/uL (0.0-0.06); Absolute Basophil Count 0.03 10^3/uL (0.0-0.2); Absolute Eosinophil Count 0.13 10^3/uL (0.0-0.7); Absolute Lymphocyte Count 0.86 10^3/uL (1.2-3.4); Absolute Monocyte Count 0.27 10^3/uL (0.1-0.8); Absolute Neutrophil Count 1.94 10^3/uL (1.2-6.7); Basophils % 0.9 %; HGB 7.4 g/dL (11.2-15.7); Immature Grans % 0.3 %; Lymphocytes % 26.5 %; MCH 21.7 pg (27.0-33.0); MCHC 28.5 % (32.0-36.0); MCV 76 fL (80-95); Monocytes % 8.3 %; RBC 3.41 10^6/uL (3.93-5.22); RDW 18.6 % (11.7-14.6); RDW-SD 51.5 fL; WBC 3.24 10^3/uL (4.4-10.8)
[2023-10-13 07:19] LABS: Anion Gap 7.8 mmol/L (3-11); BUN 11 mg/dL (7-18); CO2 28.2 mmol/L (21.0-32.0); CREATININE 0.9 mg/dL (0.55-1.02); Chloride 108 mmol/L (98-107); Estimated GFR 65.44 (mL/min/1.73m2); Glucose 106 mg/dL (74-106); Potassium 3.9 mmol/L (3.5-5.1); Sodium 144 mmol/L (136-145)
[2023-10-13 07:34] LABS: Platelet Count 81 10^3/uL (130-400)
[2023-10-13 07:35] LABS: Diff Comment Diff Reviewed; Hypochromasia 1+; Microcytosis 1+
[2023-10-13] MEDS: Pantoprazole 40 MG TABCR PO (07:53)
[2023-10-13] MEDS: hydroCHLOROthiazide 25 MG TAB PO (07:53)
[2023-10-13] MEDS: Normal Saline Flush 10 ML SYR IVP ×2 (07:54→21:52)
[2023-10-13] MEDS: Lisinopril 20 MG TAB 40 MG PO (07:54)
[2023-10-13] MEDS: Sertraline 50 MG TAB PO (07:54)
[2023-10-13] MEDS: Nystatin POWDER 15 GM JAR TP (07:54)
[2023-10-13] MEDS: Ferrous Sulfate 325 MG TAB PO ×2 (07:54→21:35)
[2023-10-13] MEDS: Ketoconazole 2% CREAM 15 GM TUBE TP (07:55)
--- NOTE | 2023-10-13 09:11 | W.PM.PROGNOT ---
Date of Service Date of service: 10/13/23 Time of Service: 09:11 Assessment and Plan Assessment and plan (1) Acute blood loss anemia: Status: Acute Assessment and plan: Hgb today 7.4; monitor Surgery consulted - will be NPO after midnight 10/12 - EGD 10/13 - patient in agreement She can eat until then Denies maite blood or dark blood from rectum, no vomiting Hemocult pending (2) Hx of falling: Start date: 10/11/23 Status: Acute Assessment and plan: Negative CT of her head. Imaging of the chest and thoracic spine as well as abdomen also negative for any injuries from her falls (3) Non-alcoholic fatty liver disease: Status: Chronic Assessment and plan: PT/INR slightly elevated liver function test normal but continued thrombocytopenia which is not severe and slightly elevated bilirubin. Trend labs while hospitalized. (4) Thrombocytopenia: Status: Chronic Assessment and plan: No DVT prophylaxis with Lovenox or heparin in setting of anemia SCD (5) Essential hypertension: Status: Chronic Assessment and plan: Continue antihtn and monitor blood pressure. (6) Chronic obstructive lung disease: Status: Chronic Assessment and plan: Continue albuterol nebulizer as needed Qualifiers: COPD type: chronic bronchitis Chronic bronchitis type: simple Qualified Code(s): J41.0 - Simple chronic bronchitis Subjective Subjective Patient reports: no new complaints, tolerating a regular diet, voiding w/o difficulty, bowel movement and afebrile; denies diarrhea, nausea or vomiting Exam Narrative Exam Narrative: Const: Obese elderly female in NAD, sitting up in bed, conversant, pleasant HEENT: Normal facial exam. Eyes: Normal conjunctiva and sclera. Neck: Supple. Trachea midline. Lungs: Normal respiratory effort. Cor: RRR without murmur/gallop. Good radial pulses. GI: Soft. NT/ND. No guarding or rebound. Neuro: A+O x 3. Normal speech, mentation, gait. Cranial nerves II - XII grossly intact. No gross motor or sensory deficit. Ext: No edema, bilateral strength equal 5/5 Skin: Warm and dry without rash. Objective Last Vital Signs Temp 37.0 C 10/13/23 07:09 Pulse 60 10/13/23 07:09 Resp 16 10/13/23 07:09 BP 162/62 H 10/13/23 07:09 Pulse Ox 96 10/13/23 07:09 Laboratory Results - last 24 hr 10/12/23 10/12/23 10/13/23 12:20 20:05 06:50 WBC 3.24 L RBC 3.41 L Hgb 7.6 L 7.6 L 7.4 L Hct 26.2 L 26.5 L 26.0 L MCV 76 L MCH 21.7 L MCHC 28.5 L RDW 18.6 H Plt Count 81 L MPV Immature Gran % 0.3 Neutrophils % 60.0 Lymphocytes % 26.5 Monocytes % 8.3 Eosinophils % 4.0 Basophils % 0.9 Nucleated RBC % 0.0 Absolute Neutrophils 1.94 Absolute Lymphocytes 0.86 L Absolute Monocytes 0.27 Absolute Eosinophils 0.13 Absolute Basophils 0.03 RBC Morphology See Below Hypochromasia 1+ Microcytosis 1+ Sodium 144 Potassium 3.9 Chloride 108 H Carbon Dioxide 28.2 Anion Gap 7.8 BUN 11 Creatinine 0.9 Est GFR (CKD-EPI 2020) 65.44 Glucose 106 Calcium 9.0 Magnesium 2.0 Time Spent with Patient Time Spent with Patient: 25-34 minutes Time was spent: preparing to see the patient(eg.review tests), ordering medications,tests, procedures, referring, communicating with other health adult care manager, indepentently interpreting results, counseling the patient and care coordination
--- NOTE | 2023-10-13 10:50 | W.PM.PROGNOT ---
Date of Service Date of service: 10/13/23 Time of Service: 10:50 Assessment and Plan Assessment and plan (1) Acute blood loss anemia: Status: Acute Assessment and plan: 78-year-old woman with subacute or chronic anemia. We can do an EGD on her tomorrow. I discussed with her and her family about the significant possibility of finding no pathology in the foregut. She can get an outpatient colonoscopy scheduled for sometime in the next month or so depending on upper endoscopy findings. Overall plan: N.p.o. in the morning, EGD probably tomorrow afternoon Subjective Subjective Interval history since last seen: No events overnight. No clinical changes. Patient has no complaints at the bedside. Exam Narrative Exam Narrative: General: Nontoxic, comfortable and interactive Neuro: Alert and oriented x 3 Psych: Upbeat mood and affect, good insight and understanding Chest: Nonlabored breathing Heart: Regular Objective Last Vital Signs Temp 98.6 F 10/13/23 07:09 Pulse 60 10/13/23 07:09 Resp 16 10/13/23 07:09 BP 162/62 H 10/13/23 07:09 Pulse Ox 96 10/13/23 07:09 Laboratory Results - last 24 hr 10/12/23 10/12/23 10/13/23 12:20 20:05 06:50 WBC 3.24 L RBC 3.41 L Hgb 7.6 L 7.6 L 7.4 L Hct 26.2 L 26.5 L 26.0 L MCV 76 L MCH 21.7 L MCHC 28.5 L RDW 18.6 H Plt Count 81 L MPV Immature Gran % 0.3 Neutrophils % 60.0 Lymphocytes % 26.5 Monocytes % 8.3 Eosinophils % 4.0 Basophils % 0.9 Nucleated RBC % 0.0 Absolute Neutrophils 1.94 Absolute Lymphocytes 0.86 L Absolute Monocytes 0.27 Absolute Eosinophils 0.13 Absolute Basophils 0.03 RBC Morphology See Below Hypochromasia 1+ Microcytosis 1+ Sodium 144 Potassium 3.9 Chloride 108 H Carbon Dioxide 28.2 Anion Gap 7.8 BUN 11 Creatinine 0.9 Est GFR (CKD-EPI 2020) 65.44 Glucose 106 Calcium 9.0 Magnesium 2.0 Time Spent with Patient Time Spent with Patient: <25 minutes Time was spent: counseling the patient and care coordination
--- NOTE | 2023-10-13 13:21 | PT.INIE ---
PT Notes Visit Reasons: Acute Anemia with frequent falls,SAENZ Inpatient Physical Therapy Evaluation Date: [10/13/2023] Referring Doctor: Mc Valdez PT Orders: PT CONSULT: [Fall risk evaluate and treat] Precautions: Fall risk, standard Patient Profile/Admitting Diagnosis: Acute anemia with frequent falls, SAENZMarkell Krishnan is a pleasant 78-year-old female presenting to the ED 531 with onset of pedal edema, positional dizziness, had a fall the previous day onto her back. She had a transfusion in the ED but was still cardiovascularly unstable thus admitted to [facility]. She had complaint of low back pain after the fall that have increased over the past week, x-rays negative for acute fracture, negative CT scan of head. Patient does have ecchymosis and bruising primarily of the left low back area. PMHX: []PFSH All Active Problems (Updated 10/11/23 @ 20:16 by Mc Valdez) Acute blood loss anemia (Acute) Thrombocytopenia (Chronic) Symptomatic anemia (Acute) Hx of falling (Acute) Osteoarthritis of carpometacarpal joint of left thumb (Chronic) 40 mg Depo: 04/12/23Back pain (Acute) Bunion, right foot (Acute) Acquired hammer toe of left foot (Acute) Acquired hammer toe of right foot (Acute) Toe pain, left (Acute) Toe pain, right (Acute) Trigger thumb of right hand (Acute) Chronic obstructive lung disease (Chronic) PFTs September 2020 with FVC of 1.88 (77% predicted), FEV1 of 1.37 (75% predicted) and FEV1/FVC of 73%, TLC 4.70 (103% predicted), DLCO 76%Depressive disorder (Acute) Essential hypertension (Chronic 09/08/13) Hyperlipidemia (Chronic 08/12/12) Non-alcoholic fatty liver disease (Chronic 12/01/12) +ultrasound 2014/persistent elevated transaminases/neg. Hep.B and Hep.C Fib 4 score of 4.0 Fecal incontinence (Acute) OAB (overactive bladder) (Acute) Urinary incontinence (Acute) Pulmonary nodules/lesions, multiple (Acute) [facility] [place] (Ch[place]) ongoing symptoms, negative cardiopulmonary [facility] [place] obesity with BMI of 40.0-44.9, adult (Acute) Prediabetes (Acute) Phlebitis of right leg (Acute) Osteoarthritis of right knee (Acute) DEPO MEDROL 12/19/22, 08/23/22; 05/21/22Pancytopenia (Acute) Corns and callosities (Acute) 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 Kim, [facility] [place] Medical History Generalized osteoarthritis of multiple sites present, but not very bothersome - affects back, handsHistory of tobacco abuse quit 2014, smoked 1/2 ppd x 50 yrsNonobstructive atherosclerosis of coronary artery (~05/2021) 05/15/21: Coronary calcium score 331, consistent with heavy atherosclerotic plaque burden and 80th percentile rank based on age race and gender nonobstructive calcified coronary artery disease.Tubular adenoma (~10/2020) Fracture of right distal radius (05/30/20) after a fall at home, tripping injury, managed nonoperatively.Polyp of colon 07/2010; 12/03/12 : multiple polyps including tubular adenomas and pandiverticulosis. 2016:sessile serrated adenoma/ Heart murmur normal echocardiogram Acute gouty arthritis (05/14/17) Diverticulosis of colon without diverticulitis GERD (gastroesophageal reflux disease) Surgical History History of colonoscopy (~10/2020) Hx of breast biopsy LeftStatus post abdominal hysterectomy Social History/Home Situation: Patient describes living in a trailer on single floor when she is in the home. She lives with her and has a dog. She reports being independent at baseline without assistive device. Current Functional Limitations: Patient unsteady, frequent falls, and reports being tired Equipment Owned/DME: Patient currently does not have AD at home will require RW upon discharge Subjective: Patient reports feeling quite tired but she denies any current dizziness she does have pain in her left low back. She also reports that she gets spasms in her low back. Objective: General Observation: Patient is alert sitting up in her chair describes feeling tired it is early afternoon when she would like to take a nap. Patient states that she is eager to work with physical therapy. Mental Status: Alert and orientated x 3, carries on full conversation and is able to recognize names of their daughters and her grandchildren. She is able to eventually let me know that she had her fall on and did not call for help she did get up on her own. Pain: 11/19 left low back ROM: Right Upper Extremity: WFL Left Upper Extremity: WFL Right Lower Extremity: WFL Left Lower Extremity: WFL Strength: Right Upper Extremity: WFL Left Upper Extremity: WFL Right Lower Extremity:Left Lower Extremity: WFL quad R3+L3+ ham R3+L3+ gastroc R2 L2 DF R3+ L3+ Sensation: Denies any distal numbness or tingling Bed Mobility/Transfers: With verbal cueing patient able to maneuver in bed utilizing glutes squeeze and bridging but is uncomfortable in her low back. Supine moving in bed instructed in performing glutes squeeze and hook lying position and patient able to utilize this maneuver Sit to stand from chair to RW needs verbal cueing for hand placement and needs to tries but able to perform with supervision Stand to sit from RW to chair needs verbal cueing for hand placement with supervision Stand to sit at bed with RW needs verbal cueing and time with supervision Gait: Ambulates with gait belt and RW in room with VC for sequencing, positioning take small steps somewhat unsteady thus contact-guard. We are able to perform 1 x 20 feet with maneuvering in a small space. We are able to perform 1 time 8 feet to get back to bed with opportunity to work on repositioning backwards and sideways. Balance: Static Sitting: Normal Dynamic Sitting: Good Static Standing: Fair Dynamic Standing: Fair, we do challenge her with attempt at SLS she is unable to perform on either leg. Special Tests: Mobility Limitations Standardized Measure [facility] AM-PAC 6 clicks Basic Mobility Inpatient Short Form: Raw Score: 17 standardized Score: 3.03 CMS Score: 50.57 Informed Consent/Education: Patient instructed in purpose of PT consult and plan of care. Assessment: Patient is a 78year old female referred to physical therapy services with the diagnosis of acute anemia with frequent falls, SAENZ. Patient presents with clinical signs and symptoms consistent with unsteady gait, general weakness and fatigue, as demonstrated by the following impairment level findings: Unsteady gait, fair to poor balance, decreased strength, decreased endurance. Impairments are contributing to the following functional limitations: AMPAC score. Patient will benefit from skilled physical therapy while in acute care to maximize strength, endurance, and overall function. It will be recommended that she receive skilled physical therapy at home to continue progression to previous level of function. Patient is assessed as a Low 94640 complexity based on the following: History: As outlined Examination: As outlined Presentation: Evolving Decision Making: Low Goals: Goals X1 week 1. Supine-Sit independent 2. Sit-Supine independent 3. Sit-Stand independent 4. Stand-Sit independent 5. Bed-Chair independent 6. Chair-Bed independent 7. Gait with least AD independent 8. Stairs with supervision 9. Independent with home exercise program 10. Balance improved to good with standing and fair with dynamic standing Plan of Care/Treatment Plan: 14830 therapeutic exercise 8' Seated ankle dorsiflexion and plantarflexion x 10, marching x 10 and leg extension x 10 In bed PPT with glued isometric x 10, PPT with bridge x 5, ankle pumping x 10 25700 functional activity 15' Bed mobility: Instruct patient in glutes squeeze and then bridge position to aid with maneuvering in bed Sit to stand: Instruction in utilizing upper extremity and lower extremity in unison also with leaning forward somewhat, repeat in and out of the chair to RW x 2 and off the edge of the bed to RW x 2 In standing: Marching in place with light handhold Gait: Ambulate with RW with VC, maneuvering with RW as patient has not used AD in the past. Ambulate 1 x 20 feet with maneuvering with RW with close guard and 1 time 8 feet with sidestepping and backward with contact-guard. 1-2x/day, 7 days/week x 1 week. Plan of care has been reviewed with the BRISTLE MACHINE OPERATOR providing the service under Physical Therapy direction. Initiate Physical Therapy intervention for strengthening, bed mobility, transfers, gait, stairs, balance training, use of assistive device. DISCHARGE RECOMMENDATIONS: X Home with services physical therapy to progress to independent mobility at home. [place]ATMENT [place]: [place] [address], [address]187 therapeutic exercise, 00069 functional activity 12:50-13:20 30' Please sign an return this page within 30 days if you agree with the above POC. Thank you! Physician Signature Date [facility]
[2023-10-13] MEDS: amLODIPine 5 MG TAB PO (16:36)
[2023-10-14] VITALS (8 sets, daily range): BP systolic 116–169; BP diastolic 33–53; PULSE 18–64; RESP 18–21; TEMP 36.4–36.7; O2SAT 94–95; BMI 36.6
[2023-10-14 06:36] LABS: Bilirubin Negative (Negative); Blood Trace-intact (Negative); Clarity Clear (Clear); Glucose Negative (Negative); Ketones Negative (Negative); Leukocyte Esterase Negative (Negative); Nitrite Negative (Negative); Urobilinogen 0.2 mg/dL (Up to 0.2); pH 6.5 (5-8)
[2023-10-14 06:45] LABS: Abs Immature Grans 0.01 10^3/uL (0.0-0.06); Absolute Basophil Count 0.04 10^3/uL (0.0-0.2); Absolute Eosinophil Count 0.16 10^3/uL (0.0-0.7); Absolute Lymphocyte Count 1.09 10^3/uL (1.2-3.4); Absolute Monocyte Count 0.28 10^3/uL (0.1-0.8); Absolute Neutrophil Count 2.11 10^3/uL (1.2-6.7); Basophils % 1.1 %; Eosinophils % 4.3 %; HCT 27.2 % (36.0-46.0); HGB 7.8 g/dL (11.2-15.7); Immature Grans % 0.3 %; Lymphocytes % 29.5 %; MCH 21.8 pg (27.0-33.0); MCHC 28.7 % (32.0-36.0); MCV 76 fL (80-95); Monocytes % 7.6 %; Neutrophils % 57.2 %; RBC 3.57 10^6/uL (3.93-5.22); RDW 19.1 % (11.7-14.6); RDW-SD 52.7 fL; WBC 3.69 10^3/uL (4.4-10.8)
[2023-10-14 07:05] LABS: ALT 29 U/L (14-59); AST 26 U/L (15-37); Albumin 3.6 g/dL (3.4-5.0); Alkaline Phosphatase 92 U/L (46-116); Anion Gap 10.3 mmol/L (3-11); BUN 15 mg/dL (7-18); Bilirubin, Total 1.6 mg/dL (0.2-1.0); CO2 27.7 mmol/L (21.0-32.0); CREATININE 0.8 mg/dL (0.55-1.02); Calcium 8.8 mg/dL (8.5-10.1); Chloride 105 mmol/L (98-107); Estimated GFR 75.37 (mL/min/1.73m2); Glucose 117 mg/dL (74-106); Magnesium 1.9 mg/dL (1.8-2.4); Potassium 3.7 mmol/L (3.5-5.1); Sodium 143 mmol/L (136-145); Total Protein 6.9 g/dL (6.4-8.2)
[2023-10-14 07:12] LABS: Bacteria Negative HPF (Negative); Crystals Negative HPF (Negative); Epithelial Cells Negative HPF (Negative); RBC 0-2 HPF (0-2); WBC Negative HPF (0-5)
[2023-10-14 07:13] LABS: C & S Indicated? C&S Done As Ordered; Casts Negative LPF (Negative); Mucus Negative (Negative)
[2023-10-14 07:18] LABS: Platelet Count 80 10^3/uL (130-400)
[2023-10-14 07:19] LABS: Diff Comment PLT Morph Reviewed
[2023-10-14 07:20] LABS: Hypochromasia 2+
--- NOTE | 2023-10-14 08:28 | W.PM.PROGNOT ---
Date of Service Date of service: 10/14/23 Time of Service: 08:28 Assessment and Plan Assessment and plan (1) Thrombocytopenia: Status: Chronic Assessment and plan: 78-year-old woman with subacute/chronic anemia of unknown etiology. Hemodynamically stable. We will do an EGD before her discharge today. She can schedule an outpatient colonoscopy at her convenience in the next few months. Subjective Subjective Interval history since last seen: Hemoglobin grossly unchanged. Platelet count grossly unchanged. Objective Last Vital Signs Temp 97.9 F 10/14/23 07:42 Pulse 64 10/14/23 07:42 Resp 20 10/14/23 07:42 BP 169/53 H 10/14/23 07:42 Pulse Ox 94 10/14/23 07:42 Laboratory Results - last 24 hr 10/14/23 10/14/23 10/14/23 06:10 06:30 06:30 WBC 3.69 L RBC 3.57 L Hgb 7.8 L Hct 27.2 L MCV 76 L MCH 21.8 L MCHC 28.7 L RDW 19.1 H Plt Count 80 L MPV Immature Gran % 0.3 Neutrophils % 57.2 Lymphocytes % 29.5 Monocytes % 7.6 Eosinophils % 4.3 Basophils % 1.1 Nucleated RBC % 0.0 Absolute Neutrophils 2.11 Absolute Lymphocytes 1.09 L Absolute Monocytes 0.28 Absolute Eosinophils 0.16 Absolute Basophils 0.04 RBC Morphology See Below Hypochromasia 2+ Sodium 143 Potassium 3.7 Chloride 105 Carbon Dioxide 27.7 Anion Gap 10.3 BUN 15 Creatinine 0.8 Est GFR (CKD-EPI 2020) 75.37 Glucose 117 H Calcium 8.8 Magnesium Cancelled 1.9 Total Bilirubin 1.6 H AST 26 ALT 29 Alkaline Phosphatase 92 Total Protein 6.9 Albumin 3.6 Urine Color Yellow Urine Clarity Clear Urine pH 6.5 Ur Specific High View 1.010 Urine Protein Negative Urine Ketones Negative Urine Blood Trace-intact H Urine Nitrite Negative Urine Bilirubin Negative Urine Urobilinogen 0.2 Ur Leukocyte Esterase Negative Urine RBC 0-2 Urine WBC Negative Ur Epithelial Cells Negative Urine Crystals Negative Urine Bacteria Negative Urine Casts Negative Urine Mucus Negative Ur Culture Indicated? C&S Done As Ordered Urine Glucose Negative Time Spent with Patient Time Spent with Patient: <25 minutes Time was spent: care coordination
[2023-10-14] MEDS: hydroCHLOROthiazide 25 MG TAB PO (08:39)
[2023-10-14] MEDS: Sertraline 50 MG TAB PO (08:39)
[2023-10-14] MEDS: Nystatin POWDER 15 GM JAR TP (08:39)
[2023-10-14] MEDS: Lisinopril 20 MG TAB 40 MG PO (08:39)
[2023-10-14] MEDS: Pantoprazole 40 MG TABCR PO (08:39)
[2023-10-14] MEDS: Ferrous Sulfate 325 MG TAB PO (08:39)
[2023-10-14] MEDS: Ketoconazole 2% CREAM 15 GM TUBE TP (08:39)
[2023-10-14] MEDS: amLODIPine 5 MG TAB PO (08:39)
[2023-10-14] MEDS: Normal Saline Flush 10 ML SYR IVP (08:40)
--- NOTE | 2023-10-14 09:55 | PDOC.CMPRO ---
Date of service: 10/14/23 Time of Service: 09:55 Care Management Progress Note Progress Note Text Progress Note Text: S/O: A: Ariella is a 78 year old female admitted to [facility] on 10/11/23 for acute anemia with frequent falls, SAENZ. Discharge Potential Discharge Needs: PCP F/U Appt and Other (EGD) Anticipated Barriers to Discharge: Treatment delay (EGD on Saturday) Patient/Family Education Needs: Review discharge instructions, discuss Ask Me Three Transportation: Private vehicle Plan: Anticipate Ariella will return home once medically cleared. She will have a PT evaluation prior to discharge, and may require an EGD while inpatient. She will follow up with his PCP and discharge plan of care. CM will continue to follow. SDOH(Care Management) Screening Will the Patient Participate in the Screening?: Yes Do you worry about having a steady place to live?: no Problems where you live: no known problems In the past 12 months, have you had to go without electric, gas, oil or water in your home?: no Have you or anyone in your house had to go without enough food to eat?: no Has lack of transportation kept you from medical appointments or from doing things needed for daily living?: no Has anyone in your support network made you feel unsafe for any reason?: no Anticipated HH Services Anticipated HH Services at Discharge [facility] Needed, PT. Anticipated Date of Discharge: 10/15/23. Following Provider: Rachel Cortez.
[2023-10-14 10:38] LABS: Total Iron Binding Capacity 447 ug/dL (250-450)
--- NOTE | 2023-10-14 11:40 | PT.INTREAT ---
PT Notes Visit Reasons: Acute Anemia with frequent falls,SAENZ Inpatient Physical Therapy Treatment Note [facility] Date: 10/14/2023 PRECAUTIONS: Fall. Standard precautions in place. Activty as tolerated. SUBJECTIVE: Agreeable to session. Complained about pain in back and the left ankle that subsided with activity and with use of well-fitting sneakers. OBJECTIVE: Resting on bedside chair.? PAIN: Minimal pain in back and L matt (chronic) VITALS: Closely monitored by nursing staff Therapeutic Activities (60630 x 32 minutes): Direct one-on-one instruction in dynamic activities to improve functional performance. ? BED MOBILITY/TRANSFERS? Sit-stand: stand by assist use of FWW with cues given to use B hands for support? Stand-sit: stand by assist use of FWW with cues given to use B hands for support? Bed-Chair: stand by assist use of FWW with cues given to use B hands for support? Chair-bed: stand by assist use of FWW with cues given to use B hands for support? ? GAIT? Assistive Device: FWW? Weight bearing: FWB on B LE and UE Assist: satnd by assist ? Distance:? 50 feet + 75 feet + 75 feet ? Deviation: Cues given to increase step height an dlength and for AD management. Walked more efficiently after walker has been re-fitted for her. No LOB. Daughter Mary provided wheelchair follow for safety. ? ASSESSMENT:? Will have good family support at home. Patient and family agreed with HH PT services to regain prior level of mobility without AD. PLAN: Progress mobility level at home using the least AD D/C RECOMMENDATIONS: Patient will benefit from home health PT services in order to progress mobility level using least restrictive assistive ambulatory device, assess home safety, identify additional equipment needs, and establish a functional maintenance program that will increase ability of patient to remain at home. Sen was fitted and provided with brand new walker for home before discharge. TREATMENT CODE/TIME: 86013 x 32 minutes for 2 units (11:40?12:12).
--- NOTE | 2023-10-14 12:01 | ANES.PREOP_ITS ---
General Info Date of Service Date Performed: 10/14/23 Height: 5 ft 1 in Weight: 87.99 kg Body Mass Index (BMI): 36.6 Surgical Procedure: Operation Date: 10/14/23 13:50 Proposed Procedure Side Surgeon p Gastroscopy Oscar Bianchi MD Meds Allergies and Home Medications Allergies Allergy/AdvReac Type Severity Reaction Status Date / Time Metronidazole HCl AdvReac Severe stomach Verified 10/11/23 15:50 [From Flagyl] upset amoxicillin [Amoxicillin] AdvReac Intermediate GI UPSET Verified 10/11/23 15:50 clavulanic acid AdvReac Intermediate GI UPSET Verified 10/11/23 15:50 doxycycline AdvReac Intermediate severe Verified 10/11/23 15:50 reflux erythromycin base AdvReac Intermediate Nausea Verified 10/11/23 15:50 [Erythromycin Base] meloxicam AdvReac Intermediate Nausea Verified 10/11/23 15:50 Sulfa (Sulfonamide AdvReac Intermediate NAUSEA AND Verified 10/11/23 15:50 Antibiotics) VOMITING doxycycline AdvReac Other (See Uncoded 10/11/23 15:50 Comment) Home Medication Medication Instructions Recorded ferrous sulfate 325 mg (65 mg 325 mg PO BID #90 tabs 03/10/21 iron) tablet ketoconazole 2 % topical cream 1 applic topical BID #60 grams 10/09/22 albuterol sulfate 90 mcg/actuation 2 puff inhalation Q6H PRN 11/21/22 aerosol inhaler (ProAir HFA) shortness of breath or wheezing #8.5 grams pantoprazole 40 mg tablet,delayed 40 mg PO DAILY #90 tab-caps 03/22/23 release (Protonix) hydrochlorothiazide 25 mg tablet See Rx Instructions .Route 07/02/23 .COMPLEX #90 tabs lisinopril 40 mg tablet See Rx Instructions .Route 09/26/23 .COMPLEX #90 tabs sertraline 50 mg tablet See Rx Instructions .Route 09/26/23 .COMPLEX #90 tabs nystatin 100,000 unit/gram topical 1 applic topical TID #30 grams 09/27/23 powder amlodipine 5 mg tablet 5 mg PO DAILY #30 tabs 10/14/23 cyanocobalamin (vitamin B-12) 500 1,000 mcg (2 x 500 mcg) PO DAILY 10/14/23 mcg tablet (Vitamin B-12) #60 tabs docusate sodium 100 mg capsule 100 mg PO TID PRN PRN #90 caps 10/14/23 (Colace) Current Visit Medications: Current Medications Generic Name Dose Route Start Last Admin Trade Name Freq PRN Reason Stop Dose Admin Acetaminophen 325 - 650 mg 10/11/23 20:06 10/12/23 20:05 Acetaminophen 325 Mg Tab PO 650 mg Q4H PRN PRN Administration Al Hydrox/Mg Hydrox/Simethicone 15 ml 10/11/23 20:06 Mylanta Double Strength Suspension 30 Ml Cup PO Q2H PRN PRN Albuterol Sulfate 2.5 mg 10/11/23 20:06 Albuterol 2.5 Mg/3 Ml Inh Soln Vial UPD Q2H PRN PRN Amlodipine Besylate 5 mg 10/14/23 08:30 10/14/23 08:39 Amlodipine 5 Mg Tab PO 5 mg DAILY RADHA Administration Cyanocobalamin 1,000 mcg 10/15/23 08:30 Cyanocobalamin 500 Mcg Tab PO DAILY RADHA Docusate Sodium 100 mg 10/11/23 20:06 Docusate Sodium 100 Mg Cap PO TID PRN PRN Ferrous Sulfate 325 mg 10/12/23 08:30 10/14/23 08:39 Ferrous Sulfate 325 Mg Tab PO 325 mg BID RADHA Administration Hydrochlorothiazide 25 mg 10/12/23 08:30 10/14/23 08:39 Hydrochlorothiazide 25 Mg Tab PO 25 mg DAILY RADHA Administration IV Miscellaneous Supplies 1 each 10/11/23 20:15 Iv Access IV DIRECTED RADHA Ketoconazole 0 gm 10/12/23 08:30 10/14/23 08:39 Ketoconazole 2% Cream 15 Gm Tube TP 1 applic BID RADHA Administration Lisinopril 40 mg 10/12/23 08:30 10/14/23 08:39 Lisinopril 20 Mg Tab PO 40 mg DAILY RADHA Administration Magnesium Hydroxide 30 ml 10/11/23 20:06 Milk Of Magnesia 30 Ml Cup PO DAILY PRN PRN Nystatin 0 gm 10/12/23 08:30 10/14/23 08:39 Nystatin Powder 15 Gm Jar TP 1 applic TID RADHA Administration Pantoprazole Sodium 40 mg 10/12/23 07:30 10/14/23 08:39 Pantoprazole 40 Mg Tabcr PO 40 mg DAILY@0730 RADHA Administration Polyethylene Glycol 17 gm 10/11/23 20:06 Polyethylene Glycol 3350 17 Gm Packet PO DAILY PRN PRN Constipation Sertraline HCl 50 mg 10/12/23 08:30 10/14/23 08:39 Sertraline 50 Mg Tab PO 50 mg DAILY RADHA Administration Sodium Chloride 0 ml 10/11/23 20:06 Normal Saline Flush 10 Ml Syr IVP PRN PRN Sodium Chloride 0 ml 10/12/23 08:30 10/14/23 08:40 Normal Saline Flush 10 Ml Syr IVP 10 ml BID RADHA Administration Sodium Chloride 0 ml 10/11/23 20:06 Normal Saline 10 Ml Vial IJ DIRECTED PRN Tramadol HCl 25 mg 10/11/23 22:44 10/11/23 23:15 Tramadol 50 Mg Tab PO 25 mg Q4H PRN PRN Administration PFSH Active Problems Active Problems: Problem Status Onset Code Acute blood loss anemia D62 Thrombocytopenia D69.6 Symptomatic anemia D64.9 Hx of falling Z91.81 Osteoarthritis of carpometacarpal joint of left thumb M18.12 Back pain M54.9 Bunion, right foot M21.611 Acquired hammer toe of left foot M20.42 Acquired hammer toe of right foot M20.41 Toe pain, left M79.675 Toe pain, right M79.674 Trigger thumb of right hand M65.311 Chronic obstructive lung disease J44.9 Depressive disorder F32.9 Essential hypertension 09/08/13 I10 Hyperlipidemia 08/12/12 E78.5 Non-alcoholic fatty liver disease 12/01/12 K76.0 Fecal incontinence R15.9 OAB (overactive bladder) N32.81 Urinary incontinence R32 Pulmonary nodules/lesions, multiple R91.8 Exertional dyspnea R06.00 Morbid obesity with BMI of 40.0-44.9, adult E66.01, Z68.41 Prediabetes R73.03 Phlebitis of right leg I80.3 Osteoarthritis of right knee M17.11 Pancytopenia D61.818 Corns and callosities L84 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 Tubular adenoma (~10/2020) Fracture of right distal radius (05/30/20) after a fall at home, tripping injury, managed nonoperatively. Polyp of colon 07/2010; 12/03/12 : multiple polyps including tubular adenomas and pandiverticulosis. 2016:sessile serrated adenoma/ Heart murmur normal echocardiogram Acute gouty arthritis (05/14/17) Diverticulosis of colon without diverticulitis GERD (gastroesophageal reflux disease) Surgical History Surgical History History of colonoscopy (~10/2020) Hx of breast biopsy Left Status post abdominal hysterectomy Tobacco Smoking/Tobacco Use Status: Former Tobacco Use Passive smoking exposure: Yes Second hand exposure: Yes Alcohol Alcohol Intake: former Substance Use Substance use: Never Substance use type: does not use Details: alcohol: t-7 Vital Signs and Lab Results Vital Signs Most Recent Vital Signs in EMR: Most Recent Vital Signs Temp Pulse Resp BP Pulse Ox 36.4 C L 18 L 18 148/52 H 94 10/14/23 11:28 10/14/23 11:28 10/14/23 11:28 10/14/23 11:28 10/14/23 11:28 Lab Results 10/14/23 06:30 10/14/23 06:30 Blood Type / Crossmatch: 2 Antibody Screen NEGATIVE 10/11/23 Crossmatch See Detail 10/11/23 Complete Blood Count: 2 White Blood Count 3.69 10^3/uL (4.4-10.8) L 10/14/23 06:30 Red Blood Count 3.57 10^6/uL (3.93-5.22) L 10/14/23 06:30 Hemoglobin 7.8 g/dL (11.2-15.7) L 10/14/23 06:30 Hematocrit 27.2 % (36.0-46.0) L 10/14/23 06:30 Platelet Count 80 10^3/uL (130-400) L 10/14/23 06:30 Venous Blood Lactate 0.9 mmol/L (0.6-1.4) 10/11/23 19:38 Complete Metabolic Panel: 2 Sodium 143 mmol/L (136-145) 10/14/23 06:30 Potassium 3.7 mmol/L (3.5-5.1) 10/14/23 06:30 Chloride 105 mmol/L (98-107) 10/14/23 06:30 Carbon Dioxide 27.7 mmol/L (21.0-32.0) 10/14/23 06:30 BUN 15 mg/dL (7-18) 10/14/23 06:30 Creatinine 0.8 mg/dL (0.55-1.02) 10/14/23 06:30 Est GFR (CKD-EPI 2020) 75.37 (mL/min/1.73m2) 10/14/23 06:30 Magnesium 1.9 mg/dL (1.8-2.4) 10/14/23 06:30 Calcium 8.8 mg/dL (8.5-10.1) 10/14/23 06:30 Albumin 3.6 g/dL (3.4-5.0) 10/14/23 06:30 Glucose 117 mg/dL (74-106) H 10/14/23 06:30 Liver Function Panel: 2 Alanine Aminotransferase (ALT/SGPT) 29 U/L (14-59) 10/14/23 06: 30 Aspartate Amino Transf (AST/SGOT) 26 U/L (15-37) 10/14/23 06:30 Coagulation Panel: 2 INR International Normalized Ratio 1.2 (0.9-1.1) H 10/12/23 06 :35 Prothrombin Time 11.5 sec (9.1-11.1) H 10/12/23 06:35 Activated Partial Thromboplast Time 26.5 sec (23.6-32.8) 19:38 Cardiac Panel: 2 Troponin I < 50 ng/L (< or =60) 10/11/23 Arterial Blood Gas: 2 No Data to Display Venous Blood Gas: 2 No Data to Display Pancreas Panel: 2 No Data to Display Thyroid Panel: 2 No Data to Display Infectious Disease: 2 No Data to Display Blood Cultures: 2 No Data to Display Toxicology Panel: 2 No Data to Display Imaging and Studies Imaging and Studies Study information below may be from another EMR and interpreted by another provider. Please see original notes in EMR for more complete details. EKG Summary: Conclusion Sinus rhythm...normal P axis, V-rate 60- 99 Probable LVH with secondary repol abnrm...multiple LVH criteria Narrow complex normal sinus rhythm at a rate of 66. Left axis deviation LVH based on voltage criteria. Intervals within normal limits. T wave inversion in aVL with ST segment flattening left lateral chest wall leads. Compared to prior dated 2 years ago T wave inversions and ST segment flattening are similar. No acute injury pattern. 10/11/23 Stress Test Summary: Stress ECG Conclusion 1. Resting electrocardiogram showed left ventricular hypertrophy 2. Patient underwent stress with both exercise and regadenoson. Peak heart rate achieved was 81% of predicted for age 3. Electrocardiographically the test was consistent with myocardial ischemia with 1.5 [address] depression noted in the inferior and anterolateral leads 4. There were no significant dysrhythmias Stress Test Summary STAGEHRBPSymptomsNOTES [id number] 1 min post Lexiscan [id number]/78moderate SOBSpO2 95% 3 min post Lexiscan [id number]/80chest tightness 6/10SpO2 93% 6 min post Lexiscan [id number]/76mild SOB, symptoms resolvingSpO2 94% 9 min post Lexiscan [id number]/78SpO2 94% 12 min post Lexiscan [id number] resolvedSpO2 96% Pt ambulated on treadmill for walking Lexiscan test at 1.3mph and 0% grade for 4 minutes. MPI Conclusion Normal myocardial perfusion without evidence of ischemia or prior infarction EF is 73% 02/02/21 Echocardiogram Summary: 09/15/20 : 1945 Age: 75 APPROVED REPORT EXAM: Comprehensive 2D, Doppler, and color-flow Echocardiogram Patient Location: Out-Patient Supervisor [employer] Gang: Roxie Rivera RDCS (AE) Indications: Dyspnea on exertion Other Information Study Quality: Adequate Conclusion Normal left ventricular chamber size. Mild concentric left ventricular hypertrophy. Estimated ejection fraction is 60 to 65%. Wall motion is normal Normal right ventricular size and systolic function Both atria are normal in size No significant valvular disease Pulmonary Function Summary: PFT reviewed and WNL Anesthesia Assessment and Plan Anesthesia History Personal History: No History of Anesthesia Complications Family History: No Family History of Anesthesia Complications Exercise Tolerance Exercise Tolerance: Metabolic Equivalents<4 Pertinent Negatives Pertinent Negatives: No Symptoms of GERD, No Major Cardiovascular Symptoms or Complaints and No Major Pulmonary Symptoms or Complaints Cardiac & Pulmonary Exam Cardiac Exam: Normal S1/S2 Heart Sounds Pulmonary Exam: Clear Bilateral Breath Sounds Implantable Cardiac Device Does patient have a Pacemaker or an ICD?: No Airway Exam Known Difficult Airway: No Mallampati Class: 2 Mouth Opening: Normal (> 3cm) Thyromental Distance: Greater than 3 cm Neck Range of Motion: Limited ROM (zinger in posterior neck with extension) Neck Circumference: Normal Teeth Condition: Normal Dentition ASA Classification ASA Score: ASA 3 Emergency Case?: No NPO Status NPO Status: NPO Clears >2 hours, Solids >8 hours Anesthesia Plan Resuscitation Status: Full Code Anesthesia Technique: General Anesthesia Airway Planned: Natural Airway Monitors Used: Standard Monitors
[2023-10-14] MEDS: Lactated Ringers 1,000 ML 30 ML IV (13:30)
--- NOTE | 2023-10-14 13:38 | STOM_PTH ---
PATIENT: Arilela Restrepo LOC: U#:[id number] AGE/SX: 78/F ROOM: RE10/11/[address]: Mc Valdez : 1945 BED: A DIS: 10/14/2023 SPEC #: [id number] RECD: 10/14/23 17:02 STATUS: MALIKA RE #: [id number] ROBERTO CARLOS: 10/14/23 13:[address]: Oscar Bianchi DEPT: Surgical Specimen RECD BY: Tea Guillen ENTERED: 10/14/23 17:02 SP TYPE: STOMACH OTHR DR: Mc Valdez, SENIOR TECHNICAL EDITOR Oscar Bianchi Tissues: 1 - STOMACH BIOPSY 2 - STOMACH BIOPSY Procedures: GROSS AND MICRO LEVEL 4 Comments: [id number]
--- NOTE | 2023-10-14 14:03 | W.ANESPOSTOP ---
Postoperative Evaluation Date, Time and Location Date Performed: 10/14/23 Time Performed: 14:03 Patient Location: PACU Vital Signs Most Recent Imported Vital Signs: Most Recent Vital Signs Temp Pulse Resp BP Pulse Ox 36.7 C 54 L 21 120/38 L 94 10/14/23 13:43 10/14/23 13:53 10/14/23 13:53 10/14/23 13:53 10/14/23 13:53 Pain Score Most Recent Pain Score: Most Recent Pain Score Pain Level 0 10/14/23 13:53 Assessment Mental Status: Awake (Alert & Oriented to Patient Baseline) Airway and Respiratory Function: Patent airway with normal (patient baseline) respiratory exam Cardiovascular Function: Hemodynamically Stable Hydration Status: Adequately Hydrated Nausea & Vomiting: No Nausea or Vomiting Pain: Pt. Denies Any Pain Peripheral Nerve Block: Patient did not receive a nerve block
--- NOTE | 2023-10-14 14:21 | PHA.REVIEW2 ---
Pharmacy Admission Review Admission Clinical Review Admission Pharmacy Review: Acute blood loss anemia (Acute) Symptomatic anemia (Acute) Hx of falling (Acute) Metronidazole HCl [From Flagyl] Adverse Reaction (Severe, Verified 10/11/23 15:50) stomach upset amoxicillin [Amoxicillin] Adverse Reaction (Intermediate, Verified 10/11/23 15:50) GI UPSET clavulanic acid Adverse Reaction (Intermediate, Verified 10/11/23 15:50) GI UPSET doxycycline Adverse Reaction (Intermediate, Verified 10/11/23 15:50) severe reflux erythromycin base [Erythromycin Base] Adverse Reaction (Intermediate, Verified 10/11/23 15:50) Nausea meloxicam Adverse Reaction (Intermediate, Verified 10/11/23 15:50) Nausea Sulfa (Sulfonamide Antibiotics) Adverse Reaction (Intermediate, Verified 10/11/23 15:50) NAUSEA AND VOMITING doxycycline Adverse Reaction (Uncoded 10/11/23 15:50) Other (See Comment) Resuscitation Status Full Code Height 5 ft 1 in Weight 87.99 kg Comments Comments/Follow Ups: EGD today, if normal then will be discharged per morning meeting Pharmacy Admission Review Renal Dosing Renal Dosing: BUN 15 mg/dL (7-18) 10/14/23 06:30 Creatinine 0.8 mg/dL (0.55-1.02) 10/14/23 06:30 Medications needing adjustments: Reviewed (CrCl 46.75 mL/min) List of meds needing interventions: Current medications are okay Anticoagulation Anticoagulation: Hgb 7.8 g/dL (11.2-15.7) L 10/14/23 06:30 Hct 27.2 % (36.0-46.0) L 10/14/23 06:30 Plt Count 80 10^3/uL (130-400) L 10/14/23 06:30 INR 1.2 (0.9-1.1) H 10/12/23 06:35 Creatinine 0.8 mg/dL (0.55-1.02) 10/14/23 06:30 DVT Prophylaxis: Reviewed (SCDs) Relevant Labs Relevant Labs: Sodium 143 mmol/L (136-145) 10/14/23 06:30 Potassium 3.7 mmol/L (3.5-5.1) 10/14/23 06:30 Chloride 105 mmol/L (98-107) 10/14/23 06:30 Magnesium 1.9 mg/dL (1.8-2.4) 10/14/23 06:30 Magnesium Cancelled 10/14/23 06:30 Electrolytes, C-Reactive P, ESR: Reviewed (Hgb 7.8 (slightly increased), glucose 117, urine culture pending) Cardiac Review Cardiac Review: Troponin I < 50 ng/L (< or =60) 10/11/23 15:50 BP, HR, EF%: Reviewed (BP 132/36, HR WNL) QTc Review QTc: Reviewed (407 from 10/11/23) IV to PO Switch IV Medications: Reviewed (NPO for EGD today) Home Meds Home Med List reviewed: Reviewed Current Meds Current Medication Order Review: Reviewed Comments Comments/Follow Ups: EGD today, if normal then will be discharged per morning meeting
--- NOTE | 2023-10-14 14:34 | DSE_ITS ---
Date of service: 10/14/23 Time of Service: 14:34 DS: Diagnosis Discharge Diagnosis (1) Thrombocytopenia: Status: Chronic (2) Symptomatic anemia: Status: Acute (3) Hx of falling: Status: Acute Discharge Plan Disposition Patient Disposition: Home W/Home Health Services Condition: Improving Discharge Details Reason For Visit: Acute Anemia with frequent falls,SAENZ Admit Date/Time: 10/11/23 20:03 Admit Provider: Mc Valdez Attending Provider: Mc Valdez [facility] Hospital Course: This 78 years old female patient with a past medical history of nonalcoholic fatty liver disease (SAENZ), frequent fall, chronic obstructive pulmonary disease, essential hypertension, hyperlipidemia, lower GI bleed with colon polyps in 2022 presented to the ED at [facility] on 10/11/2023 with her for evaluation of increased fatigue and periods of confusion. Upon examination it was noticed that the patient had extensive left-sided bruising without hypoxia more flail segments. ED workup showed an hemoglobin of 5 g/dL with an MCV of 76 and platelets at 88. Chest abdomen and pelvis CT as well as thoracic lumbar spine CT showed no acute findings except for stable pulmonary nodules hepatomegaly and small perihepatic ascites without abdominal tenderness or fever. Head CT was negative for hemorrhage or infarct but the quality was poor due to motion artifacts. EKG showed no signs of acute ischemia; ST changes visualized were similar to the one that the patient had 2 years prior to this hospital visit. The hospitalist was consulted and the patient was admitted to the medical surgical floor for evaluation and management of symptomatic anemia of unknown etiology. During her stay, the patient received 2 units of packed red blood cells and a surgical consult was obtained. Status post-transfusion H&H remained stable at 7.8 and 27.2, platelets were around 80. The patient's systolic blood pressure reading held between 174 to 205 in the first 24 hours of admission and amlodip ine was initiated. Iron was 25 and B12 levels 179 ; cyanocobalamin supplementation was initiated to be continued upon discharge. The patient had an upper endoscopy with Dr. Bianchi who performed a biopsy of the gastric mucosa. No source of acute bleeding was found. The patient will have to follow-up with Dr. Bianchi in the office for biopsy results in 2 to 3 weeks. The patient will be discharged home with a follow-up with her primary care within 7 days of discharge. We recommend outpatient neurology follow-up as per discussion between the primary care practitioner, the patient and her family and. All, all as per results from biopsy will emerge. The patient will be discharged home on oral iron and vitamin B12. Amlodipine 5 mg daily will continue upon discharge. The patient's other chronic conditions were managed as per home medicine regimen. Discussed with Dr. Koenig Home Meds and New Rx's Prescriptions: New amlodipine 5 mg Tablet 5 mg PO DAILY Qty: 30 0RF cyanocobalamin (vitamin B-12) [Vitamin B-12] 500 mcg Tablet 1,000 mcg PO DAILY Qty: 60 0RF docusate sodium [Colace] 100 mg Capsule 100 mg PO TID PRN PRNQty: 90 0RF Continued nystatin 100,000 unit/gram powder 1 applic topical TID Qty: 30 0RF ferrous sulfate 325 mg (65 mg iron) tablet 325 mg PO BID Qty: 90 1RF ketoconazole 2 % cream 1 applic TP BID Qty: 60 1RF albuterol sulfate [ProAir HFA] 90 mcg/actuation HFA aerosol inhaler 2 puff inhalation Q6H PRN (Reason: shortness of breath or wheezing) Qty: 8.5 3RF pantoprazole [Protonix] 40 mg tablet,delayed release (DR/EC) 40 mg PO DAILY Qty: 90 3RF hydrochlorothiazide 25 mg tablet See Rx Instructions .ROUTE .COMPLEX Qty: 90 3RF Dose Instruction: TAKE ONE TABLET BY MOUTH EVERY DAY Rx Instructions: TAKE ONE TABLET BY MOUTH EVERY DAY lisinopril 40 mg tablet See Rx Instructions .ROUTE .COMPLEX Qty: 90 4RF Dose Instruction: TAKE ONE TABLET BY MOUTH EVERY DAY Rx Instructions: TAKE ONE TABLET BY MOUTH EVERY DAY sertraline 50 mg tablet See Rx Instructions .ROUTE .COMPLEX Qty: 90 4RF Dose Instruction: TAKE ONE TABLET BY MOUTH EVERY DAY Rx Instructions: TAKE ONE TABLET BY MOUTH EVERY DAY Discharge Instructions Stand Alone Forms: Nursing Discharge Form Referrals: Rachel Cortez NP [Primary Care Provider] - 10/28/23 1:40 pm (F/u within 7 days with PCP please ) Activity:: Activity as Tolerated Equipment/Supplies:: Walker Diet:: heart healthy Discharge Orders Discharge Orders: Discharge Order (Routine); Ordered 10/14/23 Ordered By: Caitlin Marr DS: Summary Time Spent with Patient providing and/or coordinating discharge services: Greater than 30 minutes Status at Discharge Functional status at discharge: uses cane/walker Overall status at discharge: patient is progressing back to baseline Mental Status: mental status grossly normal Speech and Movement: speech and movement normal Mood: congruent mood Affect: normal affect Quality:SDOH Health Related Social Needs: No Data to Display Exam Narrative Exam Narrative: Const: Obese elderly female w/o acute distress, pleasant , at bedside HEENT: Normal facial structures Neck: Supple. Trachea midline. Lungs: clear to auscultation. Cardiac:S1, S2, regular, positive radial and pedal pulses. GI: Large, soft, non-tender, not distended Neuro: A and O x 3, forgetful at times w/o gross motor or sensory deficit. Ext: No edema, bilateral strength equal 5/5 Skin: Warm and dry without rash, fading bruising to left back. Psych Mental Status: mental status grossly normal Speech and Movement: speech and movement normal Mood: congruent mood Affect: normal affect DS: Data Vitals/I&O Vitals and I&O: Vital Signs Temperature 36.6 C 10/14/23 13:58 Temperature Source Temporal Artery Scan 10/14/23 11:28 Pulse 60 10/14/23 13:58 Pulse Rhythm Regular 10/14/23 08:20 Pulse 66 10/11/23 21:08 Respiratory Rate 20 10/14/23 13:58 Respiratory Effort Normal, Non-Labored 10/14/23 08:20 Respiratory Depth Normal 10/14/23 08:20 Respiratory Pattern Normal 10/14/23 08:20 Blood Pressure 132/36 L 10/14/23 13:58 Blood Pressure Mean 85 10/11/23 21:08 Blood Pressure Position Supine 10/11/23 15:40 Pulse Oximetry 94 10/14/23 13:58 Oxygen Delivery Method Room Air 10/14/23 13:58 Oxygen Flow Rate 4 10/14/23 13:48 Pain Level 0 10/14/23 13:58 Comment nurse notified. 10/14/23 11:28 Intake & Output 10/13/23 10/14/23 10/14/23 23:59 11:59 23:59 Intake Total 820 / 820 250 / 250 Output Total 100 / 100 Balance 820 / 820 -100 / 150 250 / 150 Weight 87.99 kg Intake: IV 250 / 250 Oral 820 / 820 Output: Urine 100 / 100 Other: Urine Color Yellow Yellow Urine Appearance Clear Clear Urine Odor None Comment pt voided in toilet with no hat, unclear amount or color. Emesis Description None Voiding Methods Diaper Diaper Incontinent Incontinent Data Completed and Pending Labs on day of discharge: Labs from last 24 hours 10/14/23 10/14/23 10/14/23 06:30 06:30 06:10 WBC 3.69 L RBC 3.57 L Hgb 7.8 L Hct 27.2 L MCV 76 L MCH 21.8 L MCHC 28.7 L RDW 19.1 H Plt Count 80 L MPV Immature Gran % 0.3 Neutrophils % 57.2 Lymphocytes % 29.5 Monocytes % 7.6 Eosinophils % 4.3 Basophils % 1.1 Nucleated RBC % 0.0 Absolute Neutrophils 2.11 Absolute Lymphocytes 1.09 L Absolute Monocytes 0.28 Absolute Eosinophils 0.16 Absolute Basophils 0.04 RBC Morphology See Below Hypochromasia 2+ Sodium 143 Potassium 3.7 Chloride 105 Carbon Dioxide 27.7 Anion Gap 10.3 BUN 15 Creatinine 0.8 Est GFR (CKD-EPI 2020) 75.37 Glucose 117 H Calcium 8.8 Magnesium 1.9 Cancelled TIBC 447 Transferrin Pending Total Bilirubin 1.6 H AST 26 ALT 29 Alkaline Phosphatase 92 Total Protein 6.9 Albumin 3.6 Urine Color Yellow Urine Clarity Clear Urine pH 6.5 Ur Specific Scott 1.010 Urine Protein Negative Urine Ketones Negative Urine Blood Trace-intact H Urine Nitrite Negative Urine Bilirubin Negative Urine Urobilinogen 0.2 Ur Leukocyte Esterase Negative Urine RBC 0-2 Urine WBC Negative Ur Epithelial Cells Negative Urine Crystals Negative Urine Bacteria Negative Urine Casts Negative Urine Mucus Negative Ur Culture Indicated? C&S Done As Ordered Urine Glucose Negative 10/14/23 06:10 Urine - Cath Straight Urine Culture - Pending Preliminary micro results at discharge 10/14/23 06:10 Urine Culture - Pending Urine - Cath Straight PFSH All Active Problems (Updated 10/11/23 @ 20:16 by Mc Valdez) Acute blood loss anemia (Acute) Thrombocytopenia (Chronic) Symptomatic anemia (Acute) Hx of falling (Acute) Osteoarthritis of carpometacarpal joint of left thumb (Chronic) 40 mg Depo: 04/12/23 Back pain (Acute) Bunion, right foot (Acute) Acquired hammer toe of left foot (Acute) Acquired hammer toe of right foot (Acute) Toe pain, left (Acute) Toe pain, right (Acute) Trigger thumb of right hand (Acute) Chronic obstructive lung disease (Chronic) PFTs September 2020 with FVC of 1.88 (77% predicted), FEV1 of 1.37 (75% predicted) and FEV1/FVC of 73%, TLC 4.70 (103% predicted), DLCO 76% Depressive disorder (Acute) Essential hypertension (Chronic 09/08/13) Hyperlipidemia (Chronic 08/12/12) Non-alcoholic fatty liver disease (Chronic 12/01/12) +ultrasound 2014/persistent elevated transaminases/neg. Hep.B and Hep.C Fib 4 score of 4.0 Fecal incontinence (Acute) OAB (overactive bladder) (Acute) Urinary incontinence (Acute) Pulmonary nodules/lesions, multiple (Acute) ongoing evaluation at [facility] [place] Exertional dyspnea (Chronic) ongoing symptoms, negative cardiopulmonary evaluation at [facility] [place] Morbid obesity with BMI of 40.0-44.9, adult (Acute) Prediabetes (Acute) Phlebitis of right leg (Acute) Osteoarthritis of right knee (Acute) DEPO MEDROL 12/19/22, 08/23/22; 05/21/22 Pancytopenia (Acute) Corns and callosities (Acute) 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 Kim, [facility] [place] Medical History Generalized osteoarthritis of multiple sites present, but not very bothersome - affects back, hands History of tobacco abuse quit 2014, smoked 1/2 ppd x 50 yrs Nonobstructive atherosclerosis of coronary artery (~05/2021) 05/15/21: Coronary calcium score 331, consistent with heavy atherosclerotic plaque burden and 80th percentile rank based on age race and gender nonobstructive calcified coronary artery disease. Tubular adenoma (~10/2020) Fracture of right distal radius (05/30/20) after a fall at home, tripping injury, managed nonoperatively. Polyp of colon 07/2010; 12/03/12 : multiple polyps including tubular adenomas and pa ndiverticulosis. 2016:sessile serrated adenoma/Dr.Suarez Heart murmur normal echocardiogram Acute gouty arthritis (05/14/17) Diverticulosis of colon without diverticulitis GERD (gastroesophageal reflux disease) Surgical History History of colonoscopy (~10/2020) Hx of breast biopsy Left Status post abdominal hysterectomy Social History Smoking/Tobacco Use Status: Former Tobacco Use tobacco type: cigarettes Quit Date: 06/13/12 Pack-years: 25 Second Hand Exposure: Yes Smoking risk assessment performed?: Yes Alcohol Intake: former Drug use: Never Substance use type: does not use Details: alcohol: t-7 Adopted: Yes Caregiver/Support person: No Household members: spouse Housing: house Number of Children: 2 number of grandchildren: 3 Do you need help understanding health information?: Never Pets and animals: Yes Pets and animals: dog(s) Sexually active: No Do you think of yourself as: straight/heterosexual Current gender identity: female What is your relationship status?: How often do you talk on the phone with friends or family?: twice per week How often do you get together with friends or relatives?: once per week How often do you attend orthodox or amish services?: 4 or more times per year Do you belong to any clubs or organized social groups?: yes Panel score (0-1 are the most socially isolated patients): 4 What type of physical activity do you participate in: none and decline to answer Duration: 15-30 minutes/day Frequency: 3-4 times per week Jessica/Zoroastrian: Yazidism Special jessica needs: No Agree to transfusion: Yes Seatbelt use: always Drive intox or ride w/intox yard driver: No Do you feel safe at home: Yes Do you feel safe in your relationship?: Yes Victim of physical abuse: No Victim of emotional abuse: No Victim of sexual abuse: No Would you like helpful sources: No Time Spent with Patient Time Spent with Patient: 70-84 minutes4 Time was spent: preparing to see the patient(eg.review tests), obtaining and/or reviewing separately otained hiistory, ordering medications,tests, procedures, referring, communicating with other health pet care technician, indepentently interpreting results, counseling the patient, care coordination and other
--- NOTE | 2023-10-14 14:49 | PDOC.HHF2F ---
Home Health Referral Home Health Orders Clinical synopsis of why skilled professionals are needed: Frequent fall and symptomatic anemia on admission, received 2 PRBC's ,H&H now stable. PT recommendation for PT. Medical diagnosis necessitation home health referral: Patient has symptomatic anemia, requires frequent rest periods. Physical Therapist: Check all that apply Increase strength & endurance for safe mobility at home: Ordered To design/establish home maintenance program: Ordered Fall reduction therapy program for patient with history of frequent falls: Ordered Home safety evaluation and teaching/gait training including stair management (if applicable): Ordered Better Breathing Program: Ordered Encounter Date and Reason: I certify that a FTF encounter for this patient was performed on October 14, 2023 and that such encounter was related to the primary reason the patient requires home health services. The encounter was conducted in the following manner: By me as the certifying physician, PERITONEAL DIALYSIS REGISTERED NURSE, PA or By an inpatient physician, PERITONEAL DIALYSIS REGISTERED NURSE or PA during an inpatient stay who communicated findings to me, Certification And Authentication I certify that I composed the above information based on my clinical judgment relating to this patient's medical condition and, if applicable, clinical findings communicated to me by the NPP or inpatient physician who performed the FTF encounter. Name of Provider that will be monitoring home health services: Rachel Cortez
--- NOTE | 2023-10-14 14:58 | CMDISCH_ITS ---
Date of service: 10/14/23 Time of Service: 14:58 LACE Index Scoring Tool Questions: Length of Stay (in days): 3 Was the patient admitted via the E.D.?: Yes Comorbidities: Chronic Pulmonary Disease and Liver or Renal Disease E.D. Visits: 1 Answers: Total Score: 12 Risk of Readmission: High Risk Care Management Discharge Plan Reason for Hospitalization: Acute anemia and frequent falls Discharge Plan: Ariella will return home today with new orders for HH PT. CM sent a referral to [facility] for termite control representative planning. Her daughter will drive her home via private vehicle when ready. She will follow up with her PCP and discharge plan of care. She is happy to be going home. Patient/Family Education Needs: Review discharge instructions and limitations, discussion of self care needs including ask me three. Services Needed at Discharge: Home Health Care Services (new HH PT) SDOH Health Related Social Needs: No Data to Display
--- NOTE | 2023-10-14 15:39 | W.PM.ENDDOP ---
Date of service: 10/14/23 Time of Service: 13:15 Endoscopy Report PROCEDURE DESCRIPTION: Procedure: Esophagogastroduodenoscopy with cold forcep biopsies Pre-op Diagnosis: Anemia Post-op Diagnosis: linitis plastica vs. severe gastric polyposis/chronic gastritis Surgeon: Susan Bianchi Assist: None Anesthesia: Anesthesia monitoring Indication: 78-year-old woman with chronic anemia. Findings: Findings in the stomach are diffuse and severe. Makes me think of linitis plastica is a possible explanation for the findings. Biopsies were taken in the antrum and the body. I limited the number of the biopsies because each time I would biopsy, her tissue would start to bleed profusely. Her platelet count is only in the 80s. Her duodenum was otherwise normal and there were no significant esophageal findings. There were definitely no esophageal varices. Complications: None EBL: 20-30 cc Surveillance/follow-up recommendations: I am quite suspicious that the visual appearance of her stomach represents linitis plastica. Hopefully biopsies confirm this but this lethal condition famously has negative biopsy results. Specimens removed: Yes Grafts or implants: None Procedure in detail: Written consent was obtained from the patient who was in agreement with the risks, benefits and indications for the procedure. The patient was taken to the endoscopy suite and laid in the left lateral decubitus position. We performed a timeout. When we were all in agreement, anesthesia was administered and we began the procedure. The endoscope was easily passed down into the stomach, through a patent pylorus and into D3. The findings and interventions and diagnostics are noted above. The endoscope was removed, the patient tolerated the procedure well.
[2023-10-15 10:33] LABS: Transferrin 343 mg/dL (201-352)
== END 2023-10-14 16:00 | disposition home health service (06) | DRG 812 ==
LOC: ER 20:28 → MS 21:26
PROVIDERS: Internal Medicine; Nurse Practitioner Acute Care; Nurse Practitioner Family; Student in an Organized Health Care Education/Training Program; Admitting Provider Family Medicine; Emergency Provider Emergency Medicine; PCP Nurse Practitioner Family; Visit Provider Family Medicine
PROC: 0DJ68ZZ Inspection of Stomach, Via Natural or Artificial Opening Endoscopic (ICD-10-PCS; CPT 43235; principal; 2023-10-14 13:45)
DX: D62 Acute posthemorrhagic anemia (principal); C16.8 Malignant neoplasm of overlapping sites of stomach; R18.8 Other ascites; Z91.81 History of falling; D69.6 Thrombocytopenia, unspecified; I10 Essential (primary) hypertension; M20.42 Other hammer toe(s) (acquired), left foot; M20.41 Other hammer toe(s) (acquired), right foot; M54.9 Dorsalgia, unspecified; E78.5 Hyperlipidemia, unspecified; R15.9 Full incontinence of feces; N32.81 Overactive bladder; R32 Unspecified urinary incontinence; F32.A Depression, unspecified; K21.9 Gastro-esophageal reflux disease without esophagitis; Z87.891 Personal history of nicotine dependence; I25.10 Atherosclerotic heart disease of native coronary artery without angina pectoris; K74.60 Unspecified cirrhosis of liver; R42 Dizziness and giddiness; J41.0 Simple chronic bronchitis; E66.01 Morbid (severe) obesity due to excess calories; R73.03 Prediabetes; Z68.36 Body mass index [BMI] 36.0-36.9, adult; R91.8 Other nonspecific abnormal finding of lung field; Z86.010 Personal history of colon polyps; K31.89 Other diseases of stomach and duodenum
CPT/HCPCS: 43239; 00123; 36415; 36430; 71275; 74177; 80048; 80053; 85027; 86850; 86900; 86901; 86920; 87077; 88305; 93005; 97110; 97161; 97530; 99222; 99231; 99285; 70450; 81003; 81015; 82272; 82607; 82728; 82746; 83540; 83550; 83605; 83615; 83735; 84466; 84484; 85014; 85018; 85025; 85610; 85730; 87086; 87186; 93010; 99223; 99239; J2001; J2704; J3480; J3490; P9016

== ENCOUNTER 2023-10-16 10:17 | Emergency (ER) | payer MEDICARE, SELFPAY ==
[2023-10-16] VITALS (24 sets, daily range): BP systolic 145–168; BP diastolic 33–52; PULSE 54–64; RESP 14–22; TEMP 36.6; O2SAT 92–96
--- NOTE | 2023-10-16 10:30 | DI.RAD_ITS ---
Exam(s) XR TIB/FIB LT XR FOOT LT COMPLETE XR ANKLE LT COMPLETE EXAM: XR FOOT LT COMPLETE and XR ankle LT complete and XR tib/fib LT CLINICAL HISTORY: fall, L foot pain. TECHNIQUE: 2D digital imaging was performed of the left tib/fib, ankle and foot. Eight images were obtained. AP, oblique and lateral views were obtained. COMPARISON: There are no priors for comparison. FINDINGS: BONES: There is a curvilinear density adjacent to the lateral aspect of the base of the proximal phal anx of the 4th toe. This may represent a small avulsed fracture versus dystrophic calcification. Pl ease correlate with patient's site of pain. No bony destructive lesion is seen. There is a plantar c alcaneal spur. JOINTS: No dislocation present. The joint spaces are well maintained. SOFT TISSUE: Vascular calcifications are present. IMPRESSION: Curvilinear density adjacent to the lateral aspect of the base of the proximal phalanx of the 4th toe . This may represent a soft tissue calcification versus a small avulsed fracture fragment. Please c orrelate with patient's site of pain. No other fracture or dislocation is identified. DATA REPOSITORY: RADIATION DOSE DELIVERED:
--- NOTE | 2023-10-16 10:30 | DI.CT_ITS ---
Exam(s) CT THORACIC LUMBAR SPINE WO EXAM: CT THORACIC LUMBAR SPINE WO CLINICAL HISTORY: fall, back pain. TECHNIQUE: Imaging Protocol: Axial computed tomography images with coronal and sagittal reformatted images were created and reviewed. COMPARISON: No exams were available for comparison FINDINGS: Bones: No fractures or dislocations are seen. The alignment of the spine is normal including the cerv icothoracic junction and the thoracolumbar junction. Degenerative changes are present throughout the spine. Soft tissues: The soft tissues are unremarkable. No large disk herniations are identified. Atheroscle rotic calcifications are present. IMPRESSION: No acute fracture or subluxation in the thoracic or lumbar spine. RADIATION DOSE DELIVERED: 1,724.91mGy.cm Total DLP DATA REPOSITORY: All CT scans at this facility are submitted to the National Radiology Data Registry (NRDR) Dose Index Registry (DIR) with the [employer] (A[employer]). RADIATION OPTIMIZATION: All CT scans at this facility use at least one of these dose optimization te chniques: automated exposure control; mA and/or kV adjustment per patient size (includes targeted exa ms where dose is matched to clinical indication); or iterative reconstruction.
--- NOTE | 2023-10-16 10:30 | DI.RAD_ITS ---
Exam(s) XR SHOULDER LT COMPLETE 2+V EXAM: XR SHOULDER LT COMPLETE 2+V CLINICAL HISTORY: fall, L shoulder pain. TECHNIQUE: 2D digital imaging was performed of the left shoulder. Six images were obtained. AP, Gr ashey, Y-view and axillary views were obtained. COMPARISON: No exams were available for comparison FINDINGS: BONES: No acute fracture is present. No bony destructive lesion is seen. JOINTS: No dislocation present. Mild degenerative changes are seen at the acromioclavicular joint. SOFT TISSUE: Normal. IMPRESSION: No acute fracture or dislocation. DATA REPOSITORY: RADIATION DOSE DELIVERED:
--- NOTE | 2023-10-16 10:33 | ED.GENADUL_ITS ---
Discharge Plan Disposition Patient Disposition: Home Condition: Stable Discharge Details Clinical Impression: Closed fracture of phalanx of left fourth toe, Debility Primary Care Provider: Rachel Cortez ED Provider: Jesús Read Home Meds and New Rx's Prescriptions: Continued nystatin 100,000 unit/gram powder 1 applic topical TID Qty: 30 0RF ferrous sulfate 325 mg (65 mg iron) tablet 325 mg PO BID Qty: 90 1RF ketoconazole 2 % cream 1 applic TP BID Qty: 60 1RF albuterol sulfate [ProAir HFA] 90 mcg/actuation HFA aerosol inhaler 2 puff inhalation Q6H PRN (Reason: shortness of breath or wheezing) Qty: 8.5 3RF pantoprazole [Protonix] 40 mg tablet,delayed release (DR/EC) 40 mg PO DAILY Qty: 90 3RF hydrochlorothiazide 25 mg tablet See Rx Instructions .ROUTE .COMPLEX Qty: 90 3RF Dose Instruction: TAKE ONE TABLET BY MOUTH EVERY DAY Rx Instructions: TAKE ONE TABLET BY MOUTH EVERY DAY lisinopril 40 mg tablet See Rx Instructions .ROUTE .COMPLEX Qty: 90 4RF Dose Instruction: TAKE ONE TABLET BY MOUTH EVERY DAY Rx Instructions: TAKE ONE TABLET BY MOUTH EVERY DAY sertraline 50 mg tablet See Rx Instructions .ROUTE .COMPLEX Qty: 90 4RF Dose Instruction: TAKE ONE TABLET BY MOUTH EVERY DAY Rx Instructions: TAKE ONE TABLET BY MOUTH EVERY DAY amlodipine 5 mg Tablet 5 mg PO DAILY Qty: 30 0RF cyanocobalamin (vitamin B-12) [Vitamin B-12] 500 mcg Tablet 1,000 mcg PO DAILY Qty: 60 0RF docusate sodium [Colace] 100 mg Capsule 100 mg PO TID PRN PRNQty: 90 0RF Discharge Instructions Instructions: Toe Fracture (ED), Durable Power of Railroad Engineer for Healthcare Decisions (ED), Fall Prevention for Older Adults (ED) Additional Instructions: You were seen in the emergency department for your falls with left foot pain, there is a tiny fracture at the base of the left fourth toe, no fractures of any bones of the spine, no fracture in the left shoulder, no intracranial abnormality. There is likely some onset of dementia that should be evaluated by your primary care provider. Your biopsy results from your recent upper endoscopy have not returned yet. Your anemia has improved on today's blood work. You were evaluated by physical therapy here in the department, you need to have 1 person assist you when transferring which includes getting up, toileting, you need to use a walker during this as well. I am following a home health referral for PT and OT and social media assistant to help you navigate upcoming health events. Please return for any increased falls, inability to care at home, profound anemia or dizziness or near fainting, chest pain, abdominal pain, poor p.o. intake or any other emergent concerns. Referrals: Care Management [Provider Group] [facility] Physical Therapy [Provider Group] [facility] [Provider Group] [facility] [Outside] [facility], Physical Therapy [Outside] Rachel Cortez NP [Primary Care Provider] - HPI General Date/Time Provider Initiated Documentation: 10/16/23 10:27 . HPI Narrative: 78 year-old female presents to ED today by EMS with a chief complaint of fall at home, with onset last week- patient has been becoming too much for the family to handle at home- hasn't been able to walk, they question if she has dementia- and she has pending biopsy's from an EGD due to profound anemia that questions linitis plastica, a type of gastric cancer. Quality described as difficult to describe, states L ankle/foot/lower leg pain, L shoulder pain, later endorsing head and neck and low back pain, no radiation to numbness/tingling, slurred speech, overt bruising, abdominal pain. Severity is described as unable to quantify. Palliating factors include nothing specific. Provoking factors include nothing specific. Events leading up to the incident/Associated Symptoms: Patient has not had work-up for dementia, family is concerned she may need hospice care, though her biopsy has not returned, has not sought any arrangement for placement via PCP. Patient not anticoagulated. Related Data Home Medications Medication Instructions Recorded Confirmed ferrous sulfate 325 mg (65 mg 325 mg PO BID #90 tabs 03/10/21 10/16/23 iron) tablet ketoconazole 2 % topical cream 1 applic topical BID #60 grams 10/09/22 10/16/23 albuterol sulfate 90 mcg/actuation 2 puff inhalation Q6H PRN 11/21/22 10/16/23 aerosol inhaler (ProAir HFA) shortness of breath or wheezing #8.5 grams pantoprazole 40 mg tablet,delayed 40 mg PO DAILY #90 tab-caps 03/22/23 10/16/23 release (Protonix) hydrochlorothiazide 25 mg tablet See Rx Instructions .Route 07/02/23 10/16/23 .COMPLEX #90 tabs lisinopril 40 mg tablet See Rx Instructions .Route 09/26/23 10/16/23 .COMPLEX #90 tabs sertraline 50 mg tablet See Rx Instructions .Route 09/26/23 10/16/23 .COMPLEX #90 tabs nystatin 100,000 unit/gram topical 1 applic topical TID #30 grams 09/27/23 10/16/23 powder amlodipine 5 mg tablet 5 mg PO DAILY #30 tabs 10/14/23 10/16/23 cyanocobalamin (vitamin B-12) 500 1,000 mcg (2 x 500 mcg) PO DAILY 10/14/23 10/16/23 mcg tablet (Vitamin B-12) #60 tabs docusate sodium 100 mg capsule 100 mg PO TID PRN PRN #90 caps 10/14/23 10/16/23 (Colace) Previous Rx's Medication Instructions Recorded ferrous sulfate 325 mg (65 mg 325 mg PO BID #90 tabs 03/10/21 iron) tablet ketoconazole 2 % topical cream 1 applic topical BID #60 grams 10/09/22 albuterol sulfate 90 mcg/actuation 2 puff inhalation Q6H PRN 11/21/22 aerosol inhaler (ProAir HFA) shortness of breath or wheezing #8.5 grams pantoprazole 40 mg tablet,delayed 40 mg PO DAILY #90 tab-caps 03/22/23 release (Protonix) hydrochlorothiazide 25 mg tablet See Rx Instructions .Route 07/02/23 .COMPLEX #90 tabs lisinopril 40 mg tablet See Rx Instructions .Route 09/26/23 .COMPLEX #90 tabs sertraline 50 mg tablet See Rx Instructions .Route 09/26/23 .COMPLEX #90 tabs nystatin 100,000 unit/gram topical 1 applic topical TID #30 grams 09/27/23 powder amlodipine 5 mg tablet 5 mg PO DAILY #30 tabs 10/14/23 cyanocobalamin (vitamin B-12) 500 1,000 mcg (2 x 500 mcg) PO DAILY 10/14/23 mcg tablet (Vitamin B-12) #60 tabs docusate sodium 100 mg capsule 100 mg PO TID PRN PRN #90 caps 10/14/23 (Colace) Allergies Allergy/AdvReac Type Severity Reaction Status Date / Time Metronidazole HCl AdvReac Severe stomach Verified 10/16/23 10:45 [From Flagyl] upset amoxicillin [Amoxicillin] AdvReac Intermediate GI UPSET Verified 10/16/23 10:45 clavulanic acid AdvReac Intermediate GI UPSET Verified 10/16/23 10:45 doxycycline AdvReac Intermediate severe Verified 10/16/23 10:45 reflux erythromycin base AdvReac Intermediate Nausea Verified 10/16/23 10:45 [Erythromycin Base] meloxicam AdvReac Intermediate Nausea Verified 10/16/23 10:45 Sulfa (Sulfonamide AdvReac Intermediate NAUSEA AND Verified 10/16/23 10:45 Antibiotics) VOMITING doxycycline AdvReac Other (See Uncoded 10/16/23 10:45 Comment) General Stated Complaint: GenMedical STEFANIA: 3 Review of Systems All systems reviewed & are unremarkable except as noted in HPI and below Exam Narrative Exam Narrative: GENERAL APPEARANCE: Well-nourished, non-toxic, awake and alert, atraumatic, no acute distress. SKIN: Warm, pink, dry, intact, without rashes/lesions/ulcerations. HEAD: Normocephalic, atraumatic, normal hair distribution for gender/age. EYES: Pupils PERRLA, EOMs intact without nystagmus, normal conjunctiva, no exudates on lids/lashes. ENT: Nares patent, no circumoral cyanosis, no facial swelling NECK: Supple, trachea midline, painless cervical ROM. LUNGS/CHEST: Lungs CTA bilaterally- no rhonchi/rales/wheezes diffusely, non- labored respirations, normal A/P diameter, symmetrical expansion, no chest wall deformity HEART (CV/PV): Regular rate and rhythm without murmur, no peripheral edema, no JVD. ABDOMEN: Soft, non-distended, no guarding, no tenderness. MSK: Normal ROM, no swelling/deformity to bilateral UEs or LEs, moving all extremities without weakness, no cyanosis, spine midline without tenderness, nor mal curvature. No midline vertebral tenderness/crepitus/step-offs, there is some left SI tenderness without overt deformity, left shoulder tenderness without crepitus or swelling or ecchymosis, neurovascularly intact in the left upper extremity, mild tenderness to the left foot and ankle without overt swelling or deformity or ecchymosis NEURO: Mental Status AAOx4 - alert to person, place, time, events - slight confusion of events intermittently No facial droop, no forehead involvement. Motor: No focal weakness - strength 5/5 in bilateral UEs and LEs, proximal and distal, symmetric. Sensory: sensation intact to light touch globally. Gait antalgic with walker. PSYCH: euthymic, cooperative, pleasant, appropriate speech Course Vital Signs Vital signs: Vital Signs Temperature 36.6 C 10/16/23 10:20 Pulse 60 10/16/23 10:20 Respiratory Rate 22 10/16/23 10:20 Blood Pressure 145/33 H 10/16/23 10:20 Pulse Oximetry 95 10/16/23 10:20 Temperature 36.6 C 10/16/23 10:20 Temperature Source Temporal Artery Scan 10/16/23 10:20 Pulse 60 10/16/23 10:20 Respiratory Rate 22 10/16/23 10:20 Respiratory Effort Normal 10/16/23 10:27 Blood Pressure 145/33 H 10/16/23 10:20 Blood Pressure Position Supine 10/16/23 10:20 Pulse Oximetry 95 10/16/23 10:20 Oxygen Delivery Method Room Air 10/16/23 10:20 Oxygen Flow Rate 0 10/16/23 10:20 Pain Level 10 10/16/23 10:20 Medical Decision Making This dictation utilizes [id number] dictation software and may contain unedited grammatical errors. 78 y/o F presents to ED today with a chief complaint of fall last week, left shoulder and left foot pain, later endorsing diffuse back pain, also endorsing head pain. Patient likely has undiagnosed dementia, was recently seen with endoscopy after an ER visit with transfusions, possibly has a poor prognosis gastric tumor, biopsy is still pending. Patient denies significant head strike, has no signs of major head trauma, no diffuse ecchymosis, denies palpitations or vertigo at onset of fall, unclear when the fall was most likely last week, have noted decreased mobility throughout the week. Patients' medical history: Osteoarthritis, history of tobacco use, GERD, thrombocytopenia, COPD, obesity, prediabetes, hypertension, cirrhosis. Family and social history: No exercise regimen, lives at home with who is still working part-time. Pertinent exam findings / vital signs include tenderness to the left lower extremity below mid means, left shoulder tenderness without crepitus or overt deformity, benign cardiopulmonary status, neuro likely baseline with some dementia symptoms. Differential / pathologies of concern include fracture, ICH, sprain or strain, contusion, debility, dementia. Diagnostic studies of: -CT head and C-spine, CT T and L-spine, x-ray of the tib-fib/ankle/left foot, x- ray left shoulder. -Basic labs of CBC, CMP-improved hemoglobin to 8.7 today, platelets stable in the 80s, no major actionable abnormality on CMP -No acute findings on imaging safe for tiny fracture of proximal phalanx of the left fourth toe, placed in cast shoe Interventions of: -Cast shoe, walker use, PT OT consults, care management consulted, home health referral. ED Course/Assessment/Plan: 78-year-old female presents with fall last week, having problems with getting around the home, family feels she may be too much to handle for them to care for at home. She had a recent EGD with suspicious diagnosis for possible stomach tumor called dario plasticmari. Labs are unremarkable at today, platelets and hemoglobin are stable, hemoglobin slightly improved even. She had a fall with left foot and left shoulder pain, endorse some head and back pain as well, CTs of the head and C/T/L-spine were unremarkable for any acute injury. X-ray of shoulder is negative for fracture, there is a tiny avulsion fracture at the base of the fourth left toe which was treated with a cast shoe. I had PT consult on the patient with a walker, they approved for home health, PT OT, likely [facility] visits as well for placement planning. Patient needs to be assisted with 1 other person and a walker to transfer. I discussed this with the family about ordering home health for the patient and that they stated they could hire somebody else for other times of the day. Findings not consistent with inability to transfer at home, spinal cord or column injury, intracranial emergent pathology, profound anemia requiring transfusion. Disposition of Closed Fracture of Phalanx of Left Fourth Toe, Debility. Patient verbalized understanding of the plan and return to ED criteria and engaged in shared decision making. Medical Records Medical records reviewed: Yes I reviewed the patient's medical records. Imaging Data Radiologic Study: Attestation: I personally reviewed and interpreted this imaging study as follows: Imaging: CT Scan Radiologist's impression: EXAM: CT HEAD CERVICAL SPINE WO CLINICAL HISTORY: fall, now endorsing head pain. TECHNIQUE: Imaging Protocol: Axial computed tomography images with coronal and sagittal reformatted images were created and reviewed COMPARISON: CT CT HEAD WO from 10/11/2023 FINDINGS: CT Head: Ventricles and Extra axial spaces: Normal in size and morphology for the patient's age. Hemorrhage: None. Cerebral parenchyma: There are areas of decreased attenuation in the white matter consistent with chronic microvascular ischemic disease. No evidence of an acute territorial infarct. Midline shift: None. Brainstem/Cerebellum: Normal. Calvarium: Normal. Visualized Paranasal sinuses/Mastoids: Mild mucosal thickening is seen in the maxillary sinuses. There is also mild mucosal thickening in the left sphenoid sinus. The mastoid air cells are clear. Soft Tissues: Unremarkable. CT Cervical Spine: Bones: No acute fracture or subluxation. Age-appropriate degenerative changes are seen in the cervical spine. There is straightening of the normal cervical lordosis which is likely degenerative in nature. Soft Tissues: Unremarkable. Lung Apices: Clear. IMPRESSION: 1. No acute intracranial process. 2. No acute fracture or subluxation in the cervical spine. Radiologic Study #2: Attestation: I personally reviewed and interpreted this imaging study as follows: Imaging: CT Scan Radiologist's impression: EXAM: CT THORACIC LUMBAR SPINE WO CLINICAL HISTORY: fall, back pain. TECHNIQUE: Imaging Protocol: Axial computed tomography images with coronal and sagittal reformatted images were created and reviewed. COMPARISON: No exams were available for comparison FINDINGS: Bones: No fractures or dislocations are seen. The alignment of the spine is normal including the cervicothoracic junction and the thoracolumbar junction. Degenerative changes are present throughout the spine. Soft tissues: The soft tissues are unremarkable. No large disk herniations are identified. Atherosclerotic calcifications are present. IMPRESSION: No acute fracture or subluxation in the thoracic or lumbar spine. Radiologic Study #3: Attestation: I personally reviewed and interpreted this imaging study as follows: Imaging: X-Ray Radiologist's impression: EXAM: XR SHOULDER LT COMPLETE 2+V CLINICAL HISTORY: fall, L shoulder pain. TECHNIQUE: 2D digital imaging was performed of the left shoulder. Six images were obtained. AP, Grashey, Y-view and axillary views were obtained. COMPARISON: No exams were available for comparison FINDINGS: BONES: No acute fracture is present. No bony destructive lesion is seen. JOINTS: No dislocation present. Mild degenerative changes are seen at the acromioclavicular joint. SOFT TISSUE: Normal. IMPRESSION: No acute fracture or dislocation. Radiologic Study #4: Attestation: I personally reviewed and interpreted this imaging study as follows: Imaging: X-Ray Radiologist's impression: Exam(s) XR TIB/FIB LT XR FOOT LT COMPLETE XR ANKLE LT COMPLETE EXAM: XR FOOT LT COMPLETE and XR ankle LT complete and XR tib/fib LT CLINICAL HISTORY: fall, L foot pain. TECHNIQUE: 2D digital imaging was performed of the left tib/fib, ankle and foot. Eight images were obtained. AP, oblique and lateral views were obtained. COMPARISON: There are no priors for comparison. FINDINGS: BONES: There is a curvilinear density adjacent to the lateral aspect of the base of the proximal phalanx of the 4th toe. This may represent a small avulsed fracture versus dystrophic calcification. Please correlate with patient's site of pain. No bony destructive lesion is seen. There is a plantar calcaneal spur. JOINTS: No dislocation present. The joint spaces are well maintained. SOFT TISSUE: Vascular calcifications are present. IMPRESSION: Curvilinear density adjacent to the lateral aspect of the base of the proximal phalanx of the 4th toe. This may represent a soft tissue calcification versus a small avulsed fracture fragment. Please correlate with patient's site of pain. No other fracture or dislocation is identified. Lab Data Lab results reviewed: Yes I reviewed the patient's lab results. Labs: Laboratory Tests Range/Units 10/16/23 11:05 WBC (4.4-10.8) 10^3/uL 4.38 L RBC (3.93-5.22) 10^6/uL 3.96 Hgb (11.2-15.7) g/dL 8.7 L Hct (36.0-46.0) % 30.8 L MCV (80-95) fL 78 L MCH (27.0-33.0) pg 22.0 L MCHC (32.0-36.0) % 28.2 L RDW (11.7-14.6) % 20.2 H Plt Count (130-400) 10^3/uL 83 L MPV (8.0-11.0) fL Immature Gran % % 0.2 Neutrophils % % 67.0 Lymphocytes % % 19.4 Monocytes % % 8.4 Eosinophils % % 4.1 Basophils % % 0.9 Nucleated RBC % (0.0-0.3) % 0.0 Absolute Neutrophils (1.2-6.7) 10^3/uL 2.93 Absolute Lymphocytes (1.2-3.4) 10^3/uL 0.85 L Absolute Monocytes (0.1-0.8) 10^3/uL 0.37 Absolute Eosinophils (0.0-0.7) 10^3/uL 0.18 Absolute Basophils (0.0-0.2) 10^3/uL 0.04 RBC Morphology See Below Hypochromasia 1+ Anisocytosis 2+ Microcytosis 1+ Sodium (136-145) mmol/L 142 Potassium (3.5-5.1) mmol/L 3.7 Chloride (98-107) mmol/L 104 Carbon Dioxide (21.0-32.0) mmol/L 30.2 Anion Gap (3-11) mmol/L 7.8 BUN (7-18) mg/dL 19 H Creatinine (0.55-1.02) mg/dL 0.9 Est GFR (CKD-EPI 2020) (mL/min/1.73m2) 65.44 Glucose (74-106) mg/dL 103 Calcium (8.5-10.1) mg/dL 9.2 Total Bilirubin (0.2-1.0) mg/dL 1.3 H AST (15-37) U/L 30 ALT (14-59) U/L 36 Alkaline Phosphatase (46-116) U/L 105 Total Protein (6.4-8.2) g/dL 7.4 Albumin (3.4-5.0) g/dL 3.9 Quality:SDOH Health Related Social Needs: No Data to Display PFSH All Active Problems (Updated 10/16/23 @ 15:09 by SINDHU Jacobs) Debility (Acute) Closed fracture of phalanx of left fourth toe (Acute) Acute blood loss anemia (Acute) Thrombocytopenia (Chronic) Hx of falling (Acute) Osteoarthritis of carpometacarpal joint of left thumb (Chronic) 40 mg Depo: 04/12/23 Back pain (Acute) Bunion, right foot (Acute) Acquired hammer toe of left foot (Acute) Acquired hammer toe of right foot (Acute) Toe pain, left (Acute) Toe pain, right (Acute) Trigger thumb of right hand (Acute) Chronic obstructive lung disease (Chronic) PFTs September 2020 with FVC of 1.88 (77% predicted), FEV1 of 1.37 (75% predicted) and FEV1/FVC of 73%, TLC 4.70 (103% predicted), DLCO 76% Depressive disorder (Acute) Essential hypertension (Chronic 09/08/13) Hyperlipidemia (Chronic 08/12/12) Fecal incontinence (Acute) OAB (overactive bladder) (Acute) Urinary incontinence (Acute) Pulmonary nodules/lesions, multiple (Acute) ongoing evaluation at [facility] Exertional dyspnea (Chronic) ongoing symptoms, negative cardiopulmonary evaluation at [facility] Morbid obesity with BMI of 40.0-44.9, adult (Acute) Prediabetes (Acute) Phlebitis of right leg (Acute) Osteoarthritis of right knee (Acute) DEPO MEDROL 12/19/22, 08/23/22; 05/21/22 Pancytopenia (Acute) Corns and callosities (Acute) 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 Kim, [facility] Medical History Generalized osteoarthritis of multiple sites present, but not very bothersome - affects back, hands History of tobacco abuse quit 2014, smoked 1/2 ppd x 50 yrs Nonobstructive atherosclerosis of coronary artery (~05/2021) 05/15/21: Coronary calcium score 331, consistent with heavy atherosclerotic plaque burden and 80th percentile rank based on age race and gender nonobstructive calcified coronary artery disease. Tubular adenoma (~10/2020) Fracture of right distal radius (05/30/20) after a fall at home, tripping injury, managed nonoperatively. Polyp of colon 07/2010; 12/03/12 : multiple polyps including tubular adenomas and pandiverticulosis. 2016:sessile serrated adenoma/ Heart murmur normal echocardiogram Acute gouty arthritis (05/14/17) Diverticulosis of colon without diverticulitis GERD (gastroesophageal reflux disease) Surgical History History of colonoscopy (~10/2020) Hx of breast biopsy Left Status post abdominal hysterectomy Social History Smoking/Tobacco Use Status: Former Tobacco Use tobacco type: cigarettes Quit Date: 06/13/12 Pack-years: 25 Second Hand Exposure: Yes Smoking risk assessment performed?: Yes Alcohol Intake: former Drug use: Never Substance use type: does not use Details: alcohol: t-7 Adopted: Yes Caregiver/Support person: No Household members: spouse Housing: house Number of Children: 2 number of grandchildren: 3 Do you need help understanding health information?: Never Pets and animals: Yes Pets and animals: dog(s) Sexually active: No Do you think of yourself as: straight/heterosexual Current gender identity: female What is your relationship status?: How often do you talk on the phone with friends or family?: twice per week How often do you get together with friends or relatives?: once per week How often do you attend methodist or adventist services?: 4 or more times per year Do you belong to any clubs or organized social groups?: yes Panel score (0-1 are the most socially isolated patients): 4 What type of physical activity do you participate in: none and decline to answer Duration: 15-30 minutes/day Frequency: 3-4 times per week Jessica/Congregation: [employer] Special jessica needs: No Agree to transfusion: Yes Seatbelt use: always Drive intox or ride w/intox jukebox route driver: No Do you feel safe at home: Yes Do you feel safe in your relationship?: Yes Victim of physical abuse: No Victim of emotional abuse: No Victim of sexual abuse: No Would you like helpful sources: No
--- NOTE | 2023-10-16 11:00 | DI.CT_ITS ---
Exam(s) CT HEAD CERVICAL SPINE WO EXAM: CT HEAD CERVICAL SPINE WO CLINICAL HISTORY: fall, now endorsing head pain. TECHNIQUE: Imaging Protocol: Axial computed tomography images with coronal and sagittal reformatted images were created and reviewed COMPARISON: CT CT HEAD WO from 10/11/2023 FINDINGS: CT Head: Ventricles and Extra axial spaces: Normal in size and morphology for the patient's age. Hemorrhage: None. Cerebral parenchyma: There are areas of decreased attenuation in the white matter consistent with chr onic microvascular ischemic disease. No evidence of an acute territorial infarct. Midline shift: None. Brainstem/Cerebellum: Normal. Calvarium: Normal. Visualized Paranasal sinuses/Mastoids: Mild mucosal thickening is seen in the maxillary sinuses. The re is also mild mucosal thickening in the left sphenoid sinus. The mastoid air cells are clear. Soft Tissues: Unremarkable. CT Cervical Spine: Bones: No acute fracture or subluxation. Age-appropriate degenerative changes are seen in the cervica l spine. There is straightening of the normal cervical lordosis which is likely degenerative in natu re. Soft Tissues: Unremarkable. Lung Apices: Clear. IMPRESSION: 1. No acute intracranial process. 2. No acute fracture or subluxation in the cervical spine. RADIATION DOSE DELIVERED: 1,417.42mGy.cm Total DLP DATA REPOSITORY: All CT scans at this facility are submitted to the National Radiology Data Registry (NRDR) Dose Index Registry (DIR) with the [employer] (ACR). RADIATION OPTIMIZATION: All CT scans at this facility use at least one of these dose optimization te chniques: automated exposure control; mA and/or kV adjustment per patient size (includes targeted exa ms where dose is matched to clinical indication); or iterative reconstruction.
[2023-10-16 11:11] LABS: Abs Immature Grans 0.01 10^3/uL (0.0-0.06); Absolute Basophil Count 0.04 10^3/uL (0.0-0.2); Absolute Eosinophil Count 0.18 10^3/uL (0.0-0.7); Absolute Lymphocyte Count 0.85 10^3/uL (1.2-3.4); Absolute Monocyte Count 0.37 10^3/uL (0.1-0.8); Absolute Neutrophil Count 2.93 10^3/uL (1.2-6.7); Basophils % 0.9 %; Eosinophils % 4.1 %; HCT 30.8 % (36.0-46.0); HGB 8.7 g/dL (11.2-15.7); Immature Grans % 0.2 %; Lymphocytes % 19.4 %; MCHC 28.2 % (32.0-36.0); MCV 78 fL (80-95); Monocytes % 8.4 %; RBC 3.96 10^6/uL (3.93-5.22); RDW 20.2 % (11.7-14.6); RDW-SD 55.6 fL; WBC 4.38 10^3/uL (4.4-10.8)
[2023-10-16 11:21] LABS: Anisocytosis 2+; Diff Comment Diff Reviewed; Hypochromasia 1+; Microcytosis 1+; Platelet Count 83 10^3/uL (130-400)
[2023-10-16 11:25] LABS: ALT 36 U/L (14-59); AST 30 U/L (15-37); Albumin 3.9 g/dL (3.4-5.0); Alkaline Phosphatase 105 U/L (46-116); Anion Gap 7.8 mmol/L (3-11); BUN 19 mg/dL (7-18); Bilirubin, Total 1.3 mg/dL (0.2-1.0); CO2 30.2 mmol/L (21.0-32.0); CREATININE 0.9 mg/dL (0.55-1.02); Calcium 9.2 mg/dL (8.5-10.1); Chloride 104 mmol/L (98-107); Estimated GFR 65.44 (mL/min/1.73m2); Glucose 103 mg/dL (74-106); Potassium 3.7 mmol/L (3.5-5.1); Sodium 142 mmol/L (136-145); Total Protein 7.4 g/dL (6.4-8.2)
--- NOTE | 2023-10-16 14:25 | PT.INIE ---
PT Notes Visit Reasons: [place]-Foot Pain Inpatient Physical Therapy Evaluation Date: 10/16/2023 Referring Doctor: SINDHU Petersen PT Orders: PT CONSULT: Safety Consult for D/C Precautions: fall risk. Satndard precautions. Activity as tolerated. Post-op shoe on R and regular shoe on L when OOB. Patient Profile/Admitting Diagnosis: Ariella is a pleasantly confused 78-year-old female presenting to the ED on 10/16/2023 with pain in the L foot. Foot x-ray revealed suspicion for either small tissue calcification versus avuslion fracture of base of L fourth proximal phalanx fracture of the 4th toe T-L spine CT shoulder x-ray negative for fracture/dislocation. CT of head reassuring. PMHX: All Active Problems (Updated 10/16/23 @ 15:09 by SINDHU Jacobs) Debility (Acute) Closed fracture of phalanx of left fourth toe (Acute) Acute blood loss anemia (Acute) Thrombocytopenia (Chronic) Hx of falling (Acute) Osteoarthritis of carpometacarpal joint of left thumb (Chronic) 40 mg Depo: 04/12/23 Back pain (Acute) Bunion, right foot (Acute) Acquired hammer toe of left foot (Acute) Acquired hammer toe of right foot (Acute) Toe pain, left (Acute) Toe pain, right (Acute) Trigger thumb of right hand (Acute) Chronic obstructive lung disease (Chronic) PFTs September 2020 with FVC of 1.88 (77% predicted), FEV1 of 1.37 (75% predicted) and FEV1/FVC of 73%, TLC 4.70 (103% predicted), DLCO 76% Depressive disorder (Acute) Essential hypertension (Chronic 09/08/13) Hyperlipidemia (Chronic 08/12/12) Fecal incontinence (Acute) OAB (overactive bladder) (Acute) Urinary incontinence (Acute) Pulmonary nodules/lesions, multiple (Acute) ongoing evaluation at [facility] Exertional dyspnea (Chronic) ongoing symptoms, negative cardiopulmonary evaluation at [facility] [place] Morbid obesity with BMI of 40.0-44.9, adult (Acute) Prediabetes (Acute) Phlebitis of right leg (Acute) Osteoarthritis of right knee (Acute) DEPO MEDROL 12/19/22, 08/23/22; 05/21/22 Pancytopenia (Acute) Corns and callosities (Acute) 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 Kim, [facility] [place] Medical History Generalized osteoarthritis of multiple sites present, but not very bothersome - affects back, hands History of tobacco abuse quit 2014, smoked 1/2 ppd x 50 yrs Nonobstructive atherosclerosis of coronary artery (~05/2021) 05/15/21: Coronary calcium score 331, consistent with heavy atherosclerotic plaque burden and 80th percentile rank based on age race and gender nonobstructive calcified coronary artery disease. Tubular adenoma (~10/2020) Fracture of right distal radius (05/30/20) after a fall at home, tripping injury, managed nonoperatively. Polyp of colon 07/2010; 12/03/12 : multiple polyps including tubular adenomas and pandiverticulosis. 2016:sessile serrated adenoma/ Heart murmur normal echocardiogram Acute gouty arthritis (05/14/17) Diverticulosis of colon without diverticulitis GERD (gastroesophageal reflux disease) Surgical History History of colonoscopy (~10/2020) Hx of breast biopsy Left Status post abdominal hysterectomy Social History/Home Situation: Lives with in a private home. She lives with her and has a dog. She reports being independent at baseline without assistive device. 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 Equipment Owned/DME: [employer] Subjective: Grimaces with intermittent spasms in her back throughout session. Complained of pain in her R foot with weight bearing. Per and daughter, patient typically is alone at home during the day as the family does it edy business. did express willingness to augment for needed care for that insurance may not be able to cover. Objective: General Observation: Resting in bed. Telemetry monitoring in place. Mental Status: Alert and orientated as to person. Able to follow single-step commands. Intermittently lost focus and needed redirection at least 3x during this session. Pain: Moderate pain in low back and L foot that limited mobility performance ROM: Right Upper Extremity: Shoulder Flexion allows up to 100 degrees. Shoulder abduction allows up to 90 degrees. Elbow flexion WFL. Wrist flexion WFL. Functional opening and closing of hand WFL. Left Upper Extremity: Shoulder Flexion allows up to 100 degrees. Shoulder abduction allows up to 90 degrees. Elbow flexion WFL. Wrist flexion WFL. Functional opening and closing of hand WFL. Right Lower Extremity: Hip flexion allows up to 100 degrees. Hip abduction WFL. Knee flexion WFL. Ankle dorsiflexion to neutral only. Ankle plantarflexion WFL. Left Lower Extremity: Hip flexion allows up to 100 degrees. Hip abduction WFL. Knee flexion WFL. Ankle dorsiflexion to neutral only. Ankle plantarflexion WFL. Strength: Right Upper Extremity: Shoulder flexors 3-/5. Shoulder abductors 3-/5. Elbow flexors 4-/5. Elbow extensors 4-/5. Restorative Care Technician strong. Left Upper Extremity: Shoulder flexors 3-/5. Shoulder abductors 3-/5. Elbow flexors 4-/5. Elbow extensors 4-/5. Restorative Care Technician strong. Right Lower Extremity: Hip flexors 3-/5. Hip abductors 3-/5. Knee flexors 4-/5. Knee extensors 4-/5. Ankle dorsiflexors 3-/5. Ankle plantarflexors 4-/5. Left Lower Extremity: Hip flexors 3-/5. Hip abductors 3-/5. Knee flexors 4-/5. Knee extensors 4-/5. Ankle dorsiflexors 3-/5. Ankle plantarflexors 4-/5. Sensation: Intact as to pain and light pressure in bilateral lower extremities Bed Mobility/Transfers: Minimal cueing provided for use of B hands as needed for support, movement sequence, AD management, and posture to reduce fall risk and minimize pain report Sit to supine moderate ssist Sit to stand minimal assist with FWW Stand to sit minimal assist with FWW Gait: Facilitated safe and correct performance of level surface ambulation covering a distance of 40 feet using front wheeled walker with moderate verbal cueing for increased step height and length as well as safe gait pattern, AD management, posture, and directional changes to minimize pain and reduce fall risk. Minimal assist along with wheelchair follow provided for safety. Balance: Static Sitting: Normal Dynamic Sitting: Good Static Standing: Fair Dynamic Standing: Fair Special Tests: Mobility Limitations Standardized Measure [facility] 6 clicks Basic Mobility Inpatient Short Form: Raw Score: 15 CMS Score: 58% deficit Informed Consent/Education: Patient instructed in purpose of PT consult. Assessment: Requested another psot op shoe for the R side to ensure equal leg length on B sides to minimize pain while walking. Impaired cognition, pain in L foot, ongoing weakness and chronic back pain all limited patient;s ability to safely perfom mobility tasks. She will require the assistnce of a caregiver and the use of front-wheeled walkerfor all transfer tasks at home. Concerns about need for physical assistnce and safety presented to referring provider and PARMINDER Orellana. Patient presents with clinical signs and symptoms consistent with current/admitting diagnoses that have resulted to mobility limitations, gait instability, generalized weakness, and overall ADL decline as demonstrated by the following impairment level findings: 1. Decreased strength to B UE/LE major muscle groups 2. Impaired sitting/standing balance 3. Impaired activity tolerance 4. Limitation of joint range of motion in B shoulders and hips as well as B ankles 5. Impaired safety awareness 6. Pain in Back and L foot Impairments are contributing to the following functional limitations: 1. Decline in bed mobility skills 2. Decline in transfer skills 3. Difficulty with ambulation without assistive device and physical assistance 4. Increased completion time for mobility ADL performance 5. Increased risk for falls 6. Difficulty with managing steps alone safely Patient is assessed as a [id number] moderate complexity based on the following: History: 78-year-old female with past medical history as indicated above Examination: Demonstrable impairment in strength, balance, and mobility level with underlying impairments and functional limitations as exhibited above as well as deficit score of 58% utilizing the [facility] Mobility Inpatient Short Form Presentation: Evolving Decision Makin moderate complexity Goals: N/A. PT evaluation only. Plan of Care/Treatment Plan: N/A. PT evaluation only. DISCHARGE RECOMMENDATIONS: HH PT vs short-term rehab placement based on availability and ability of caregivers at home. TREATMENT CODE/TIME: 72790 x 20 minutes for 1 unit, 78914 x 24 minutes for 2 units space (14:25?15:09). Thank you for the opportunity to participate in the care of this patient. Please sign and return this page within 14 days if you agree with the above POC. Thank you! Referring Physician's Signature Date Lyudmila Quintanilla PT, DPT, CLT [facility]
== END 2023-10-16 16:07 | disposition home or self-care (01) ==
PROVIDERS: Emergency Provider Physician Assistant; PCP Nurse Practitioner Family
DX: S92.512A Displaced fracture of proximal phalanx of left lesser toe(s), initial encounter for closed fracture (principal); I10 Essential (primary) hypertension; E78.5 Hyperlipidemia, unspecified; J44.9 Chronic obstructive pulmonary disease, unspecified; Z87.891 Personal history of nicotine dependence; W18.39XA Other fall on same level, initial encounter; Y93.01 Activity, walking, marching and hiking; Y92.018 Other place in single-family (private) house as the place of occurrence of the external cause
CPT/HCPCS: 36415; 80053; 97162; 97530; 99285; 70450; 72125; 72128; 72131; 73030; 73590; 73610; 73630; 85025; 99284

== ENCOUNTER 2023-11-01 15:55 | Outpatient (CLI) | payer MEDICARE, SELFPAY ==
[2023-11-01 16:15] LABS: Abs Immature Grans 0.01 10^3/uL (0.0-0.06); Absolute Basophil Count 0.06 10^3/uL (0.0-0.2); Absolute Lymphocyte Count 1.28 10^3/uL (1.2-3.4); Absolute Monocyte Count 0.29 10^3/uL (0.1-0.8); Absolute Neutrophil Count 2.64 10^3/uL (1.2-6.7); Basophils % 1.3 %; Eosinophils % 4.5 %; HCT 31.4 % (36.0-46.0); HGB 9.2 g/dL (11.2-15.7); Immature Grans % 0.2 %; Lymphocytes % 28.6 %; MCH 24.2 pg (27.0-33.0); MCHC 29.3 % (32.0-36.0); MCV 83 fL (80-95); Monocytes % 6.5 %; Neutrophils % 58.9 %; Platelet Count 105 10^3/uL (130-400); RDW 23.8 % (11.7-14.6); RDW-SD 71.3 fL; WBC 4.48 10^3/uL (4.4-10.8)
[2023-11-01 16:23] LABS: Anisocytosis 1+; Diff Comment RBC Morph Reviewed
[2023-11-01 16:49] LABS: ALT 35 U/L (14-59); AST 32 U/L (15-37); Albumin 3.9 g/dL (3.4-5.0); Alkaline Phosphatase 115 U/L (46-116); Anion Gap 9.7 mmol/L (3-11); BUN 25 mg/dL (7-18); Bilirubin, Total 0.77 mg/dL (0.2-1.0); CO2 28.3 mmol/L (21.0-32.0); CREATININE 1.2 mg/dL (0.55-1.02); Calcium 9.2 mg/dL (8.5-10.1); Chloride 103 mmol/L (98-107); Estimated GFR 46.33 (mL/min/1.73m2); Glucose 122 mg/dL (74-106); Potassium 3.9 mmol/L (3.5-5.1); Sodium 141 mmol/L (136-145); Total Protein 7.5 g/dL (6.4-8.2)
[2023-11-04 13:31] LABS: Hepatitis A Antibody IgM Negative (Negative); Hepatitis B Core Antibody Negative (Negative); Hepatitis B surface Ag Negative (Negative); Hepatitis C Ab w Rflx HCV PCR Negative (Negative)
== END 2023-11-01 15:56 | disposition home or self-care (01) ==
LOC: LBO 15:56
PROVIDERS: PCP Nurse Practitioner Family; Visit Provider Nurse Practitioner Family
DX: K74.60 Unspecified cirrhosis of liver (principal); D69.6 Thrombocytopenia, unspecified
CPT/HCPCS: 36415; 80053; 86704; 86709; 86803; 87340; 85025

== ENCOUNTER 2023-11-07 09:47 | Outpatient (REF) | payer MEDICARE, SELFPAY ==
[2023-11-07 21:28] LABS: Bilirubin Negative (Negative); Blood Negative (Negative); Clarity Clear (Clear); Glucose Negative (Negative); Ketones Negative (Negative); Leukocyte Esterase Negative (Negative); Nitrite Negative (Negative); Urobilinogen 0.2 mg/dL (Up to 0.2)
== END 2023-11-07 09:48 | disposition home or self-care (01) ==
LOC: LBN 09:47
PROVIDERS: PCP Nurse Practitioner Family; Visit Provider Nurse Practitioner Family
DX: R41.0 Disorientation, unspecified (principal); Z87.440 Personal history of urinary (tract) infections
CPT/HCPCS: 81003

== ENCOUNTER 2023-11-11 13:11 | Outpatient (REF) | payer MEDICARE, SELFPAY | END 2023-11-11 13:12 | disposition home or self-care (01) | LOC: LBN 13:11 | PROVIDERS: PCP Nurse Practitioner Family; Visit Provider Nurse Practitioner Family | DX: R41.0 Disorientation, unspecified (principal) | CPT/HCPCS: 87086 ==

== ENCOUNTER 2023-11-20 02:35 | Outpatient (CLI) | payer MEDICARE, SELFPAY ==
[2023-11-20 15:06] LABS: HCT 32.6 % (36.0-46.0); HGB 10.1 g/dL (11.2-15.7); MCH 27.1 pg (27.0-33.0); MCV 87 fL (80-95); RBC 3.73 10^6/uL (3.93-5.22); RDW 23.8 % (11.7-14.6); WBC 4.55 10^3/uL (4.4-10.8)
[2023-11-20 15:31] LABS: Platelet Count 77 10^3/uL (130-400)
[2023-11-20 16:16] LABS: ALT 33 U/L (14-59); AST 28 U/L (15-37); Albumin 3.9 g/dL (3.4-5.0); Alkaline Phosphatase 102 U/L (46-116); Anion Gap 7.8 mmol/L (3-11); BUN 37 mg/dL (7-18); Bilirubin, Total 0.88 mg/dL (0.2-1.0); CO2 28.2 mmol/L (21.0-32.0); CREATININE 1.3 mg/dL (0.55-1.02); Calcium 9.4 mg/dL (8.5-10.1); Chloride 105 mmol/L (98-107); Estimated GFR 42.09 (mL/min/1.73m2); Glucose 128 mg/dL (74-106); Potassium 3.8 mmol/L (3.5-5.1); Sodium 141 mmol/L (136-145); Total Protein 7.4 g/dL (6.4-8.2)
== END 2023-11-20 02:36 | disposition home or self-care (01) ==
LOC: LBO 02:35
PROVIDERS: PCP Nurse Practitioner Family; Visit Provider Nurse Practitioner Family
DX: D62 Acute posthemorrhagic anemia (principal)
CPT/HCPCS: 36415; 80053; 85027

== ENCOUNTER 2024-01-03 18:33 | Outpatient (REF) | payer MEDICARE, SELFPAY ==
[2024-01-03 18:10] LABS: Abs Immature Grans 0.01 10^3/uL (0.0-0.06); Absolute Basophil Count 0.04 10^3/uL (0.0-0.2); Absolute Eosinophil Count 0.18 10^3/uL (0.0-0.7); Absolute Lymphocyte Count 0.93 10^3/uL (1.2-3.4); Absolute Neutrophil Count 3.65 10^3/uL (1.2-6.7); Basophils % 0.8 %; Eosinophils % 3.5 %; HCT 38.3 % (36.0-46.0); HGB 12.3 g/dL (11.2-15.7); Immature Grans % 0.2 %; Lymphocytes % 18.2 %; MCH 30.6 pg (27.0-33.0); MCHC 32.1 % (32.0-36.0); MCV 95 fL (80-95); Monocytes % 5.9 %; Neutrophils % 71.4 %; RBC 4.02 10^6/uL (3.93-5.22); RDW 15.3 % (11.7-14.6); RDW-SD 51.5 fL; WBC 5.11 10^3/uL (4.4-10.8)
[2024-01-03 18:24] LABS: ALT 64 U/L (14-59); AST 45 U/L (15-37); Alkaline Phosphatase 149 U/L (46-116); Anion Gap 11.6 mmol/L (3-11); BUN 24 mg/dL (7-18); Bilirubin, Total 1.01 mg/dL (0.2-1.0); CO2 26.4 mmol/L (21.0-32.0); CREATININE 1.2 mg/dL (0.55-1.02); Calcium 10.3 mg/dL (8.5-10.1); Chloride 104 mmol/L (98-107); Estimated GFR 46.33 (mL/min/1.73m2); Glucose 168 mg/dL (74-106); Potassium 4.5 mmol/L (3.5-5.1); Sodium 142 mmol/L (136-145); Total Protein 7.6 g/dL (6.4-8.2)
[2024-01-03 18:40] LABS: Platelet Count 77 10^3/uL (130-400)
[2024-01-03 18:41] LABS: Diff Comment PLT Morph Reviewed; RBC Morphology Normal
== END 2024-01-03 18:34 | disposition home or self-care (01) ==
LOC: LBN 18:33
PROVIDERS: PCP Nurse Practitioner Family; Visit Provider Family Medicine
DX: E78.5 Hyperlipidemia, unspecified (principal)
CPT/HCPCS: 80053; 85025